=== PATIENT | female | born 1950 | race Caucasian/White ===

== ENCOUNTER 2017-11-08 09:55 | Inpatient (IN) | payer MEDICARE, BC ==
[~2017-11-08] VITALS: Ht 152.4 cm; Wt 59.1 kg
[2017-11-08 09:55] VITALS: BP 105/72; PULSE 126; RESP 16; TEMP 98.1; O2SAT 100
--- NOTE | 2017-11-08 10:04 | PD ---
HPI Chief Complaint: Knee pain Time Seen by Provider: 09:57 Travel History International Travel<30 days: No Contact w/Intl Traveler<30days: No History of Present Illness HPI Patient comes emergency department complaining of right knee pain that began yesterday. Patient states that she went to put her shoes on when she slipped out of bed landing on her right knee causing pain. Patient describes pain as a sharp pain over the anterior aspect of her right knee without radiation. Patient reports taking ibuprofen and icing it with minimal relief of symptoms. Not moving her knee improves the pain. Pain is worse with movement and trying to stand. Patient states she normally does not ambulate secondary to having septicemia left in a weakened state. PFSH Past Medical History Atrial Fibrillation: Yes High Cholesterol: Yes Hypertension: Yes Thyroid Disease: Yes Social History Alcohol Use: Yes Tobacco Use: No Substance Use: No Allergies-Medications (Allergen,Severity, Reaction): Coded Allergies: No Known Allergies (Unverified , 11/08/17) Reported Meds & Prescriptions Reported Meds & Active Scripts Active Reported Diltiazem (Diltiazem HCl) 60 Mg Tab 60 Mg PO TID Bupropion HCl 100 Mg Tab 150 Mg PO BID Potassium Chloride ER (Potassium Chloride) 20 Meq Tab 20 Meq PO BID Metoprolol Tartrate 25 Mg Tab 12.5 Mg PO BID Levetiracetam 500 Mg Tab 500 Mg PO BID Vitamin B Complex (B-Complex Vitamins) 1 Tab 1 Tab PO DAILY Rosuvastatin (Rosuvastatin Calcium) 20 Mg Tab 20 Mg PO DAILY Omeprazole 40 Mg Cap 40 Mg PO DAILY Multiple Vitamin 1 Tab 1 Tab PO DAILY Mirtazapine 15 Mg Tab 15 Mg PO HS Melatonin 5 Mg Tab 6 Mg PO HS Levothyroxine (Levothyroxine Sodium) 75 Mcg Tab 75 Mcg PO DAILY Digoxin 0.125 Mg Tab 0.125 Mg PO DAILY Vitamin D3 (Cholecalciferol) 1,000 Unit Cap 1,000 Units DAILY Calcitonin (River) Nasal [place] (Calcitonin River) 200 Units/Act Soln 1 [place] NASAL DAILY Alternate nostrils daily. Aspirin 81 (Aspirin) 81 Mg Tabdr 81 Mg PO DAILY Review of Systems Except as stated in HPI: all other systems reviewed are Neg Physical Exam Narrative GENERAL: Well-developed, well nourished, in no acute distress, and non-ill appearing. SKIN: Focused skin assessment warm and dry. HEAD: Atraumatic. Normocephalic. EYES: Pupils equal and round. EOMI. No scleral icterus. No injection or drainage. ENT: No nasal bleeding or discharge. Mucous membranes pink and moist. NECK: Trachea midline. Supple. No nuclear rigidity. CARDIOVASCULAR: Dorsal pulses 2+, intact, and equal bilaterally. Capillary refill less than 2 seconds. Regular rate and rhythm. No murmur appreciated. RESPIRATORY: No accessory muscle use. No respiratory distress. Lung sounds are clear throughout.. MUSCULOSKELETAL: No obvious deformities. No clubbing. No cyanosis. No edema. Full range of motion. Knee: Negative patellar apprehension, varus and valgus maneuvers, anterior draw test, and Dana test. Pulses equal BL distal to injury. Capillary refill less than 2 seconds distal to injury and equal BL. FROM distal to injury and equal BL. Strength distal to injury equal BL. NV intact distal to injury. Dorsal pulses equal BL. Sensation equal BL 1st web space. Patient reports tenderness palpation over anterior aspect of right knee. NEUROLOGICAL: Awake and alert. No obvious cranial nerve deficits. Motor grossly within normal limits. Normal speech. PSYCHIATRIC: Appropriate mood and affect; insight and judgment normal. Data Data Last Documented VS Vital Signs Date Time Temp Pulse Resp B/P (MAP) Pulse Ox O2 Delivery O2 Flow Rate FiO2 11/08/17 09:55 98.1 126 16 105/72 (83) 100 11/08/17 09:55 Room Air Orders Orders Knee, Complete (4vws) (11/08/17 ) Femur (Ap & Lat/2vws) (11/08/17 ) Basic Metabolic Panel (Bmp) (11/08/17 10:52) Complete Blood Count With Diff (11/08/17 10:52) Prothrombin Time / Inr (Pt) (11/08/17 10:52) Act Partial Throm Time (Ptt) (11/08/17 10:52) Iv Access Insert/Monitor (11/08/17 10:52) Ecg Monitoring (11/08/17 10:52) Oximetry (11/08/17 10:52) Sodium Chloride 0.9% Flush (Ns Flush) (11/08/17 11:00) Electrocardiogram (11/08/17 10:52) Chest, Single Ap (11/08/17 10:52) Digoxin (11/08/17 10:55) Admit Order (Ed Use Only) (11/08/17 11:19) Splint Or Brace Apply/Monitor (11/08/17 11:19) [employer] Request For Service (11/08/17 11:19) Labs Laboratory Tests Test 11/08/17 11:06 White Blood Count 10.4 TH/MM3 Red Blood Count 3.76 MIL/MM3 Hemoglobin 12.8 GM/DL Hematocrit 36.4 % Mean Corpuscular Volume 97.0 FL Mean Corpuscular Hemoglobin 34.0 PG Mean Corpuscular Hemoglobin Concent 35.1 % Red Cell Distribution Width 15.5 % Platelet Count 233 TH/MM3 Mean Platelet Volume 9.7 FL CBC Comment AUTO DIFF Prothrombin Time 13.0 SEC Prothromb Time International Ratio 1.3 RATIO Activated Partial Thromboplast Time 27.0 SEC Blood Urea Nitrogen 17 MG/DL Creatinine 0.89 MG/DL Random Glucose 84 MG/DL Calcium Level 8.1 MG/DL Sodium Level 141 MEQ/L Potassium Level 5.2 MEQ/L Chloride Level 108 MEQ/L Carbon Dioxide Level 25.4 MEQ/L Anion Gap 8 MEQ/L Estimat Glomerular Filtration Rate 64 ML/MIN MDM Medical Decision Making Medical Screen Exam Complete: Yes Emergency Medical Condition: Yes Interpretation(s) EKG reviewed by Dr. Sierra shows sinus tachycardia with ventricular rate of 129. No STEMI. Last Impressions Knee X-Ray 11/08/17 0000 Signed Impressions: Service Date/Time: Wednesday, November 08, 2017 10:03 - CONCLUSION: Spiral and mildly displaced fracture of the distal femur. Js Hunter MD Differential Diagnosis Fracture, strain, contusion, dislocation Narrative Course Patient seen and examined. Initial radiological studies were ordered. Upon reviewing the x-rays findings were discussed with patient patient initially did not want to have surgery done, however speaking with orthopedics patient is not agreeable to have surgical intervention. IV was established and preop orders were placed. Patient was placed in a knee immobilizer. Discussed patient with Dr. Sierra, who is in agreement plan of care and disposition. Discussed plan of care with patient, who is agreeable for admission. All questions were answered. Discussed patient with hospitalist, who is agreeable to admit the patient. Patient remained stable throughout ED course. Physician Communication Physician Communication [id number] Gonzalez, who recommends surgical intervention at [facility] in [place] and admit admission to medicine with a consult to his services. [id number] Chong, who is agreeable to admit the patient. Diagnosis Primary Impression: Closed right femoral fracture Qualified Codes: S72.91XA - Unspecified fracture of right femur, initial encounter for closed fracture Admitting Information Admitting Physician Requests: Admit Condition: Stable Wily Pierce November 08, 2017 10:04
[2017-11-08] MEDS ORDERED: ASPI1TAB57 PO (10:15)
[2017-11-08] MEDS ORDERED: MELA5 PO (10:15)
[2017-11-08] MEDS ORDERED: CHOL10008 (10:15)
[2017-11-08] MEDS ORDERED: DIGO0.12 PO (10:15)
[2017-11-08] MEDS ORDERED: LEVO75TA3 PO (10:15)
[2017-11-08] MEDS ORDERED: CALC200S NASAL (10:15)
--- NOTE | 2017-11-08 10:19 | RADRPT ---
EXAM DATE/TIME: 11/08/2017 10:03 [facility] COMPARISON: No previous studies available for comparison. INDICATIONS : Fall yesterday, right knee pain. MEDICAL HISTORY : None. SURGICAL HISTORY : rt knee scope ENCOUNTER: Initial ACUITY: 2 days PAIN SCORE: 10/10 LOCATION: Right knee FINDINGS: There is a spiral fracture through the distal diametaphysis and metaphysis of the femur with mild sep aration and mild posterior angulation of the distal fracture fragment. Mild soft tissue swelling abo ut the distal femur. Severe osteopenia. Proximal tibia and fibula appear grossly intact. CONCLUSION: Spiral and mildly displaced fracture of the distal femur. Js Hunter MD on November 08, 2017 at 10:17 Board Certified Radiologist. This report was verified electronically.
[2017-11-08] MEDS ORDERED: MIRTA15 PO (10:20)
[2017-11-08] MEDS ORDERED: VITATAB11 PO (10:20)
[2017-11-08] MEDS ORDERED: ROSU1TAB8 PO (10:20)
[2017-11-08] MEDS ORDERED: MULTTAB67 PO (10:20)
[2017-11-08] MEDS ORDERED: LEVE500T8 PO (10:20)
[2017-11-08] MEDS ORDERED: DILT60TA PO (10:20)
[2017-11-08] MEDS ORDERED: BUPR100T4 PO (10:20)
[2017-11-08] MEDS ORDERED: OMEP40CA2 PO (10:20)
[2017-11-08] MEDS ORDERED: POTA-163 PO (10:20)
[2017-11-08] MEDS ORDERED: METO25TA3 PO (10:20)
[2017-11-08] MEDS ORDERED: SODIUM CHLORIDE 0.9% FLUSH 10 ML FLUSH IV FLUSH PRN ×2 (11:00→11:45)
[2017-11-08 11:18] LABS: HEMATOCRIT 36.4 % (35.0-46.0); HEMOGLOBIN 12.8 GM/DL (11.6-15.3); MEAN CORPUSCULAR HGB CONC 35.1 % (32.0-36.0); MEAN PLATELET VOLUME 9.7 FL (7.0-11.0); PLATELET COUNT 233 TH/MM3 (150-450); RED BLOOD COUNT 3.76 MIL/MM3 (4.00-5.30); RED CELL DISTRIBUTION WIDTH 15.5 % (11.6-17.2); WHITE BLOOD COUNT 10.4 TH/MM3 (4.0-11.0)
[2017-11-08 11:38] LABS: CALCIUM 8.1 MG/DL (8.5-10.1)
[2017-11-08 11:39] LABS: BICARBONATE 25.4 MEQ/L (21.0-32.0)
[2017-11-08 11:40] LABS: INTERNATIONAL NORMALIZED RATIO 1.3 RATIO
[2017-11-08 11:42] LABS: CREATININE 0.89 MG/DL (0.50-1.00)
[2017-11-08] MEDS ORDERED: diphenhydrAMINE HCL 25 MG CAP PO PRN (11:45)
[2017-11-08] MEDS ORDERED: MORPHINE SULFATE 8 MG/ML INJ IV PUSH PRN (11:45)
[2017-11-08] MEDS ORDERED: diphenhydrAMINE HCL 50 MG/ML VIAL IV PUSH PRN (11:45)
[2017-11-08] MEDS ORDERED: NALOXONE HCL 0.4 MG/ML AMP IV PUSH PRN (11:45)
--- NOTE | 2017-11-08 11:53 | EKG ---
Date Performed: 11/08/2017 Time Performed: 11:01:46 PTAGE: 67 years EKG: Baseline artifact present PROBABLE SINUS TACHYCARDIA LOW QRS VOLTAGE IN PRECORDIAL LEADS PO SSIBLE ANTERIOR MYOCARDIAL INFARCTION Nonspecific T wave changes ABNORMAL RHYTHM ECG NO PREVIOUS TRACING DOCTOR: Dayron Palomo Interpretating Date/Time 11/08/2017 11:51:34
--- NOTE | 2017-11-08 11:57 | RADRPT ---
EXAM DATE/TIME: 11/08/2017 11:20 [facility] COMPARISON: KNEE RIGHT COMPLETE (4VWS), November 08, 2017, 10:03. INDICATIONS : Fall yesterday, right knee pain. MEDICAL HISTORY : None. SURGICAL HISTORY : right knee scope ENCOUNTER: Subsequent ACUITY: 2 days PAIN SCORE: 10/10 LOCATION: Right knee FINDINGS: 4 views of the right femur demonstrate an oblique fracture displaced by 6 mm in the distal femoral me taphysis. It is better visualized on the dedicated knee x-ray series. Proximal femur is intact. There is mild right hip joint osteoarthritis. Visualized pelvic bones demonstrate no acute finding. There is muscular atrophy but otherwise no acute soft tissue abnormality is seen. There is arterial vascula r calcification. CONCLUSION: There is an oblique mildly displaced fracture of the distal femoral metaphysis. Please refer to knee x-ray series for further description. Zaire Sam MD on November 08, 2017 at 11:50 Board Certified Radiologist. This report was verified electronically.
--- NOTE | 2017-11-08 11:58 | RADRPT ---
EXAM DATE/TIME: 11/08/2017 11:20 [facility] COMPARISON: No previous studies available for comparison. INDICATIONS : Pre op right knee fracture. MEDICAL HISTORY : None. SURGICAL HISTORY : right knee scope ENCOUNTER: Subsequent ACUITY: 2 days PAIN SCORE: 10/10 LOCATION: Right knee FINDINGS: Rotated AP view of the chest demonstrates a normal-sized cardiac silhouette. There is mild atelectasi s at the lung bases secondary to underinflation. No pleural effusion, airspace consolidation, or pneu mothorax is identified. The bones and soft tissues demonstrate no acute finding. There is an old frac ture of the left proximal humerus. CONCLUSION: No acute cardiopulmonary abnormality is identified. Zaire Sam MD on November 08, 2017 at 11:55 Board Certified Radiologist. This report was verified electronically.
[2017-11-08 12:00] LABS: BANDS 1 % (0-6); LYMPHOCYTES 16 % (9-44); MONOCYTES 4 % (0-8); NEUTROPHIL # MANUAL DIFF 8.3 TH/MM3 (1.8-7.7); POLYS (SEG NEUTROPHILS) 79 % (16-70)
[2017-11-08] MEDS: LACTATED RINGER'S 1000 ML INJ 1,000 ML IV SCH ×2 (13:03→21:40)
[2017-11-08 13:11] VITALS: BP 93/67; PULSE 126; RESP 16; O2SAT 94
[2017-11-08 15:30] VITALS: BP 111/67; PULSE 120; RESP 18; TEMP 98.1
--- NOTE | 2017-11-08 19:15 | MB ---
cc: Andry Gonzalez MD DATE: 11/08/2017 REASON FOR CONSULTATION: Right distal femur fracture. HISTORY OF PRESENT ILLNESS: The patient is a 67-year-old female who is a very limited ambulator. The patient essentially does transfers to a wheelchair. She says that this started happening about a year, year and a half ago, when she had sepsis and she says she never really recovered her ability to walk. The patient says that she was going to put her shoes on, she slipped out of bed, landed onto the right knee, causing immediate pain. She describes pain in the anterior aspect of the knee, without specific new numbness or tingling. She says any motion of the knee creates pain. She was admitted to the hospital. X-rays were taken. She was found to have a distal femur fracture. She was transferred from [facility] to the [facility]. PAST MEDICAL HISTORY: Positive for atrial fibrillation, hypertension, thyroid disease, high cholesterol. SOCIAL HISTORY: Does drink alcohol, does not smoke, does not use illicit drugs. ALLERGIES: NO KNOWN DRUG ALLERGIES. MEDICATIONS: See the chart. Note that she is on digoxin and aspirin. REVIEW OF SYSTEMS: A 12 point review of systems is negative except noted in history of present illness. PHYSICAL EXAMINATION: VITAL SIGNS: The patient's temperature is 98.1, pulse 120, respirations 18, blood pressure 111/67. GENERAL: The patient is awake, alert and oriented x 3. She has normal affect, insight and judgment. She is in no significant distress. She is wearing nasal cannula O2. HEENT: Her head is atraumatic. Oropharynx is moist. NECK: Supple. HEART: No murmurs. RESPIRATORY: She has normal inspiratory effort with no labored breathing. BACK: No CVA tenderness. EXTREMITIES: Bilateral upper extremities had good active range of motion. Some minor skin tears noted. Right lower extremity has just some mild swelling. No skin tears were noted. She has normal alignment about the right leg. There is pain with any motion. She can move the toes well and she has brisk refill about the toes. Ankle had no tenderness. Left knee had no swelling. LABORATORY STUDIES: Shows a white cell count of 10.4, hematocrit of 36.4, platelets of 233. Coagulation studies, INR is 1.3. Chemistry shows a calcium of 8.1, chloride 108. Toxicology, digoxin 0.9. IMAGING: X-rays of the right femur and the knee shows that the patient has a distal femur/supracondylar femur fracture which had some mild displacement. It is oblique in orientation. There is some arthritic change about the knee. I did review the report from the radiologist as well and agree with them. IMPRESSION: 1. Right leg, mildly displaced supracondylar femur fracture. 2. Essentially nonambulator. DECISION MAKING: We discussed the diagnosis in detail and treatment options. We discussed the option for operative and nonoperative management of this condition. I do feel that operative management is potentially indicated, as there is a significant chance for this fracture to displace. The patient also says she is going to be traveling and displacement of the fracture could lead to a significant life threatening condition. The patient understands that she will continue to be a limited ambulator, but at least with fixation of the fracture, there is a better chance for pain control and also of having good alignment of the leg, which can ultimately help her in transfer long-term and hopefully to provide further stability and strength to the leg for transfers. She understands the risks of surgery include, but are not limited, to injury to nerves or vessels, bleeding, infection, failure of hardware, need for reoperation, continued pain, loss of range of motion of associated joints, DVT, pulmonary embolus, pneumonia and . The patient does want to move forward with surgical management. All questions have been answered. MD CHARLEE Arvizu/GRACE , 06:41 PM , 07:14 PM
[2017-11-08 20:00] VITALS: BP 97/63; PULSE 115; RESP 20; TEMP 98.9; O2SAT 91
[2017-11-08] MEDS ORDERED: PILL SPLITTER OTHER PRN (20:00)
[2017-11-08 20:45] VITALS: O2SAT 88
[2017-11-08] MEDS: MELATONIN 5 MG TAB PO SCH (21:35)
[2017-11-08] MEDS: DILTIAZEM HCL 60 MG TAB PO SCH (21:35)
[2017-11-08] MEDS: levETIRAcetam 500 MG TAB PO SCH (21:35)
[2017-11-08] MEDS: SODIUM CHLORIDE 0.9% FLUSH 10 ML FLUSH IV FLUSH SCH (21:35)
[2017-11-08] MEDS: METOPROLOL TARTRATE 25 MG TAB PO SCH (21:35)
[2017-11-08] MEDS: MIRTAZAPINE 15 MG TAB PO SCH (21:35)
[2017-11-08] MEDS: buPROPion HCL 100 MG TAB PO SCH (21:35)
[2017-11-08 21:40] VITALS: O2SAT 98
[2017-11-08] MEDS ORDERED: POVIDONE IODINE 5% (ANTISEPSIS KIT) 4 APPLICATIONS EACH NARE PRN (21:45)
[2017-11-08] MEDS ORDERED: METOPROLOL TARTRATE 25 MG TAB PO PRN (21:45)
[2017-11-08] MEDS ORDERED: CHLORHEXIDINE GLUCONATE 2 % 1 PACK (2 CLOTHS) TOPICAL PRN (21:45)
[2017-11-08] MEDS ORDERED: SODIUM CHLORID 0.9% 500 ML IV PRN (21:45)
[2017-11-08] MEDS ORDERED: LACTATED RINGER'S 1000 ML IV PRN (21:45)
[2017-11-08] MEDS: ACETAMINOPHEN/HYDROcodone 325 MG/5 MG TAB PO PRN (22:53)
--- NOTE | 2017-11-08 23:14 | HHI.HP ---
[facility] Service [facility] ([place], [place])ists Primary Care Physician Unknown Admission Diagnosis Closed femur fracture Diagnoses: (1) Closed right femoral fracture (2) Acute respiratory failure with hypoxia Chief Complaint: right knee pain Travel History International Travel<30 Days: No Contact w/Intl Traveler <30 Da: No Traveled to Known Affected Are: No History of Present Illness Ms. Carbone is a 67 y/o female from [place] with a history of generalized weakness requiring an electric scooter for mobilization, hypothyroidism, seizure, atrial fibrillation not on anticoagulation, hypertension, hyperlipidemia, GERD, osteoporosis, and osteoarthritis who fell from a bed and landed on her right knee with subsequent severe pain. She was found to have a mildly displaced spiral fracture of distal femur. The patient is seen in her hospital room. She reports adequate pain relief to right knee with current medications. She states the current pain is about 4-5/ 10. Pain is worsened by any knee movement. She denies any loc, chest pain, sob , syncope, dizziness prior to fall out of bed. Denies any recent illnesses. She reports generalized weakness for the past few years requiring use of an electric scooter for mobility. She states she is able to stand and bear weight but cannot move around due to weakness. She is unable to tell me what caused this weakness. Review of Systems Except as stated in HPI: all other systems reviewed are Neg Past Family Social History Past Medical History Limited mobility secondary to generalized weakness requiring electronic scooter Seizure x 1 - 5 years ago - on Keppra Atrial fibrillation - not on anticoagulation - followed by her pcp Dr. Camarena in [place] Hypertension Hyperlipidemia GERD Nephrolithiasis Arthritis Depression Osteoporosis . Past Surgical History Right ankle plates/pins Right knee arthroscopy Left hip replacement Right shoulder rotator cuff repair Gastric Bypass . Reported Medications Reported Meds & Active Scripts Active Reported Diltiazem (Diltiazem HCl) 60 Mg Tab 60 Mg PO TID Bupropion HCl 100 Mg Tab 150 Mg PO BID Potassium Chloride ER (Potassium Chloride) 20 Meq Tab 20 Meq PO BID Metoprolol Tartrate 25 Mg Tab 12.5 Mg PO BID Levetiracetam 500 Mg Tab 500 Mg PO BID Vitamin B Complex (B-Complex Vitamins) 1 Tab 1 Tab PO DAILY Rosuvastatin (Rosuvastatin Calcium) 20 Mg Tab 20 Mg PO DAILY Omeprazole 40 Mg Cap 40 Mg PO DAILY Multiple Vitamin 1 Tab 1 Tab PO DAILY Mirtazapine 15 Mg Tab 15 Mg PO HS Melatonin 5 Mg Tab 6 Mg PO HS Levothyroxine (Levothyroxine Sodium) 75 Mcg Tab 75 Mcg PO DAILY Digoxin 0.125 Mg Tab 0.125 Mg PO DAILY Vitamin D3 (Cholecalciferol) 1,000 Unit Cap 1,000 Units DAILY Calcitonin ([place]) Nasal [place] (Calcitonin [place]) 200 Units/Act Soln 1 [place] NASAL DAILY Alternate nostrils daily. Aspirin 81 (Aspirin) 81 Mg Tabdr 81 Mg PO DAILY . Allergies: Coded Allergies: No Known Allergies (Unverified , 11/08/17) Family History Brother with emphysema Mother with osteoporosis No family hx of CA . 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 Physical Exam Vital Signs Vital Signs Date Time Temp Pulse Resp B/P (MAP) Pulse Ox O2 Delivery O2 Flow Rate FiO2 11/08/17 20:00 98.9 115 20 97/63 (74) 91 11/08/17 18:40 85 Nasal Cannula 2.00 11/08/17 15:30 98.1 120 18 111/67 (82) 11/08/17 14:07 11/08/17 13:11 126 16 93/67 (76) 94 Room Air 11/08/17 09:55 98.1 126 16 105/72 (83) 100 11/08/17 09:55 16 100 Room Air Physical Exam CONSTITUTIONAL: This is a thin, elderly female patient, in no apparent distress. INTEGUMENTARY: No rashes. Cool and dry. Multiple ecchymoses noted on extremities. HEAD: Atraumatic. Normocephalic. EYES: No scleral icterus. No injection or drainage. ENT: Nose without bleeding, purulent drainage. Airway patent. NECK: Trachea midline. No JVD. CARDIOVASCULAR: Regular rate and rhythm without murmurs, gallops, or rubs. RESPIRATORY: Clear to auscultation. Breath sounds diminished at bases, equal bilaterally. No wheezes, rales, or rhonchi. GASTROINTESTINAL: Abdomen soft, non-tender, nondistended. No guarding. MUSCULOSKELETAL: Extremities without clubbing, cyanosis, or edema. No calf tenderness. NEUROLOGICAL: Awake and alert. Motor and sensory grossly within normal limits. Normal speech. . Laboratory Laboratory Tests Test 11/08/17 11:06 11/08/17 20:33 White Blood Count 10.4 Red Blood Count 3.76 Hemoglobin 12.8 Hematocrit 36.4 Mean Corpuscular Volume 97.0 Mean Corpuscular Hemoglobin 34.0 Mean Corpuscular Hemoglobin Concent 35.1 Red Cell Distribution Width 15.5 Platelet Count 233 Mean Platelet Volume 9.7 CBC Comment AUTO DIFF Differential Total Cells Counted 100 Neutrophils % (Manual) 79 Band Neutrophils % 1 Lymphocytes % 16 Monocytes % 4 Neutrophils # (Manual) 8.3 Differential Comment FINAL DIFF MANUAL Platelet Estimate NORMAL Platelet Morphology Comment NORMAL Prothrombin Time 13.0 Prothromb Time International Ratio 1.3 Activated Partial Thromboplast Time 27.0 Blood Urea Nitrogen 17 Creatinine 0.89 Random Glucose 84 Calcium Level 8.1 Sodium Level 141 Potassium Level 5.2 Chloride Level 108 Carbon Dioxide Level 25.4 Anion Gap 8 Estimat Glomerular Filtration Rate 64 Digoxin Level 0.9 Blood Gas Puncture Site LT RADIAL Blood Gas Patient Temperature 98.6 Blood Gas HCO3 22 Blood Gas Base Excess -0.8 Blood Gas Oxygen Saturation 84 Arterial Blood pH 7.48 Arterial Blood Partial Pressure CO2 30 Arterial Blood Partial Pressure O2 52 Arterial Blood Oxygen Content 11.8 Arterial Blood Carboxyhemoglobin 0.8 Arterial Blood Methemoglobin 1.4 Blood Gas Hemoglobin 10.0 Oxygen Delivery Device NASAL CANNULA Blood Gas Liter Flow 2 Result Diagram: 11/08/17 1106 11/08/17 1106 Imaging Last Impressions Chest X-Ray 11/08/17 1052 Signed Impressions: Service Date/Time: Wednesday, November 08, 2017 11:20 - CONCLUSION: No acute cardiopulmonary abnormality is identified. Zaire Sam MD Knee X-Ray 11/08/17 0000 Signed Impressions: Service Date/Time: Wednesday, November 08, 2017 10:03 - CONCLUSION: Spiral and mildly displaced fracture of the distal femur. Js Hunter MD Femur X-Ray 11/08/17 0000 Signed Impressions: Service Date/Time: Wednesday, November 08, 2017 11:20 - CONCLUSION: There is an oblique mildly displaced fracture of the distal femoral metaphysis. Please refer to knee x-ray series for further description. MD Nalini Howard VTE Risk Assessment Caprini VTE Risk Assessment: Mod/High Risk (score >= 2) Caprini Risk Assessment Model Point Value = 1 Point Value = 2 Point Value = 3 Point Value = 5 Age 41-60 Minor surgery BMI > 25 kg/m2 Swollen legs Varicose veins or History of unexplained or recurrent spontaneous Oral contraceptives or hormone replacement Sepsis (< 1 month) Serious lung disease, including pneumonia (< 1 month) Abnormal pulmonary function Acute myocardial infarction Congestive heart failure (< 1 month) History of inflammatory bowel disease Medical patient at bed rest Age 61-74 Arthroscopic surgery Major open surgery (> 45 min) Laparoscopic surgery (> 45 min) Malignancy Confined to bed (> 72 hours) Immobilizing plaster cast Central venous access Age >= 75 History of VTE Family history of VTE Factor V Leiden Prothrombin [id number] Lupus anticoagulant Anticardiolipin antibodies Elevated serum homocysteine Heparin-induced thrombocytopenia Other congenital or acquired thrombophilia Stroke (< 1 month) Elective arthroplasty Hip, pelvis, or leg fracture Acute spinal cord injury (< 1 month) Prophylaxis Regimen Total Risk Factor Score Risk Level Prophylaxis Regimen 0-1 Low Early ambulation 2 Moderate Order ONE of the following: *Sequential Compression Device (SCD) *Heparin 5000 units SQ BID 3-4 Higher Order ONE of the following medications: *Heparin 5000 units SQ TID *Enoxaparin/Lovenox 40 mg SQ daily (WT < 150 kg, CrCl > 30 mL/min) *Enoxaparin/Lovenox 30 mg SQ daily (WT < 150 kg, CrCl > 10-29 mL/min) *Enoxaparin/Lovenox 30 mg SQ BID (WT < 150 kg, CrCl > 30 mL/min) AND/OR *Sequential Compression Device (SCD) 5 or more Highest Order ONE of the following medications: *Heparin 5000 units SQ TID (Preferred with Epidurals) *Enoxaparin/Lovenox 40 mg SQ daily (WT < 150 kg, CrCl > 30 mL/min) *Enoxaparin/Lovenox 30 mg SQ daily (WT < 150 kg, CrCl > 10-29 mL/min) *Enoxaparin/Lovenox 30 mg SQ BID (WT < 150 kg, CrCl > 30 mL/min) AND *Sequential Compression Device (SCD) Assessment and Plan Problem List: (1) Closed right femoral fracture ICD Code: S72.91XA - Unspecified fracture of right femur, initial encounter for closed fracture Status: Acute (2) Acute respiratory failure with hypoxia ICD Code: J96.01 - Acute respiratory failure with hypoxia Assessment and Plan Ms. Carbone is a 67 y/o female from [place] with a history of generalized weakness requiring an electric scooter for mobilization, hypothyroidism, seizure, atrial fibrillation not on anticoagulation, hypertension, hyperlipidemia, GERD, osteoporosis, and osteoarthritis who fell from a bed and landed on her right knee with subsequent severe pain. She was found to have a mildly displaced spiral fracture of distal femur. Closed right femoral fracture - orthopedics consulted; patient seen by Dr. Gonzalez - morphine/norco prn pain - NPO for surgical repair Acute respiratory failure with hypoxia - ABG with oxygen saturation 84 % pO2 52 on 2 liters via NC - oxygen upwardly titrating - patient not in respiratory distress at any time - CXR personally reviewed with mild atelectasis at lung bases - no acute cardiopulmonary process noted - will check d dimer; if elevated, will check CT PA to r/o PE Atrial fibrillation - continuous cardiac telemetry to monitor for arrhythmia - continue home metoprolol,dig and diltiazem - not on anticoagulation per patient - on baby ASA per med rec - holding asa for now Daily alcohol use of uncertain amount - will place on CIWA protocol - Thiamine, MVI IV Seizures - continue home Keppra - seizure precautions DVT prophylaxis - chemoprophylaxis contraindicated at this time due to pending orthopedic surgery - SCDs/TEDs on unaffected extremity Discussed Condition With Patient, RN, parking technician, and Dr. Villar . Physician Certification 2 Midnight Certification Type: Admission for Inpatient Services Order for Inpatient Services The services are ordered in accordance with Medicare regulations or non- Medicare payer requirements, as applicable. In the case of services not specified as inpatient-only, they are appropriately provided as inpatient services in accordance with the 2-midnight benchmark. Estimated LOS (days): 4 days is the estimated time the patient will need to remain in the hospital, assuming treatment plan goals are met and no additional complications. Post-Hospital Plan: Not yet determined Problem Qualifiers (1) Closed right femoral fracture: Qualified Codes: S72.91XA - Unspecified fracture of right femur, initial encounter for closed fracture Elizabeth Issa November 08, 2017 23:14
[2017-11-09] VITALS: BP 111/65; PULSE 91; RESP 20; TEMP 98.4; O2SAT 100
[2017-11-09] MEDS ORDERED: SODIUM CHLORIDE 0.9% FLUSH 10 ML FLUSH IV FLUSH PRN (02:45)
[2017-11-09] MEDS ORDERED: LORazepam 2 MG/ML VIAL IV PUSH PRN ×4 (02:45)
[2017-11-09] MEDS ORDERED: LORazepam 2 MG TAB PO PRN (02:45)
[2017-11-09] MEDS ORDERED: FLUMAZENIL 0.5 MG/5 ML VIAL IV PUSH PRN (02:45)
[2017-11-09] MEDS ORDERED: LORazepam 1 MG TAB PO PRN (02:45)
[2017-11-09] MEDS: ACETAMINOPHEN/HYDROcodone 325 MG/5 MG TAB PO PRN ×2 (03:12→09:14)
[2017-11-09 03:20] LABS: AUTOMATED NEUTROPHIL # 5.1 TH/MM3 (1.8-7.7); BASOPHIL % 0.1 % (0.0-2.0); EOSINOPHIL # 0.1 TH/MM3 (0-0.4); EOSINOPHIL % 0.8 % (0.0-4.0); HEMATOCRIT 31.3 % (35.0-46.0); HEMOGLOBIN 10.9 GM/DL (11.6-15.3); LYMPH % 27.6 % (9.0-44.0); LYMPHOCYTE # 2.2 TH/MM3 (1.0-4.8); MEAN CELL VOLUME 98.9 FL (80.0-100.0); MEAN CORPUSCULAR HEMOGLOBIN 34.3 PG (27.0-34.0); MEAN CORPUSCULAR HGB CONC 34.7 % (32.0-36.0); MEAN PLATELET VOLUME 9.3 FL (7.0-11.0); MONO % 5.6 % (0.0-8.0); MONOCYTE # 0.4 TH/MM3 (0-0.9); NEUT % 65.9 % (16.0-70.0); PLATELET COUNT 157 TH/MM3 (150-450); RED BLOOD COUNT 3.16 MIL/MM3 (4.00-5.30); WHITE BLOOD COUNT 7.8 TH/MM3 (4.0-11.0)
[2017-11-09 03:31] LABS: ALT (GPT) 28 U/L (10-53); AST (GOT) 34 U/L (15-37); BICARBONATE 29.5 MEQ/L (21.0-32.0); BLOOD UREA NITROGEN 16 MG/DL (7-18); CALCIUM 7.6 MG/DL (8.5-10.1); CHLORIDE 108 MEQ/L (98-107); CREATININE 0.76 MG/DL (0.50-1.00); GLOMERULAR FILTRATION RATE 76 ML/MIN (>89); GLUCOSE,RANDOM 67 MG/DL (74-106); SODIUM (NA) 144 MEQ/L (136-145)
[2017-11-09 03:33] LABS: ALKALINE PHOSPHATASE 264 U/L (45-117); TOTAL BILIRUBIN ADULT 1.3 MG/DL (0.2-1.0); TOTAL PROTEIN 4.2 GM/DL (6.4-8.2)
[2017-11-09] MEDS ORDERED: DEXTROSE 50% IN WATER 50 ML SYRINGE IV PUSH ONE (03:45)
[2017-11-09] MEDS ORDERED: DEXTROSE 5% IN WATE 1000ML INJ 1,000 ML IV SCH (03:45)
[2017-11-09 04:00] VITALS: BP 99/62; PULSE 70; RESP 20; TEMP 98.2; O2SAT 100
[2017-11-09] MEDS ORDERED: IOHEXOL 350 MG/ML 10 ML VIAL (for RAD DIAG) IVCONTRAST ONE (04:21)
--- NOTE | 2017-11-09 04:46 | RADRPT ---
EXAM DATE/TIME: 11/09/2017 04:14 [facility] COMPARISON: CHEST SINGLE AP, November 08, 2017, 11:20. INDICATIONS : Shortness of breath. IV CONTRAST: 45 cc Omnipaque 350 (iohexol) IV RADIATION DOSE: 8.74 CTDIvol (mGy) MEDICAL HISTORY : Hypertension. Gastroesophageal reflux disease. Femur fracture. SURGICAL HISTORY : Gastric bypass. ENCOUNTER: Initial ACUITY: 1 day PAIN SCALE: 4/10 LOCATION: Bilateral chest TECHNIQUE: Volumetric scanning of the chest was performed using a pulmonary embolism protocol MIP images were re constructed. Using automated exposure control and adjustment of the mA and/or kV according to patien t size, radiation dose was kept as low as reasonably achievable to obtain optimal diagnostic quality images. DICOM format image data is available electronically for review and comparison. Follow-up recommendations for detected pulmonary nodules are based at a minimum on nodule size and pa tient risk factors according to Fleischner Society Guidelines. FINDINGS: PULMONARY ARTERIES: Very tiny pulmonary embolus to the right upper lobe pulmonary artery. Pulmonary arteries are otherwis e clear LUNGS: Scattered areas of pleural parenchymal atelectasis/scarring, left greater than right small bilateral pleural effusions with concomitant atelectatic changes in the dependent portions of the lower hemitho races bilaterally. PLEURAE: Small bilateral pleural effusions. MEDIASTINUM: There is good visualization of the great vessels of the middle mediastinum. No evidence of mediastin al or hilar adenopathy/mass. Dense atherosclerotic calcification of the coronary arteries. MUSCULOSKELETAL: Within normal limits for patient age. MISCELLANEOUS: The visualized upper abdominal organs demonstrate no acute abnormality. Diffuse hepatic fatty infiltr ation CONCLUSION: 1. There is a very tiny, isolated pulmonary embolus to the upper lobe right pulmonary artery. Pulmona ry artery is otherwise clear. 2. Patchy pleural-parenchymal and atelectasis/scarring in both hemithoraces, left than right. There i s also small bilateral pleural effusions with concomitant atelectatic changes in the bases. 3. Dense atherosclerotic calcification of the coronary arteries. 4. Diffuse hepatic fatty infiltration Juno Conway MD on November 09, 2017 at 4:41 Board Certified Radiologist. This report was verified electronically.
[2017-11-09] MEDS: MULTIVITAMIN INJ 10 ML, FOLIC ACID INJ 1 MG in SODIUM CHLORID 0.9% 500 ML INJ 500 ML IV SCH (05:00)
[2017-11-09] MEDS: THIAMINE INJ 100 MG in SODIUM CHLORIDE 0.9% INJ 100 ML IV SCH (05:00)
[2017-11-09] MEDS: DILTIAZEM HCL 60 MG TAB PO SCH ×3 (06:00→21:33)
[2017-11-09] MEDS: LEVOTHYROXINE SODIUM 75 MCG TAB PO SCH (06:25)
[2017-11-09 08:00] VITALS: BP 100/66; PULSE 68; RESP 18; TEMP 98; O2SAT 99
[2017-11-09] MEDS ORDERED: DILTIAZEM HCL 60 MG TAB PO SCH (09:00)
[2017-11-09] MEDS ORDERED: NON-FORMULARY DRUG (Rosuvastatin 20 MG) PO SCH (09:00)
[2017-11-09] MEDS ORDERED: SODIUM CHLORIDE 0.9% FLUSH 10 ML FLUSH IV FLUSH SCH (09:00)
[2017-11-09] MEDS ORDERED: NON-FORMULARY DRUG (Omeprazole 40 MG) PO SCH (09:00)
[2017-11-09] MEDS: METOPROLOL TARTRATE 25 MG TAB PO SCH ×2 (09:03→21:11)
[2017-11-09] MEDS: buPROPion HCL 100 MG TAB PO SCH ×2 (09:03→21:34)
[2017-11-09] MEDS: PANTOPRAZOLE SOD 40 MG DELAYED RELEASE TAB PO SCH (09:03)
[2017-11-09] MEDS: levETIRAcetam 500 MG TAB PO SCH ×2 (09:04→21:11)
[2017-11-09] MEDS: DIGOXIN 0.125 MG TAB PO SCH (09:04)
[2017-11-09] MEDS: ATORVASTATIN 40 MG TAB PO SCH (09:04)
--- NOTE | 2017-11-09 11:49 | HHI.PR ---
Subjective Remarks Follow up patient with femur fracture. Patient is awaiting ortho eval for surgery. States pain is controlled, worse with movement. Denies any chest pain or SOB. 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 Objective Vitals Vital Signs Date Time Temp Pulse Resp B/P (MAP) Pulse Ox O2 Delivery O2 Flow Rate FiO2 11/09/17 08:00 98.0 68 18 100/66 (77) 99 11/09/17 04:00 98.2 70 20 99/62 (74) 100 11/09/17 03:00 Nasal Cannula 3.00 11/09/17 00:00 98.4 91 20 111/65 (80) 100 11/09/17 00:00 Nasal Cannula 4.00 11/08/17 21:40 98 11/08/17 20:45 88 Nasal Cannula 2.00 11/08/17 20:40 Nasal Cannula 5.00 11/08/17 20:00 98.9 115 20 97/63 (74) 91 11/08/17 19:35 Nasal Cannula 2.00 11/08/17 18:40 85 Nasal Cannula 2.00 11/08/17 15:30 98.1 120 18 111/67 (82) 11/08/17 14:07 11/08/17 13:11 126 16 93/67 (76) 94 Room Air I/O 11/08/17 11/08/17 11/08/17 11/09/17 11/09/17 11/09/17 07:00 15:00 23:00 07:00 15:00 23:00 Intake Total 624 ml 987 ml Balance 624 ml 987 ml Intake Oral 440 ml IV Total 624 ml 547 ml # Voids 3 # Bowel Movements 0 Result Diagram: 11/09/17 0228 11/09/17 0228 Objective Remarks SKIN: Warm and dry. CARDIOVASCULAR: Regular rate and rhythm. RESPIRATORY: No accessory muscle use. Clear to auscultation. Breath sounds equal bilaterally. GASTROINTESTINAL: Abdomen soft, non-tender, nondistended. Hepatic and splenic margins not palpable. MUSCULOSKELETAL: CKS to right extremity, pulses palpable Urinary Catheter: No Vascular Central Line Catheter: No A/P Problem List: (1) Closed right femoral fracture ICD Code: S72.91XA - Unspecified fracture of right femur, initial encounter for closed fracture Status: Acute (2) Acute respiratory failure with hypoxia ICD Code: J96.01 - Acute respiratory failure with hypoxia Assessment and Plan Ms. Carbone is a 67 y/o female from [place] with a history of generalized weakness requiring an electric scooter for mobilization, hypothyroidism, seizure, atrial fibrillation not on anticoagulation, hypertension, hyperlipidemia, GERD, osteoporosis, and osteoarthritis who fell from a bed and landed on her right knee with subsequent severe pain. She was found to have a mildly displaced spiral fracture of distal femur. Closed right femoral fracture -- orthopedics consulted; patient seen by Dr. Gonzalez -- morphine/norco prn pain -- NPO for surgical repair Acute respiratory failure with hypoxia CT PA reviewed and shows a tj tiny pulmonary embolus to the upper lobe right pulmonary artery. 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 Atrial fibrillation - continuous cardiac telemetry to monitor for arrhythmia - continue home metoprolol,dig and diltiazem - not on anticoagulation per patient - on baby ASA per med rec - holding asa for now Daily alcohol use of uncertain amount - will place on CIWA protocol - Thiamine, MVI IV -Withdraw precautions Seizures - continue home Keppra - seizure precautions DVT prophylaxis - chemoprophylaxis contraindicated at this time due to pending orthopedic surgery - SCDs/TEDs on unaffected extremity Problem Qualifiers (1) Closed right femoral fracture: Qualified Codes: S72.91XA - Unspecified fracture of right femur, initial encounter for closed fracture Kiersten Heaton November 09, 2017 11:49
[2017-11-09 12:00] VITALS: BP 114/75; PULSE 75; RESP 18; TEMP 98.5; O2SAT 100
[2017-11-09] MEDS ORDERED: ROCURONIUM INJ 50 MG/5 ML SYRINGE IV PUSH ONE (12:00)
[2017-11-09] MEDS ORDERED: GLYCOPYRROLATE 1 MG/5 ML SYRINGE IV PUSH ONE (12:00)
[2017-11-09] MEDS ORDERED: NEOSTIGMINE 5 MG/5 ML SYRINGE IV PUSH ONE (12:00)
[2017-11-09] MEDS ORDERED: LACTATED RINGER'S 1000 ML INJ 1,000 ML IV ONE (12:00)
[2017-11-09] MEDS ORDERED: ONDANSETRON HCL 4 MG/2 ML VIAL IV ONE (12:00)
[2017-11-09] MEDS ORDERED: LIDOCAINE HCL 1% PF 5 ML SYRINGE OTHER ONE (12:00)
[2017-11-09] MEDS ORDERED: DEXAMETHASONE SOD PHOS 4 MG/ML VIAL IV ONE (12:00)
[2017-11-09] MEDS ORDERED: ePHEDrine/NS 25 MG/5 ML SYRINGE IV ONE (12:00)
[2017-11-09] MEDS ORDERED: STERILE WATER FOR INJECTION 20 ML VIAL IV ONE (12:00)
[2017-11-09] MEDS ORDERED: PHENYLEPH/NS 1000 MCG/10 ML SYR IV ONE (12:00)
[2017-11-09] MEDS ORDERED: PROPOFOL 200 MG/20 ML AMP IV ONE (12:00)
[2017-11-09] MEDS ORDERED: VANCOMYCIN HCL 1000 MG VIAL ONE (12:43)
[2017-11-09] MEDS ORDERED: ceFAZolin INJ 1,000 MG VIAL ONE (12:43)
[2017-11-09] MEDS ORDERED: GENTAMICIN SULFATE 80 MG/2 ML VIAL ONE (12:43)
[2017-11-09] MEDS ORDERED: COMMODE 3-IN-11 MIS (14:04)
[2017-11-09] MEDS ORDERED: WALKER WHEELS/F1 MIS (14:04)
[2017-11-09] MEDS ORDERED: diphenhydrAMINE HCL 25 MG CAP PO PRN (14:45)
[2017-11-09] MEDS ORDERED: NALOXONE HCL 0.4 MG/ML AMP IV PUSH PRN (14:45)
[2017-11-09] MEDS ORDERED: Post-op Orders (for Pharmacy) XX ONE (14:45)
[2017-11-09] MEDS ORDERED: ONDANSETRON HCL 4 MG/2 ML VIAL IVP PRN (14:45)
[2017-11-09] MEDS ORDERED: MAGNESIUM HYDROXIDE SUSP 30 ML CUP PO PRN (14:45)
[2017-11-09] MEDS ORDERED: NURSING INFORMATION XX PRN (14:45)
[2017-11-09] MEDS ORDERED: ACETAMINOPHEN/HYDROcodone 325 MG/5 MG TAB PO PRN ×2 (14:45)
[2017-11-09] MEDS ORDERED: PHARMACY INFORMATION XX ONE (14:45)
--- NOTE | 2017-11-09 14:45 | RADRPT ---
EXAM DATE/TIME: 11/09/2017 14:32 [facility] COMPARISON: FEMUR RIGHT (AP & LAT/2VWS), November 08, 2017, 11:20. FLUOROSCOPY PORTABLE UP TO 1HR, November 09, 2017, 0:00 . INDICATIONS : ORIF right femur fracture. MEDICAL HISTORY : Unobtainable. SURGICAL HISTORY : Unobtainable. ENCOUNTER: Subsequent ACUITY: 2 days PAIN SCORE: Non-responsive. LOCATION: Right femur. FINDINGS: The exam demonstrates a medullary elliott placement within the right femur. The elliott is in excellent posit ion. There is no evidence of palpitations. CONCLUSION: 1. Intramedullary elliott in place on the right. Elliott appears in satisfactory position. 2. There is excellent alignment of the distal femur fracture. Nirav Birmingham MD on November 09, 2017 at 14:42 Board Certified Radiologist. This report was verified electronically.
--- NOTE | 2017-11-09 14:56 | PD.OP ---
cc: Andry Gonzalez MD Operative Report Date of Surgery: November 09, 2017 Preoperative Diagnosis: Right leg mildly displaced supracondylar femur fracture Postoperative Diagnosis: Same Procedure: Right leg intramedullary nail fixation of supracondylar femur fracture. Anesthesia: General Surgeon: Andry Gonzalez Hull Sorter(s): DARWIN Foy The surgical procedure was assisted by my Advanced Registered Nurse Practitioner. My RELAY MAN presence was necessary throughout this case for the manipulation and positioning of the surgical extremity. My RELAY MAN was assisting me throughout the duration of this procedure. The skill set of an Advance Registered Nurse Practitioner was medically necessary to complete this procedure. During the surgical case, the surgical device sales representative was working at the back table and the Advance Registered Nurse Practitioner was directly assisting me. Resident Surgeon: Estimated blood loss: 100 cc Implants: Synthes 13 x 360. The patient received intravenous vancomycin and Ancef. After the appropriate anesthesia was administered, the patient's leg was prepped and draped in the usual sterile fashion. We made a standard incision on the anterior aspect of the knee through skin and subcutaneous tissue, in line with the mid aspect of the patella tendon. We incised through the tendon in a longitudinal fashion in the mid aspect. We entered through the deep capsule. Hematoma was evacuated. The supracondylar femur fracture was anatomically reduced. We used a threaded guidewire placed into the appropriate position on the AP and lateral views along the physeal line. We then drilled distally protecting the patella with a sheath. We placed a ball-tipped guidewire past the fracture site up to the intertrochanteric region. We measured the appropriate length for the nail. We sequentially reamed up to 1 mm larger than the nail. We had good cortical chatter. Distally the nail was secured using the appropriate guide. We placed 3 screws from lateral to medial. These had fair to good purchase given her significant osteoporosis. Proximally the nail was visualized using perfect [place] technique. We placed a single screw with very good purchase. We took final fluoroscopic imaging showing good alignment. The wounds were all irrigated including the arthrotomy site distally removing hematoma and any small fragments of bone from the initial drilling. The patella tendon was closed in line using 0 Vicryl. Skin was closed using 2-0 Vicryl and miko. A canvas knee splint was applied. The postoperative plan is for nonweightbearing, the use of a Canvas knee splint , and DVT prophylaxis with Lovenox followed by aspirin. Andry Gonzalez MD November 09, 2017 14:56
[2017-11-09] MEDS ORDERED: NORC5TAB PO (14:59)
[2017-11-09] MEDS ORDERED: ENOX40IN SQ (14:59)
[2017-11-09] MEDS ORDERED: ASPI-183 PO (14:59)
[2017-11-09] MEDS ORDERED: DO NOT ADM ANY ANTICOAGULANT DRUGS PRN (15:06)
[2017-11-09] MEDS: DEXT 5%-NACL 0.45% 1000 ML INJ 1,000 ML IV SCH (15:15)
[2017-11-09 19:50] VITALS: BP 95/56; PULSE 66; RESP 18; TEMP 97.7; O2SAT 91
[2017-11-09 20:00] VITALS: PULSE 64
[2017-11-09] MEDS: SODIUM CHLORIDE 0.9% FLUSH 10 ML FLUSH IV FLUSH SCH (21:00)
[2017-11-09] MEDS: MELATONIN 5 MG TAB PO SCH (21:10)
[2017-11-09] MEDS: MIRTAZAPINE 15 MG TAB PO SCH (21:10)
[2017-11-09] MEDS: DOCUSATE SODIUM 50 MG/SENNA 8.6 MG TAB PO SCH (21:12)
[2017-11-10] VITALS (7 sets, daily range): BP systolic 94–107; BP diastolic 55–68; PULSE 59–73; RESP 17–20; TEMP 97.6–98.2; O2SAT 94–98
[2017-11-10] MEDS: DEXT 5%-NACL 0.45% 1000 ML INJ 1,000 ML IV SCH (01:04)
[2017-11-10] MEDS: THIAMINE INJ 100 MG in SODIUM CHLORIDE 0.9% INJ 100 ML IV SCH (05:37)
[2017-11-10] MEDS: LEVOTHYROXINE SODIUM 75 MCG TAB PO SCH (05:37)
[2017-11-10] MEDS: DILTIAZEM HCL 60 MG TAB PO SCH ×2 (05:38→21:09)
[2017-11-10] MEDS: MULTIVITAMIN INJ 10 ML, FOLIC ACID INJ 1 MG in SODIUM CHLORID 0.9% 500 ML INJ 500 ML IV SCH (06:09)
[2017-11-10] MEDS ORDERED: APIX5TAB PO (08:57)
[2017-11-10] MEDS: SODIUM CHLORIDE 0.9% FLUSH 10 ML FLUSH IV FLUSH SCH ×2 (09:00→21:00)
[2017-11-10] MEDS: METOPROLOL TARTRATE 25 MG TAB PO SCH ×2 (09:00→21:27)
[2017-11-10] MEDS: DIGOXIN 0.125 MG TAB PO SCH (09:56)
[2017-11-10] MEDS: PANTOPRAZOLE SOD 40 MG DELAYED RELEASE TAB PO SCH (09:57)
[2017-11-10] MEDS: ATORVASTATIN 40 MG TAB PO SCH (09:57)
[2017-11-10] MEDS: DOCUSATE SODIUM 50 MG/SENNA 8.6 MG TAB PO SCH ×2 (09:57→21:08)
[2017-11-10] MEDS: buPROPion HCL 100 MG TAB PO SCH ×2 (09:57→21:08)
[2017-11-10] MEDS: levETIRAcetam 500 MG TAB PO SCH ×2 (09:57→21:08)
[2017-11-10] MEDS: MULTIVITAMINS/MINERALS THERAPEUTIC TAB PO SCH (09:57)
--- NOTE | 2017-11-10 10:47 | HHI.PR ---
Subjective Remarks Follow up femur fracture. Patient is slightly confused since surgery. is at bedside to discuss treatment plan. They are from out of town and is concerned when she can fly. Discussed possible CIR option with him and he is open to it. Patient denies any surgical pain, just complains of stiffness. No chest pain or sob noted. Objective Vitals Vital Signs Date Time Temp Pulse Resp B/P (MAP) Pulse Ox O2 Delivery O2 Flow Rate FiO2 11/10/17 07:52 98.1 65 17 95/61 (72) 95 11/10/17 04:00 97.6 72 18 94/55 (68) 97 11/10/17 00:00 59 11/10/17 00:00 97.8 60 18 107/68 (81) 98 11/09/17 20:00 64 11/09/17 19:50 97.7 66 18 95/56 (69) 91 11/09/17 17:15 Nasal Cannula 2.00 11/09/17 15:45 97.6 67 14 115/65 (82) 98 Nasal Cannula 3 11/09/17 15:30 68 14 115/65 (82) 97 Nasal Cannula 3 11/09/17 15:15 67 14 113/69 (84) 96 Nasal Cannula 3 11/09/17 15:06 97.6 78 14 114/68 (83) 94 Nasal Cannula 3 11/09/17 12:00 98.5 75 18 114/75 (88) 100 I/O 11/09/17 11/09/17 11/09/17 11/10/17 11/10/17 11/10/17 07:00 15:00 23:00 07:00 15:00 23:00 Intake Total 987 ml 1000 ml 1100 ml 120 ml Output Total 330 ml 300 ml Balance 987 ml 670 ml 1100 ml -180 ml Intake Oral 440 ml 120 ml IV Total 547 ml 1100 ml Other 1000 ml Output Urine Total 230 ml 300 ml Estimated Blood Loss 100 ml # Voids 3 2 # Bowel Movements 0 0 0 Result Diagram: 11/09/1722711/09/17227 Objective Remarks SKIN: Warm and dry. CARDIOVASCULAR: Regular rate and rhythm. RESPIRATORY: No accessory muscle use. Clear to auscultation. Breath sounds equal bilaterally. GASTROINTESTINAL: Abdomen soft, non-tender, nondistended. Hepatic and splenic margins not palpable. MUSCULOSKELETAL: CKS to right extremity, pulses palpable Neuro: Slightly confused. Urinary Catheter: Yes Assessment to: Remove Vascular Central Line Catheter: No A/P Problem List: (1) Closed right femoral fracture ICD Code: S72.91XA - Unspecified fracture of right femur, initial encounter for closed fracture Status: Acute (2) Acute respiratory failure with hypoxia ICD Code: J96.01 - Acute respiratory failure with hypoxia Assessment and Plan Ms. Carbone is a 67 y/o female from [place] with a history of generalized weakness requiring an electric scooter for mobilization, hypothyroidism, seizure, atrial fibrillation not on anticoagulation, hypertension, hyperlipidemia, GERD, osteoporosis, and osteoarthritis who fell from a bed and landed on her right knee with subsequent severe pain. She was found to have a mildly displaced spiral fracture of distal femur. Closed right femoral fracture - orthopedics consulted; patient seen by Dr. Gonzalez and is following - morphine/norco prn pain - PT eval pending Acute respiratory failure with hypoxia CT PA reviewed and shows a tj tiny pulmonary embolus to the upper lobe right pulmonary artery. - ABG with oxygen saturation 84 % pO2 52 on 2 liters via NC -Cont o2 -patient not in respiratory distress at any time -11/10 placed patient on eliquis 5mg BID for 90 days, instructed patients about follow up with PCP when they return to [place] Atrial fibrillation - continuous cardiac telemetry to monitor for arrhythmia - continue home metoprolol,dig and diltiazem -Due to PE patient may benefit from life long anticoagulation Daily alcohol use of uncertain amount - will place on CIWA protocol - Thiamine, MVI IV -Withdraw precautions Seizures - continue home Keppra - seizure precautions Hypotension, likely due to anaesthesia -Cont to monitor -IVF for hydration until patient eats and drinks well -Trendelenburg as needed DVT prophylaxis: Eliquis - SCDs/TEDs on unaffected extremity Discharge Planning SNF vs CIR possible in the next 2 days, patient is from out of town so family is on a time constraint Problem Qualifiers (1) Closed right femoral fracture: Qualified Codes: S72.91XA - Unspecified fracture of right femur, initial encounter for closed fracture Kiersten Heaton November 10, 2017 10:47
--- NOTE | 2017-11-10 13:15 | PD.ORT.PN ---
Subjective Post Op Day #: 1 Subjective Remarks Patient is resting comfortably in bed in NAD. Patient reports minimal pain to the RLE. Patient denies CP or SOB Objective Vitals Vital Signs Date Time Temp Pulse Resp B/P (MAP) Pulse Ox O2 Delivery O2 Flow Rate FiO2 11/10/17 11:53 98.2 69 17 97/57 (70) 95 11/10/17 11:36 94 21 11/10/17 07:52 98.1 65 17 95/61 (72) 95 11/10/17 04:00 97.6 72 18 94/55 (68) 97 11/10/17 00:00 59 11/10/17 00:00 97.8 60 18 107/68 (81) 98 11/09/17 20:00 64 11/09/17 19:50 97.7 66 18 95/56 (69) 91 11/09/17 17:15 Nasal Cannula 2.00 11/09/17 15:45 97.6 67 14 115/65 (82) 98 Nasal Cannula 3 11/09/17 15:30 68 14 115/65 (82) 97 Nasal Cannula 3 11/09/17 15:15 67 14 113/69 (84) 96 Nasal Cannula 3 11/09/17 15:06 97.6 78 14 114/68 (83) 94 Nasal Cannula 3 I/O 11/09/17 11/09/17 11/09/17 11/10/17 11/10/17 11/10/17 07:00 15:00 23:00 07:00 15:00 23:00 Intake Total 987 ml 1000 ml 1100 ml 120 ml Output Total 330 ml 300 ml Balance 987 ml 670 ml 1100 ml -180 ml Intake Oral 440 ml 120 ml IV Total 547 ml 1100 ml Other 1000 ml Output Urine Total 230 ml 300 ml Estimated Blood Loss 100 ml # Voids 3 2 # Bowel Movements 0 0 0 Result Diagram: 11/09/1722711/09/17227 Procedures Right IMN of supracondular femur fracture Pulmonary Embolism Objective Remarks The patient's dressing is C/D/I. EHL/TA/G intact. 2+ pedal pulse. Calf is soft and nontender. +SILT distally. Assessment & Plan Ortho Post Op Day #: 1 Problem List: Assessment and Plan POD #1: Right IMN of supracondular femur fracture Pulmonary Embolism 1. NWB RLE. Chronic nonambulator 2. Eliquis for DVT prophylaxis and management on recent diagnosis of PE. Scripts changed in chart. 3. Ice to the right femur PRN 4. Stable for discharge to SNF when medically cleared. Patient resides outside of the [facility] in [place]. 5. F/U in the office with Dr. Gonzalez or JESSICA Rothman as previously scheduled. Nirav Carranza November 10, 2017 13:15
[2017-11-10] MEDS: APIXABAN 5 MG TABLET PO SCH ×2 (13:39→21:09)
[2017-11-10] MEDS ORDERED: ENOXAPARIN SODIUM 40 MG/0.4 ML SYRINGE SQ SCH (15:00)
[2017-11-10] MEDS ORDERED: LACTATED RINGER'S 1000 ML INJ 1,000 ML IV ONE (15:30)
[2017-11-10 17:39] LABS: AUTOMATED NEUTROPHIL # 10.9 TH/MM3 (1.8-7.7); HEMATOCRIT 28.8 % (35.0-46.0); HEMOGLOBIN 9.6 GM/DL (11.6-15.3); LYMPH % 9.4 % (9.0-44.0); LYMPHOCYTE # 1.2 TH/MM3 (1.0-4.8); MEAN CELL VOLUME 102.5 FL (80.0-100.0); MEAN CORPUSCULAR HEMOGLOBIN 34.1 PG (27.0-34.0); MEAN CORPUSCULAR HGB CONC 33.3 % (32.0-36.0); MEAN PLATELET VOLUME 9.9 FL (7.0-11.0); MONO % 4.3 % (0.0-8.0); MONOCYTE # 0.5 TH/MM3 (0-0.9); NEUT % 86.3 % (16.0-70.0); PLATELET COUNT 168 TH/MM3 (150-450); RED BLOOD COUNT 2.81 MIL/MM3 (4.00-5.30); RED CELL DISTRIBUTION WIDTH 16.1 % (11.6-17.2); WHITE BLOOD COUNT 12.6 TH/MM3 (4.0-11.0)
[2017-11-10 17:58] LABS: BICARBONATE 21.9 MEQ/L (21.0-32.0); CALCIUM 7.7 MG/DL (8.5-10.1); CREATININE 0.72 MG/DL (0.50-1.00)
[2017-11-10] MEDS: MELATONIN 5 MG TAB PO SCH (21:08)
[2017-11-10] MEDS: MIRTAZAPINE 15 MG TAB PO SCH (21:08)
[2017-11-11] VITALS (7 sets, daily range): BP systolic 80–102; BP diastolic 52–60; PULSE 70–106; RESP 18–20; TEMP 97.2–98; O2SAT 92–95
[2017-11-11] MEDS: THIAMINE INJ 100 MG in SODIUM CHLORIDE 0.9% INJ 100 ML IV SCH (05:03)
[2017-11-11] MEDS: DILTIAZEM HCL 60 MG TAB PO SCH ×3 (05:03→21:22)
[2017-11-11] MEDS: MULTIVITAMIN INJ 10 ML, FOLIC ACID INJ 1 MG in SODIUM CHLORID 0.9% 500 ML INJ 500 ML IV SCH (05:03)
[2017-11-11] MEDS: LEVOTHYROXINE SODIUM 75 MCG TAB PO SCH (05:03)
[2017-11-11 06:56] LABS: AUTOMATED NEUTROPHIL # 8.1 TH/MM3 (1.8-7.7); BASOPHIL % 0.1 % (0.0-2.0); EOSINOPHIL % 0.2 % (0.0-4.0); HEMATOCRIT 28.5 % (35.0-46.0); HEMOGLOBIN 9.7 GM/DL (11.6-15.3); LYMPH % 18.5 % (9.0-44.0); MEAN CELL VOLUME 101.6 FL (80.0-100.0); MEAN CORPUSCULAR HEMOGLOBIN 34.6 PG (27.0-34.0); MEAN PLATELET VOLUME 9.8 FL (7.0-11.0); MONO % 5.4 % (0.0-8.0); MONOCYTE # 0.6 TH/MM3 (0-0.9); NEUT % 75.8 % (16.0-70.0); PLATELET COUNT 174 TH/MM3 (150-450); RED BLOOD COUNT 2.81 MIL/MM3 (4.00-5.30); WHITE BLOOD COUNT 10.7 TH/MM3 (4.0-11.0)
[2017-11-11 07:34] LABS: BICARBONATE 24.2 MEQ/L (21.0-32.0); CALCIUM 7.4 MG/DL (8.5-10.1); CREATININE 0.68 MG/DL (0.50-1.00)
[2017-11-11 07:47] LABS: TOTAL PROTEIN 4.3 GM/DL (6.4-8.2)
[2017-11-11] MEDS: METOPROLOL TARTRATE 25 MG TAB PO SCH (09:00)
[2017-11-11] MEDS: SODIUM CHLORIDE 0.9% FLUSH 10 ML FLUSH IV FLUSH SCH ×2 (09:00→21:00)
[2017-11-11] MEDS: levETIRAcetam 500 MG TAB PO SCH ×2 (09:35→21:22)
[2017-11-11] MEDS: PANTOPRAZOLE SOD 40 MG DELAYED RELEASE TAB PO SCH (09:35)
[2017-11-11] MEDS: DOCUSATE SODIUM 50 MG/SENNA 8.6 MG TAB PO SCH ×2 (09:35→21:21)
[2017-11-11] MEDS: MULTIVITAMINS/MINERALS THERAPEUTIC TAB PO SCH (09:36)
[2017-11-11] MEDS: DIGOXIN 0.125 MG TAB PO SCH (09:36)
[2017-11-11] MEDS: ATORVASTATIN 40 MG TAB PO SCH (09:36)
[2017-11-11] MEDS: APIXABAN 5 MG TABLET PO SCH ×2 (09:36→21:21)
[2017-11-11] MEDS: buPROPion HCL 100 MG TAB PO SCH (09:37)
--- NOTE | 2017-11-11 16:56 | HHI.PR ---
Subjective Remarks Denies cp/sob. C/o pain on RLE Denies diarrhea, nausea, vomiting or abdominal pain. Objective Vitals Vital Signs Date Time Temp Pulse Resp B/P (MAP) Pulse Ox O2 Delivery O2 Flow Rate FiO2 11/11/17 15:52 97.7 80 19 91/56 (68) 95 11/11/17 08:34 92 11/11/17 07:43 97.3 70 19 94/53 (67) 92 11/11/17 00:00 72 11/11/17 00:00 97.2 73 20 102/60 (74) 94 11/10/17 20:29 95 21 11/10/17 20:00 97.8 73 20 104/58 (73) 94 11/10/17 20:00 72 I/O 11/10/17 11/10/17 11/10/17 11/11/17 11/11/17 11/11/17 07:00 15:00 23:00 07:00 15:00 23:00 Intake Total 120 ml 800 ml 650 ml Output Total 300 ml 450 ml 500 ml Balance -180 ml 350 ml -500 ml 650 ml Intake Oral 120 ml 800 ml 650 ml Output Urine Total 300 ml 450 ml 500 ml # Voids 4 # Bowel Movements 0 0 0 2 Result Diagram: 11/11/17 0610 11/11/17 0610 Imaging Last Impressions Femur X-Ray 11/09/17 0000 Signed Impressions: Service Date/Time: Thursday, November 09, 2017 14:32 - CONCLUSION: 1. Intramedullary elliott in place on the right. Elliott appears in satisfactory position. 2. There is excellent alignment of the distal femur fracture. Nirav Birmingham MD CT Angiography 11/09/17 0000 Signed Impressions: Service Date/Time: Thursday, November 09, 2017 04:14 - CONCLUSION: 1. There is a very tiny, isolated pulmonary embolus to the upper lobe right pulmonary artery. Pulmonary artery is otherwise clear. 2. Patchy pleural-parenchymal and atelectasis/scarring in both hemithoraces, left than right. There is also small bilateral pleural effusions with concomitant atelectatic changes in the bases. 3. Dense atherosclerotic calcification of the coronary arteries. 4. Diffuse hepatic fatty infiltration Juno Conway MD Chest X-Ray 11/08/17 1052 Signed Impressions: Service Date/Time: Wednesday, November 08, 2017 11:20 - CONCLUSION: No acute cardiopulmonary abnormality is identified. Zaire Sam MD Knee X-Ray 11/08/17 0000 Signed Impressions: Service Date/Time: Wednesday, November 08, 2017 10:03 - CONCLUSION: Spiral and mildly displaced fracture of the distal femur. Js Hunter MD Objective Remarks SKIN: Warm and dry. CARDIOVASCULAR: Regular rate and rhythm. RESPIRATORY: No accessory muscle use. Clear to auscultation. Breath sounds equal bilaterally. GASTROINTESTINAL: Abdomen soft, non-tender, nondistended. Hepatic and splenic margins not palpable. MUSCULOSKELETAL: CKS to right extremity, pulses palpable Procedures Right leg intramedullary nail fixation of supracondylar femur fracture. A/P Problem List: (1) Closed right femoral fracture ICD Code: S72.91XA - Unspecified fracture of right femur, initial encounter for closed fracture Status: Acute (2) Acute respiratory failure with hypoxia ICD Code: J96.01 - Acute respiratory failure with hypoxia Assessment and Plan Ms. Carbone is a 67 y/o female from [place] with a history of generalized weakness requiring an electric scooter for mobilization, hypothyroidism, seizure, atrial fibrillation not on anticoagulation, hypertension, hyperlipidemia, GERD, osteoporosis, and osteoarthritis who fell from a bed and landed on her right knee with subsequent severe pain. She was found to have a mildly displaced spiral fracture of distal femur. Closed right femoral fracture - orthopedics consulted; patient seen by Dr. Gonzalez and is following - morphine/norco prn pain - PT eval pending Acute respiratory failure with hypoxia CT PA reviewed and shows a tj tiny pulmonary embolus to the upper lobe right pulmonary artery. - ABG with oxygen saturation 84 % pO2 52 on 2 liters via NC -Cont o2 -patient not in respiratory distress at any time -11/10 placed patient on eliquis 5mg BID for 90 days, instructed patients about follow up with PCP when they return to [place] Atrial fibrillation - continuous cardiac telemetry to monitor for arrhythmia -Due to PE patient may benefit from life long anticoagulation -11/11 persistent chronic atrial fibrillation. Telemetry shows atrial fibrillation which is rate controlled. Continue diltiazem and digoxin. Hold beta-paty given concurrent hypotension. Daily alcohol use of uncertain amount - will place on CIWA protocol - Thiamine, MVI IV -Withdraw precautions -11/11 no evidence of alcohol withdrawal. Seizures - continue home Keppra - seizure precautions - 11/11 no evidence of seizures. Hypotension -Cont to monitor -IVF for hydration until patient eats and drinks well -Trendelenburg as needed 11/11 possibly due to anesthesia. However the patient still hypotensive, could be secondary to pain medications. Hold metoprolol, will add holding parameters to diltiazem. Will give 500 mils normal saline IV bolus 1. Pulmonary emboli -CT pulmonary angiogram showed a very tiny isolated pulmonary embolus to the upper lobe right of the pulmonary artery. It also showed a patchy pleural parenchymal atelectasis versus scarring in both endorses. Small bilateral pleural effusions with concomitant atelectatic changes in the bases. -Continue supplemental oxygen as needed. - Incentive spirometry. - Patient is on Apixaban 5 mg PO BID. DVT prophylaxis: Eliquis - SCDs/TEDs on unaffected extremity Problem Qualifiers (1) Closed right femoral fracture: Qualified Codes: S72.91XA - Unspecified fracture of right femur, initial encounter for closed fracture Erik Juarez MD November 11, 2017 16:56
[2017-11-11] MEDS ORDERED: SODIUM CHLORID 0.9% 500 ML INJ 500 ML IV ONE ×2 (17:00→20:30)
--- NOTE | 2017-11-11 17:23 | PD.ORT.PN ---
Subjective Post Op Day #: 2 Subjective Remarks Patient is resting comfortably in bed in NAD. Patient reports mild pain to the RLE. Patient denies CP or SOB. Patient c/o right calf pain. Objective Vitals Vital Signs Date Time Temp Pulse Resp B/P (MAP) Pulse Ox O2 Delivery O2 Flow Rate FiO2 11/11/17 15:52 97.7 80 19 91/56 (68) 95 11/11/17 08:34 92 11/11/17 07:43 97.3 70 19 94/53 (67) 92 11/11/17 00:00 72 11/11/17 00:00 97.2 73 20 102/60 (74) 94 11/10/17 20:29 95 21 11/10/17 20:00 97.8 73 20 104/58 (73) 94 11/10/17 20:00 72 I/O 11/10/17 11/10/17 11/10/17 11/11/17 11/11/17 11/11/17 07:00 15:00 23:00 07:00 15:00 23:00 Intake Total 120 ml 800 ml 650 ml Output Total 300 ml 450 ml 500 ml Balance -180 ml 350 ml -500 ml 650 ml Intake Oral 120 ml 800 ml 650 ml Output Urine Total 300 ml 450 ml 500 ml # Voids 4 # Bowel Movements 0 0 0 2 Result Diagram: 11/11/17 0610 11/11/17 0610 Procedures Right IMN of supracondular femur fracture Pulmonary Embolism Objective Remarks The patient's dressing is C/D/I. EHL/TA/G intact. 2+ pedal pulse. Calf is soft with mild tenderness to palpation. +SILT distally. Assessment & Plan Ortho Post Op Day #: 2 Problem List: Assessment and Plan POD #2: Right IMN of supracondular femur fracture Pulmonary Embolism 1. NWB RLE. Chronic nonambulator 2. Eliquis for DVT prophylaxis and management on recent diagnosis of PE. Scripts changed in chart. 3. Ice to the right femur PRN 4. Stable for discharge to SNF when medically cleared. Patient resides outside of the [facility] in [place]. 5. F/U in the office with Dr. Gonzalez or JESSICA Rothman as previously scheduled. 6. Stat US to BLEs. Will follow results. Nirav Carranza November 11, 2017 17:23
[2017-11-11] MEDS: KETOROLAC TROMETHAMINE 10 MG TAB PO PRN (18:47)
--- NOTE | 2017-11-11 20:00 | RADRPT ---
EXAM DATE/TIME: 11/11/2017 19:06 [facility] COMPARISON: No previous studies available for comparison. INDICATIONS : Right leg pain s/p femur fracture 2 days ago. MEDICAL HISTORY : Hypertension. Hypercholesterolemia. Renal calculi. Seizure. Hypothyroidism. SURGICAL HISTORY : Gastric Bypass. Right Femur Repair. Right Ankle repair. Left hip replacement. ENCOUNTER: Initial ACUITY: 2 day PAIN SCORE: 7/10 LOCATION: Bilateral legs. TECHNIQUE: Venous ultrasound of the left and right leg was performed from the inguinal ligament to the proximal calf. Real-time, color Doppler and spectral tracing, compression and augmentation techniques were us ed. FINDINGS: RIGHT LEG: The examination is positive for nonocclusive deep venous thrombosis in the right common femoral vein just above the bifurcation. Remainder of the right lower extremity veins are patent. LEFT LEG: There is normal compressibility of the deep venous system from the inguinal region to the proximal ca lf. No echogenic clot is seen in the lumen of the common femoral, femoral, popliteal, and posterior tibial veins. There is a normal response of the venous system to proximal and distal augmentation an d respiration. CONCLUSION: 1. Positive for nonocclusive deep venous thrombosis right common femoral vein. Negative left lower ex tremity DVT study. Dawson Lakhani MD on November 11, 2017 at 19:57 Board Certified Radiologist. This report was verified electronically.
[2017-11-11] MEDS: MELATONIN 5 MG TAB PO SCH (21:21)
[2017-11-11] MEDS: ACETAMINOPHEN 325 MG TAB PO PRN (21:21)
[2017-11-11] MEDS: MIRTAZAPINE 15 MG TAB PO SCH (21:21)
[2017-11-11] MEDS: SODIUM CHLOR 0.9% 1000 ML INJ 1,000 ML IV SCH (21:55)
[2017-11-12] VITALS (11 sets, daily range): BP systolic 85–104; BP diastolic 53–63; PULSE 75–103; RESP 17–19; TEMP 97.4–98.8; O2SAT 88–97
[2017-11-12] MEDS: SODIUM CHLOR 0.9% 1000 ML INJ 1,000 ML IV SCH ×3 (00:06→21:55)
[2017-11-12] MEDS: KETOROLAC TROMETHAMINE 10 MG TAB PO PRN ×3 (01:35→19:24)
[2017-11-12] MEDS: DILTIAZEM HCL 60 MG TAB PO SCH ×3 (05:29→21:55)
[2017-11-12] MEDS: LEVOTHYROXINE SODIUM 75 MCG TAB PO SCH (05:29)
[2017-11-12] MEDS: ACETAMINOPHEN 325 MG TAB PO PRN (05:30)
[2017-11-12] MEDS: MULTIVITAMIN INJ 10 ML, FOLIC ACID INJ 1 MG in SODIUM CHLORID 0.9% 500 ML INJ 500 ML IV SCH (06:20)
--- NOTE | 2017-11-12 07:03 | PD.ORT.PN ---
Subjective Subjective Remarks Resting comfortably with no new complaints. Objective Vitals Vital Signs Date Time Temp Pulse Resp B/P (MAP) Pulse Ox O2 Delivery O2 Flow Rate FiO2 11/12/17 04:00 97.4 79 19 104/61 (75) 97 11/12/17 00:02 75 11/12/17 00:00 98.8 77 19 99/58 (72) 93 11/11/17 21:20 93 Nasal Cannula 2.00 11/11/17 21:00 81 80/52 (61) 11/11/17 20:30 106 11/11/17 20:00 98.0 80 18 80/52 (61) 93 11/11/17 15:52 97.7 80 19 91/56 (68) 95 11/11/17 08:34 92 11/11/17 07:43 97.3 70 19 94/53 (67) 92 I/O 11/11/17 11/11/17 11/11/17 11/12/17 11/12/17 11/12/17 07:00 15:00 23:00 07:00 15:00 23:00 Intake Total 650 ml 700 ml Output Total 500 ml Balance -500 ml 650 ml 700 ml Intake Oral 650 ml 700 ml Output Urine Total 500 ml # Voids 4 3 # Bowel Movements 0 2 Result Diagram: 11/11/17 0610 11/11/17 0610 Procedures Right IMN of supracondular femur fracture Pulmonary Embolism Objective Remarks The patient's dressing is C/D/I. EHL/TA/G intact. 2+ pedal pulse. Calf is soft with mild tenderness to palpation. +SILT distally. Assessment & Plan Assessment and Plan POD #3: Right IMN of supracondular femur fracture Pulmonary Embolism 1. NWB RLE. Chronic nonambulator 2. Eliquis for DVT prophylaxis and management on recent diagnosis of PE. Scripts changed in chart. 3. Ice to the right femur PRN 4. Stable for discharge to SNF when medically cleared. Patient resides outside of the [facility] in [place]. 5. F/U in the office with Dr. Gonzalez or JESSICA Rothman as previously scheduled. 6. Stat US to BLEs. Will follow results. Evaristo Elaine Jr. November 12, 2017 07:03
[2017-11-12] MEDS: PANTOPRAZOLE SOD 40 MG DELAYED RELEASE TAB PO SCH (09:08)
[2017-11-12] MEDS: ATORVASTATIN 40 MG TAB PO SCH (09:08)
[2017-11-12] MEDS: MULTIVITAMINS/MINERALS THERAPEUTIC TAB PO SCH (09:08)
[2017-11-12] MEDS: DIGOXIN 0.125 MG TAB PO SCH (09:09)
[2017-11-12] MEDS: APIXABAN 5 MG TABLET PO SCH ×2 (09:09→21:54)
[2017-11-12] MEDS: levETIRAcetam 500 MG TAB PO SCH ×2 (09:09→21:54)
[2017-11-12] MEDS: DOCUSATE SODIUM 50 MG/SENNA 8.6 MG TAB PO SCH ×2 (09:09→21:54)
[2017-11-12] MEDS: SODIUM CHLORIDE 0.9% FLUSH 10 ML FLUSH IV FLUSH SCH ×2 (09:09→21:55)
[2017-11-12] MEDS: THIAMINE HCL 100 MG TAB PO SCH (09:09)
--- NOTE | 2017-11-12 13:23 | HHI.PR ---
Subjective Remarks Patient's oxygen saturation dropping down into the low 80s. Patient denies chest pain or shortness of breath. Denies fevers or chills. As per review of records the patient was given 1.5 L bolus of normal saline overnight because of hypotension. Objective Vitals Vital Signs Date Time Temp Pulse Resp B/P (MAP) Pulse Ox O2 Delivery O2 Flow Rate FiO2 11/12/17 13:06 91 21 11/12/17 12:19 98.2 90 17 90/57 (68) 88 11/12/17 08:10 97.9 83 18 101/63 (76) 97 11/12/17 04:04 76 11/12/17 04:00 97.4 79 19 104/61 (75) 97 11/12/17 00:02 75 11/12/17 00:00 98.8 77 19 99/58 (72) 93 11/11/17 21:20 93 Nasal Cannula 2.00 11/11/17 21:00 81 80/52 (61) 11/11/17 20:30 106 11/11/17 20:00 98.0 80 18 80/52 (61) 93 11/11/17 15:52 97.7 80 19 91/56 (68) 95 I/O 11/11/17 11/11/17 11/11/17 11/12/17 11/12/17 11/12/17 07:00 15:00 23:00 07:00 15:00 23:00 Intake Total 650 ml 100 ml 1800 ml Output Total 500 ml Balance -500 ml 650 ml 100 ml 1800 ml Intake Oral 650 ml 700 ml IV Total 100 ml 1100 ml Output Urine Total 500 ml # Voids 4 3 # Bowel Movements 0 2 Result Diagram: 11/11/17 0610 11/11/17 0610 Imaging Last Impressions Lower Extremity Ultrasound 11/11/17 0000 Signed Impressions: Service Date/Time: Saturday, November 11, 2017 19:06 - CONCLUSION: 1. Positive for nonocclusive deep venous thrombosis right common femoral vein. Negative left lower extremity DVT study. Dawson Lakhani MD Femur X-Ray 11/09/17 0000 Signed Impressions: Service Date/Time: Thursday, November 09, 2017 14:32 - CONCLUSION: 1. Intramedullary elliott in place on the right. Elliott appears in satisfactory position. 2. There is excellent alignment of the distal femur fracture. Nirav Birmingham MD CT Angiography 11/09/17 0000 Signed Impressions: Service Date/Time: Thursday, November 09, 2017 04:14 - CONCLUSION: 1. There is a very tiny, isolated pulmonary embolus to the upper lobe right pulmonary artery. Pulmonary artery is otherwise clear. 2. Patchy pleural-parenchymal and atelectasis/scarring in both hemithoraces, left than right. There is also small bilateral pleural effusions with concomitant atelectatic changes in the bases. 3. Dense atherosclerotic calcification of the coronary arteries. 4. Diffuse hepatic fatty infiltration Juno Conway MD Chest X-Ray 11/08/17 1052 Signed Impressions: Service Date/Time: Wednesday, November 08, 2017 11:20 - CONCLUSION: No acute cardiopulmonary abnormality is identified. Zaire Sam MD Knee X-Ray 11/08/17 0000 Signed Impressions: Service Date/Time: Wednesday, November 08, 2017 10:03 - CONCLUSION: Spiral and mildly displaced fracture of the distal femur. Js Hunter MD Objective Remarks SKIN: Warm and dry. CARDIOVASCULAR: Regular rate and rhythm. RESPIRATORY: No accessory muscle use. Clear to auscultation. Breath sounds equal bilaterally. GASTROINTESTINAL: Abdomen soft, non-tender, nondistended. Hepatic and splenic margins not palpable. MUSCULOSKELETAL: CKS to right extremity, pulses palpable Procedures Right leg intramedullary nail fixation of supracondylar femur fracture. A/P Problem List: (1) Closed right femoral fracture ICD Code: S72.91XA - Unspecified fracture of right femur, initial encounter for closed fracture Status: Acute (2) Acute respiratory failure with hypoxia ICD Code: J96.01 - Acute respiratory failure with hypoxia Status: Acute (3) Pulmonary embolism ICD Code: I26.99 - Other pulmonary embolism without acute cor pulmonale Status: Acute (4) DVT (deep venous thrombosis) ICD Code: I82.409 - Acute embolism and thrombosis of unspecified deep veins of unspecified lower extremity Status: Acute (5) Hypotension ICD Code: I95.9 - Hypotension, unspecified Status: Acute (6) HTN (hypertension) ICD Code: I10 - Essential (primary) hypertension Status: Chronic (7) HLD (hyperlipidemia) ICD Code: E78.5 - Hyperlipidemia, unspecified Status: Chronic (8) Chronic a-fib ICD Code: I48.2 - Chronic atrial fibrillation Status: Chronic (9) Postoperative anemia due to acute blood loss ICD Code: D62 - Acute posthemorrhagic anemia Status: Acute (10) Alcohol abuse ICD Code: F10.10 - Alcohol abuse, uncomplicated Status: Chronic Assessment and Plan Ms. Carbone is a 67 y/o female from [place] with a history of generalized weakness requiring an electric scooter for mobilization, hypothyroidism, seizure, atrial fibrillation not on anticoagulation, hypertension, hyperlipidemia, GERD, osteoporosis, and osteoarthritis who fell from a bed and landed on her right knee with subsequent severe pain. She was found to have a mildly displaced spiral fracture of distal femur. Closed right femoral fracture - orthopedics consulted; patient seen by Dr. Gonzalez and is following - morphine/norco prn pain - PT recommended PT at rehab. Acute respiratory failure with hypoxia Pulmonary embolus. CT PA reviewed and shows a tj tiny pulmonary embolus to the upper lobe right pulmonary artery. - ABG with oxygen saturation 84 % pO2 52 on 2 liters via NC -Cont o2 -patient not in respiratory distress at any time -11/10 placed patient on eliquis 5mg BID for 90 days, instructed patients about follow up with PCP when they return to [place]. - 11/11 patient satting well on 2 L nasal cannula earlier today. However now patient's oxygen is dropping down to the low 80s on room air. Continue supplemental oxygen to keep oxygen saturation more than 92%, stat chest x-ray, suspect patient has fluid overload since the patient is getting of the IV fluid boluses and was started on IV fluids overnight. Will give Lasix 40 mg IV once. Discontinue IV fluids. Case discussed with RN. Atrial fibrillation - continuous cardiac telemetry to monitor for arrhythmia -Due to PE patient may benefit from life long anticoagulation -11/11 persistent chronic atrial fibrillation. Telemetry shows atrial fibrillation which is rate controlled. Continue diltiazem and digoxin. Hold beta-paty given concurrent hypotension. - 11/12 continue to hold beta-paty, continue diltiazem with holding parameters. Daily alcohol use of uncertain amount - will place on CIWA protocol - Thiamine, MVI IV -Withdraw precautions -11/11 no evidence of alcohol withdrawal. Seizures - continue home Keppra - seizure precautions - 11/11 no evidence of seizures. Hypotension -Cont to monitor -IVF for hydration until patient eats and drinks well -Trendelenburg as needed 5/ possibly due to anesthesia. However the patient still hypotensive, could be secondary to pain medications. Hold metoprolol, will add holding parameters to diltiazem. Will give 500 mils normal saline IV bolus 1. 5/5 start the patient on Midodrin for continued hypotension. Continue to hold beta-paty. Obtained blood pressure with correct cuff size and 120/84. Pulmonary emboli -CT pulmonary angiogram showed a very tiny isolated pulmonary embolus to the upper lobe right of the pulmonary artery. It also showed a patchy pleural parenchymal atelectasis versus scarring in both endorses. Small bilateral pleural effusions with concomitant atelectatic changes in the bases. -Continue supplemental oxygen as needed. - Incentive spirometry. - Patient is on Apixaban 5 mg PO BID. DVT prophylaxis: Eliquis - SCDs/TEDs on unaffected extremity Discharge Planning Continue to monitor in the medical floor secondary to worsening hypoxemia. Problem Qualifiers (1) Closed right femoral fracture: Qualified Codes: S72.91XA - Unspecified fracture of right femur, initial encounter for closed fracture Erik Juarez MD November 12, 2017 13:23
[2017-11-12] MEDS ORDERED: FUROSEMIDE 40 MG/4 ML VIAL IV PUSH ONE (13:30)
[2017-11-12] MEDS: MIDODRINE 5 MG TAB PO SCH ×2 (13:41→18:27)
--- NOTE | 2017-11-12 13:47 | RADRPT ---
EXAM DATE/TIME: 11/12/2017 13:27 [facility] COMPARISON: CHEST SINGLE AP, November 08, 2017, 11:20. INDICATIONS : Shortness of breath. MEDICAL HISTORY : Hypertension. Hypercholesterolemia. Renal calculi. Seizure. Hypothyroidism. SURGICAL HISTORY : Gastric Bypass. Right Femur Repair. Right Ankle repair. ENCOUNTER: Initial ACUITY: 4 - 6 days PAIN SCORE: 0/10 LOCATION: Bilateral chest FINDINGS: Single AP view of the chest. Patchy opacity at the medial left lung base indicating atelectasis versu s mild consolidation. Lungs otherwise clear. Lung volumes are low. No evidence of pleural effusion or pneumothorax. CONCLUSION: Mild patchy atelectasis versus consolidation medial left lung base. Louie Hope MD on November 12, 2017 at 13:44 Board Certified Radiologist. This report was verified electronically.
[2017-11-12] MEDS: MELATONIN 5 MG TAB PO SCH (21:54)
[2017-11-12] MEDS: MIRTAZAPINE 15 MG TAB PO SCH (21:55)
[2017-11-13] VITALS (7 sets, daily range): BP systolic 92–101; BP diastolic 55–63; PULSE 74–111; RESP 15–20; TEMP 97.8–98.5; O2SAT 90–99
[2017-11-13] MEDS: MULTIVITAMIN INJ 10 ML, FOLIC ACID INJ 1 MG in SODIUM CHLORID 0.9% 500 ML INJ 500 ML IV SCH (04:52)
[2017-11-13] MEDS: DILTIAZEM HCL 60 MG TAB PO SCH ×3 (04:59→23:00)
[2017-11-13] MEDS: SODIUM CHLOR 0.9% 1000 ML INJ 1,000 ML IV SCH ×3 (04:59→23:57)
[2017-11-13] MEDS: MIDODRINE 5 MG TAB PO SCH ×3 (05:56→16:49)
[2017-11-13] MEDS: LEVOTHYROXINE SODIUM 75 MCG TAB PO SCH (05:56)
[2017-11-13] MEDS: MULTIVITAMINS/MINERALS THERAPEUTIC TAB PO SCH (08:18)
[2017-11-13] MEDS: ATORVASTATIN 40 MG TAB PO SCH (08:18)
[2017-11-13] MEDS: levETIRAcetam 500 MG TAB PO SCH ×2 (08:18→23:00)
[2017-11-13] MEDS: DOCUSATE SODIUM 50 MG/SENNA 8.6 MG TAB PO SCH ×2 (08:18→21:00)
[2017-11-13] MEDS: KETOROLAC TROMETHAMINE 10 MG TAB PO PRN ×2 (08:18→15:01)
[2017-11-13] MEDS: THIAMINE HCL 100 MG TAB PO SCH (08:19)
[2017-11-13] MEDS: PANTOPRAZOLE SOD 40 MG DELAYED RELEASE TAB PO SCH (08:19)
[2017-11-13] MEDS: DIGOXIN 0.125 MG TAB PO SCH (08:19)
[2017-11-13] MEDS: SODIUM CHLORIDE 0.9% FLUSH 10 ML FLUSH IV FLUSH SCH ×2 (08:19→21:00)
[2017-11-13] MEDS: APIXABAN 5 MG TABLET PO SCH (08:19)
[2017-11-13 10:52] LABS: LACTIC ACID SEPSIS PROTOCOL 2.5 mmol/L (0.4-2.0)
[2017-11-13] MEDS ORDERED: Vancomycin Consult Pharmacy 1 EA OTHER PRN (12:15)
[2017-11-13] MEDS ORDERED: VANCOMYCIN INJ 1,000 MG in SODIUM CHLOR 0.9% 250 ML INJ 250 ML IV SCH (13:00)
[2017-11-13] MEDS: VANCOMYCIN INJ 750 MG in SODIUM CHLOR 0.9% 250 ML INJ 250 ML IV SCH (13:03)
[2017-11-13 13:52] LABS: AUTOMATED NEUTROPHIL # 5.1 TH/MM3 (1.8-7.7); BASOPHIL % 0.2 % (0.0-2.0); EOSINOPHIL # 0.1 TH/MM3 (0-0.4); EOSINOPHIL % 0.8 % (0.0-4.0); HEMATOCRIT 27.6 % (35.0-46.0); HEMOGLOBIN 9.6 GM/DL (11.6-15.3); LYMPHOCYTE # 1.8 TH/MM3 (1.0-4.8); MEAN CELL VOLUME 101.5 FL (80.0-100.0); MEAN CORPUSCULAR HEMOGLOBIN 35.2 PG (27.0-34.0); MEAN CORPUSCULAR HGB CONC 34.7 % (32.0-36.0); MEAN PLATELET VOLUME 9.5 FL (7.0-11.0); MONO % 6.4 % (0.0-8.0); MONOCYTE # 0.5 TH/MM3 (0-0.9); NEUT % 68.6 % (16.0-70.0); PLATELET COUNT 196 TH/MM3 (150-450); RED BLOOD COUNT 2.72 MIL/MM3 (4.00-5.30); RED CELL DISTRIBUTION WIDTH 16.9 % (11.6-17.2); WHITE BLOOD COUNT 7.5 TH/MM3 (4.0-11.0)
[2017-11-13 14:17] LABS: BANDS 2 % (0-6); LYMPHOCYTES 15 % (9-44); METAMYELOCYTES 2 % (0-1); MONOCYTES 7 % (0-8); MYELOCYTES 1 % (0-0); NEUTROPHIL # MANUAL DIFF 5.8 TH/MM3 (1.8-7.7); POLYS (SEG NEUTROPHILS) 72 % (16-70)
--- NOTE | 2017-11-13 14:18 | HHI.PR ---
Subjective Remarks Patient is requiring more oxygen - now on 7 liters nasal canula. Denies cp/sob Patient still hypotensive with elevated lactic acid. Afebrile Objective Vitals Vital Signs Date Time Temp Pulse Resp B/P (MAP) Pulse Ox O2 Delivery O2 Flow Rate FiO2 11/13/17 13:58 95 Nasal Cannula 7.00 11/13/17 12:11 98.0 111 17 92/60 (71) 90 11/13/17 08:21 97.8 74 18 97/63 (74) 99 11/13/17 03:43 97.8 78 17 101/55 (70) 95 11/12/17 23:34 97.9 81 17 95/53 (67) 92 11/12/17 20:17 97.5 87 17 93/53 (66) 93 11/12/17 19:35 21 11/12/17 15:29 103 11/12/17 15:20 98.0 95 18 85/55 (65) 90 I/O 11/12/17 11/12/17 11/12/17 11/13/17 11/13/17 11/13/17 07:00 15:00 23:00 07:00 15:00 23:00 Intake Total 1800 ml 465 ml 960 ml 480 ml Balance 1800 ml 465 ml 960 ml 480 ml Intake Oral 700 ml 960 ml 480 ml IV Total 1100 ml 465 ml # Voids 3 6 2 # Bowel Movements 3 0 Result Diagram: 11/13/17 1334 11/11/17 0610 Imaging Last Impressions Chest X-Ray 11/12/17 0000 Signed Impressions: Service Date/Time: Sunday, November 12, 2017 13:27 - CONCLUSION: Mild patchy atelectasis versus consolidation medial left lung base. Louie Hope MD Lower Extremity Ultrasound 11/11/17 0000 Signed Impressions: Service Date/Time: Saturday, November 11, 2017 19:06 - CONCLUSION: 1. Positive for nonocclusive deep venous thrombosis right common femoral vein. Negative left lower extremity DVT study. Dawson Lakhani MD Femur X-Ray 11/09/17 0000 Signed Impressions: Service Date/Time: Thursday, November 09, 2017 14:32 - CONCLUSION: 1. Intramedullary elliott in place on the right. Elliott appears in satisfactory position. 2. There is excellent alignment of the distal femur fracture. Nirav Birmingham MD CT Angiography 11/09/17 0000 Signed Impressions: Service Date/Time: Thursday, November 09, 2017 04:14 - CONCLUSION: 1. There is a very tiny, isolated pulmonary embolus to the upper lobe right pulmonary artery. Pulmonary artery is otherwise clear. 2. Patchy pleural-parenchymal and atelectasis/scarring in both hemithoraces, left than right. There is also small bilateral pleural effusions with concomitant atelectatic changes in the bases. 3. Dense atherosclerotic calcification of the coronary arteries. 4. Diffuse hepatic fatty infiltration Juno Conway MD Knee X-Ray 11/08/17 0000 Signed Impressions: Service Date/Time: Wednesday, November 08, 2017 10:03 - CONCLUSION: Spiral and mildly displaced fracture of the distal femur. Js Hunter MD Objective Remarks SKIN: Warm and dry. CARDIOVASCULAR: Regular rate and rhythm. RESPIRATORY: No accessory muscle use. Clear to auscultation. Breath sounds equal bilaterally. GASTROINTESTINAL: Abdomen soft, non-tender, nondistended. Hepatic and splenic margins not palpable. MUSCULOSKELETAL: CKS to right extremity, pulses palpable Procedures Right leg intramedullary nail fixation of supracondylar femur fracture. Urinary Catheter: No Vascular Central Line Catheter: No A/P Problem List: (1) Closed right femoral fracture ICD Code: S72.91XA - Unspecified fracture of right femur, initial encounter for closed fracture Status: Acute (2) Acute respiratory failure with hypoxia ICD Code: J96.01 - Acute respiratory failure with hypoxia Status: Acute (3) Pulmonary embolism ICD Code: I26.99 - Other pulmonary embolism without acute cor pulmonale Status: Acute (4) DVT (deep venous thrombosis) ICD Code: I82.409 - Acute embolism and thrombosis of unspecified deep veins of unspecified lower extremity Status: Acute (5) Hypotension ICD Code: I95.9 - Hypotension, unspecified Status: Acute (6) HTN (hypertension) ICD Code: I10 - Essential (primary) hypertension Status: Chronic (7) HLD (hyperlipidemia) ICD Code: E78.5 - Hyperlipidemia, unspecified Status: Chronic (8) Chronic a-fib ICD Code: I48.2 - Chronic atrial fibrillation Status: Chronic (9) Postoperative anemia due to acute blood loss ICD Code: D62 - Acute posthemorrhagic anemia Status: Acute (10) Alcohol abuse ICD Code: F10.10 - Alcohol abuse, uncomplicated Status: Chronic Assessment and Plan Ms. Carbone is a 67 y/o female from [place] with a history of generalized weakness requiring an electric scooter for mobilization, hypothyroidism, seizure, atrial fibrillation not on anticoagulation, hypertension, hyperlipidemia, GERD, osteoporosis, and osteoarthritis who fell from a bed and landed on her right knee with subsequent severe pain. She was found to have a mildly displaced spiral fracture of distal femur. Suspected HCAP - New infiltrate on CXR - IV antibiotics as above - Duonebs as needed - Pulmonology consultation - Check blood cultures. Elevated Lactic Acid - Lactic acid elevated at 2.5. Place on IV fluids, monitor lactic acid. Acute respiratory failure with hypoxia Pulmonary embolus. CT PA reviewed and shows a tj tiny pulmonary embolus to the upper lobe right pulmonary artery. - ABG with oxygen saturation 84 % pO2 52 on 2 liters via NC -Cont o2 -patient not in respiratory distress at any time -11/10 placed patient on eliquis 5mg BID for 90 days, instructed patients about follow up with PCP when they return to [place]. - 11/11 patient satting well on 2 L nasal cannula earlier today. However now patient's oxygen is dropping down to the low 80s on room air. Continue supplemental oxygen to keep oxygen saturation more than 92%, stat chest x-ray, suspect patient has fluid overload since the patient is getting of the IV fluid boluses and was started on IV fluids overnight. Will give Lasix 40 mg IV once. Discontinue IV fluids. Case discussed with RN. - 11/13 Patient is requiring more oxygen. CXR reviewed by me shows consolidation in the medial left lung base. start IV Vancomycin and Zosyn. Continue supplemental oxygen to keep o2 sat >92%. Consult pulmonology. Check BNP. Repeat CXR today. Hypernatremia Mild hypernatremia. Sodium 146. Encourage oral intake of fluids. Monitor BMP. Sepsis/hypotension - Patient meets sepsis criteria with heart rate more than 90, PaO2 of less than 32 on ABG obtained on November 08 an elevated lactic acid. -Start IV antibiotics as above, check blood cultures, monitor lactic acid, IV fluids -Check urinalysis. Atrial fibrillation - continuous cardiac telemetry to monitor for arrhythmia -Due to PE patient may benefit from life long anticoagulation -11/11 persistent chronic atrial fibrillation. Telemetry shows atrial fibrillation which is rate controlled. Continue diltiazem and digoxin. Hold beta-paty given concurrent hypotension. - 11/12 continue to hold beta-paty, continue diltiazem with holding parameters. Daily alcohol use of uncertain amount - will place on [facility] protocol - Thiamine, MVI IV -Withdraw precautions -11/11 no evidence of alcohol withdrawal. Seizures - continue home Keppra - seizure precautions - 11/11 no evidence of seizures. Pulmonary emboli -CT pulmonary angiogram showed a very tiny isolated pulmonary embolus to the upper lobe right of the pulmonary artery. It also showed a patchy pleural parenchymal atelectasis versus scarring in both endorses. Small bilateral pleural effusions with concomitant atelectatic changes in the bases. -Continue supplemental oxygen as needed. - Incentive spirometry. - Patient is on Apixaban 5 mg PO BID. Closed right femoral fracture - orthopedics consulted; patient seen by Dr. Gonzalez and is following - morphine/norco prn pain - PT recommended PT at rehab. DVT prophylaxis: Eliquis - SCDs/TEDs on unaffected extremity Discharge Planning worsening hypoxemia - transfer to ICU. Consult pulmonology. Problem Qualifiers (1) Closed right femoral fracture: Qualified Codes: S72.91XA - Unspecified fracture of right femur, initial encounter for closed fracture Erik Juarez MD November 13, 2017 14:18
[2017-11-13 14:21] LABS: ALBUMIN 1.8 GM/DL (3.4-5.0); AST (GOT) 27 U/L (15-37); BICARBONATE 21.8 MEQ/L (21.0-32.0); BLOOD UREA NITROGEN 16 MG/DL (7-18); CALCIUM 7.7 MG/DL (8.5-10.1); CHLORIDE 115 MEQ/L (98-107); CREATININE 0.72 MG/DL (0.50-1.00); GLOMERULAR FILTRATION RATE 81 ML/MIN (>89); GLUCOSE,RANDOM 92 MG/DL (74-106); SODIUM (NA) 146 MEQ/L (136-145)
[2017-11-13 14:22] LABS: ALT (GPT) 13 U/L (10-53)
[2017-11-13 14:25] LABS: ALKALINE PHOSPHATASE 220 U/L (45-117); TOTAL BILIRUBIN ADULT 0.6 MG/DL (0.2-1.0); TOTAL PROTEIN 4.1 GM/DL (6.4-8.2)
--- NOTE | 2017-11-13 14:48 | RADRPT ---
EXAM DATE/TIME: 11/13/2017 14:27 [facility] COMPARISON: CHEST SINGLE AP, November 12, 2017, 13:27. INDICATIONS : Respiratory failure. MEDICAL HISTORY : Hypertension. Hypercholesterolemia. Renal calculi. Seizure. Hypothyroidism. SURGICAL HISTORY : Gastric Bypass. Right Femur Repair. Right Ankle repair. Left hip replacement. ENCOUNTER: Subsequent ACUITY: 4 - 6 days PAIN SCORE: 0/10 LOCATION: Bilateral chest FINDINGS: Single AP view of the chest. Patchy left lung base atelectasis unchanged. Lungs otherwise clear. No e vidence of pleural effusion or pneumothorax. Lung volumes are low. CONCLUSION: No significant interval change with patchy left lung base atelectasis again seen. Louie Hope MD on November 13, 2017 at 14:44 Board Certified Radiologist. This report was verified electronically.
[2017-11-13] MEDS: PIPERACIL-TAZO 4.5 GM PREMIX 100 ML IV SCH ×2 (14:54→23:00)
[2017-11-13] MEDS: ENOXAPARIN SODIUM 60 MG/0.6 ML SYRINGE SQ SCH (16:49)
--- NOTE | 2017-11-13 16:52 | MB ---
cc: Karen López MD DATE: 11/13/2017 REASON FOR CONSULTATION: Hypoxia with pulmonary emboli and DVT. HISTORY OF PRESENT ILLNESS: This is a 67-year-old lady who is mostly in an electric scooter for mobilization, history for atrial fibrillation and seizure disorder as well as hypertension and hyperlipidemia, apparently had a fall from her bed and landed on her right knee and suffered a fracture of the distal femur, which was slightly displaced. The patient was seen in the [facility] and subsequently taken to surgery by orthopedics and the surgery was done on 11/09/2017 which included right leg intramedullary nail fixation of the supracondylar femur fracture. Postoperatively, the patient was on the surgical floor and had a CTA and a leg x-ray since she was hypoxic and the CTA demonstrated a small pulmonary embolus in the right upper lobe pulmonary artery and patchy atelectasis in both hemithoraces. The Doppler of the leg veins was also done, which showed a DVT in the right common femoral vein. She was started on Eliquis 5 mg twice a day, but has been hypoxic over the past 24 hours, requiring oxygen up to 6 liters nasal cannula and she is now being transferred to the Intensive Care Unit. She complains of some shortness of breath and heaviness, but denies any hemoptysis, fevers or chills. PAST MEDICAL HISTORY: Included a history for atrial fibrillation, but not on anticoagulation. She is hypertensive and has hyperlipidemia, nephrolithiasis and history of arthritis and osteoporosis, as well as depression. PAST SURGICAL HISTORY: Includes right ankle surgery with pins, right knee arthroscopy, left hip replacement, right shoulder rotator cuff surgery and a previous gastric bypass. HABITS: The patient does not smoke. Drinks alcohol regularly. FAMILY HISTORY: One brother with COPD and mother had osteoporosis. ALLERGIES: NONE LISTED. MEDICATION LIST: 1. Cardizem 60 mg t.i.d. 2. Bupropion 150 mg b.i.d. 3. Rosuvastatin 20 mg a day. 4. Levetiracetam 500 mg b.i.d. 5. Metoprolol 12.5 mg b.i.d. 6. Mirtazapine 15 mg at bedtime. 7. Levothyroxine 75 mcg a day. 8. Digoxin 0.125 mg daily. 9. Aspirin 1 daily. REVIEW OF SYSTEMS: Patient has pain in the right leg. She has wheezing and orthopnea. She has some epigastric distress. Denies fevers and night sweats. Denies urinary symptoms. She has some joint pains of her extremities and hip pains. Denies any skin lesions. PHYSICAL EXAMINATION: GENERAL: This thin, elderly lady was in no acute distress. Mild pallor. No clubbing or cyanosis. VITAL SIGNS: Blood pressure 100/60, pulse 106, respirations 20, temperature is 97.6. HEENT: Head is normocephalic. Pupils are reactive. Tongue is moist. Throat is injected. Nasal mucosa edematous. NECK: Supple. No bruits or thyroid enlargement. CHEST: Distant breath sounds with expiratory wheezes bilaterally and occasional crackles at the right base. HEART: Sounds were regular S1 and S2. No murmur. ABDOMEN: Soft, protuberant. No mass. No organomegaly. EXTREMITIES: Right leg is in a cast and brace and cannot palpate the calf muscles. Pulses are well felt. Left leg is unremarkable. Reflexes are 1+ with no gross deficits. SKIN: Dry and scaly. IMPRESSION: 1. Pulmonary embolism with hypoxemia. 2. Deep venous thrombosis, right lower extremity. 3. Status post repair of right femoral fracture. 4. Atrial fibrillation, chronic. 5. History of seizures. PLAN: The patient will be placed on Lovenox since her anticoagulation was not adequate and she was placed on 1 mg/kg of Lovenox every 12 hours. Nebulized albuterol solution added q.6 hours p.r.n. O2 at 5 liters and wean down to keep sats over 92 and the patient will be transferred to the Intensive Care Unit for closer monitoring. Bedrest of the spine. Physical therapy when she was clinically stable and repeat chest x-ray to be done in a.m. The patient will also be kept on oral Ceftin for possible pneumonia. Thank you for this consultation. MD LACI Hector/SOTO , 04:27 PM , 04:51 PM HARRY
[2017-11-13] MEDS ORDERED: CEFUROXIME AXETIL 500 MG TAB PO SCH (21:00)
[2017-11-13] MEDS: RESP: ALBUTEROL 1.25 MG/3 ML NEB (SCH) NEB (22:00)
[2017-11-13] MEDS: MELATONIN 5 MG TAB PO SCH (23:00)
[2017-11-13] MEDS: MIRTAZAPINE 15 MG TAB PO SCH (23:01)
[2017-11-14] VITALS (13 sets, daily range): BP systolic 83–109; BP diastolic 51–58; PULSE 62–88; RESP 14–26; TEMP 97.9–98.7; O2SAT 94–100
[2017-11-14] MEDS: VANCOMYCIN INJ 750 MG in SODIUM CHLOR 0.9% 250 ML INJ 250 ML IV SCH ×2 (01:00→16:25)
[2017-11-14 01:33] LABS: BILIRUBIN, URINE NEG (NEG); BLOOD, URINE NEG (NEG); GLUCOSE,URINE NEG (NEG); KETONE, URINE NEG (NEG); MUCUS URINE FEW /lpf (OCC); NITRITE,URINE NEG (NEG); PH, URINE 5.5 (5.0-8.5); SQUAMOUS EPITHELIAL CELL URINE <1 /hpf (0-5); URINE COLOR COLORLESS (YELLW/STRAW); URINE LEUKOCYTE ESTERASE LARGE (NEG)
[2017-11-14] MEDS: KETOROLAC TROMETHAMINE 10 MG TAB PO PRN ×3 (04:00→17:29)
[2017-11-14] MEDS: RESP: ALBUTEROL 1.25 MG/3 ML NEB (SCH) NEB ×4 (04:00→19:45)
[2017-11-14] MEDS: ENOXAPARIN SODIUM 60 MG/0.6 ML SYRINGE SQ SCH ×2 (04:00→16:26)
[2017-11-14] MEDS: DILTIAZEM HCL 60 MG TAB PO SCH ×3 (06:00→21:35)
[2017-11-14] MEDS: PIPERACIL-TAZO 4.5 GM PREMIX 100 ML IV SCH ×3 (06:04→21:36)
[2017-11-14 06:07] LABS: AUTOMATED NEUTROPHIL # 3.2 TH/MM3 (1.8-7.7); BASOPHIL % 0.4 % (0.0-2.0); EOSINOPHIL # 0.1 TH/MM3 (0-0.4); EOSINOPHIL % 1.4 % (0.0-4.0); HEMATOCRIT 24.1 % (35.0-46.0); HEMOGLOBIN 8.1 GM/DL (11.6-15.3); LYMPH % 30.8 % (9.0-44.0); LYMPHOCYTE # 1.6 TH/MM3 (1.0-4.8); MEAN CELL VOLUME 102.5 FL (80.0-100.0); MEAN CORPUSCULAR HEMOGLOBIN 34.4 PG (27.0-34.0); MEAN CORPUSCULAR HGB CONC 33.5 % (32.0-36.0); MEAN PLATELET VOLUME 9.4 FL (7.0-11.0); MONO % 7.3 % (0.0-8.0); MONOCYTE # 0.4 TH/MM3 (0-0.9); NEUT % 60.1 % (16.0-70.0); PLATELET COUNT 168 TH/MM3 (150-450); RED BLOOD COUNT 2.35 MIL/MM3 (4.00-5.30); RED CELL DISTRIBUTION WIDTH 17.1 % (11.6-17.2); WHITE BLOOD COUNT 5.3 TH/MM3 (4.0-11.0)
[2017-11-14 06:29] LABS: ALBUMIN 1.4 GM/DL (3.4-5.0); AST (GOT) 19 U/L (15-37); BICARBONATE 22.9 MEQ/L (21.0-32.0); BLOOD UREA NITROGEN 13 MG/DL (7-18); CALCIUM 7.6 MG/DL (8.5-10.1); CHLORIDE 118 MEQ/L (98-107); CREATININE 0.59 MG/DL (0.50-1.00); GLOMERULAR FILTRATION RATE 102 ML/MIN (>89); GLUCOSE,RANDOM 69 MG/DL (74-106); MAGNESIUM 1.7 MG/DL (1.5-2.5); SODIUM (NA) 148 MEQ/L (136-145)
[2017-11-14 06:30] LABS: ALT (GPT) 9 U/L (10-53); PHOSPHORUS 2.8 MG/DL (2.5-4.9)
[2017-11-14 06:33] LABS: ALKALINE PHOSPHATASE 179 U/L (45-117); TOTAL BILIRUBIN ADULT 0.6 MG/DL (0.2-1.0); TOTAL PROTEIN 3.3 GM/DL (6.4-8.2)
[2017-11-14] MEDS: MIDODRINE 5 MG TAB PO SCH ×3 (06:46→17:29)
[2017-11-14] MEDS: LEVOTHYROXINE SODIUM 75 MCG TAB PO SCH (06:46)
[2017-11-14] MEDS: DOCUSATE SODIUM 50 MG/SENNA 8.6 MG TAB PO SCH ×2 (09:00→21:34)
[2017-11-14] MEDS: SODIUM CHLOR 0.9% 1000 ML INJ 1,000 ML IV SCH (09:32)
[2017-11-14] MEDS: DIGOXIN 0.125 MG TAB PO SCH (11:23)
[2017-11-14] MEDS: SODIUM CHLORIDE 0.9% FLUSH 10 ML FLUSH IV FLUSH SCH ×2 (11:23→21:34)
[2017-11-14] MEDS: PANTOPRAZOLE SOD 40 MG DELAYED RELEASE TAB PO SCH (11:23)
[2017-11-14] MEDS: MULTIVITAMINS/MINERALS THERAPEUTIC TAB PO SCH (11:23)
[2017-11-14] MEDS: THIAMINE HCL 100 MG TAB PO SCH (11:23)
[2017-11-14] MEDS: levETIRAcetam 500 MG TAB PO SCH ×2 (11:24→21:34)
[2017-11-14] MEDS: ATORVASTATIN 40 MG TAB PO SCH (11:24)
--- NOTE | 2017-11-14 11:32 | HHI.PR ---
Subjective Remarks The patient denies chest pain or shortness of breath. Oxygenation improving, the patient now on 2 L nasal cannula. Denies fevers or chills. Blood pressure still low, however improving with a systolic blood pressure in the high 90s. Objective Vitals Vital Signs Date Time Temp Pulse Resp B/P (MAP) Pulse Ox O2 Delivery O2 Flow Rate FiO2 11/14/17 11:30 96 Nasal Cannula 3.00 11/14/17 07:00 99 Nasal Cannula 4.00 11/14/17 04:00 98.1 76 25 99/58 (72) 94 11/14/17 00:00 97.9 66 22 87/51 (63) 97 11/13/17 23:28 98 Nasal Cannula 2.00 11/13/17 20:00 94 Nasal Cannula 4.00 11/13/17 20:00 98.5 86 15 94/61 (72) 94 11/13/17 18:00 80 11/13/17 18:00 98.2 82 20 94/61 (72) 95 11/13/17 15:58 98.1 82 18 97/56 (70) 95 11/13/17 13:58 95 Nasal Cannula 7.00 11/13/17 12:11 98.0 111 17 92/60 (71) 90 I/O 11/13/17 11/13/17 11/13/17 11/14/17 11/14/17 11/14/17 07:00 15:00 23:00 07:00 15:00 23:00 Intake Total 480 ml 767.7 ml 1840 ml 590 ml 804 ml Balance 480 ml 767.7 ml 1840 ml 590 ml 804 ml Intake Oral 480 ml 740 ml 240 ml IV Total 767.7 ml 1100 ml 350 ml 804 ml # Voids 2 5 3 # Bowel Movements 0 3 0 Result Diagram: 11/14/17 0539 11/14/17 0539 Imaging Last Impressions Chest X-Ray 11/13/17 0000 Signed Impressions: Service Date/Time: Monday, November 13, 2017 14:27 - CONCLUSION: No significant interval change with patchy left lung base atelectasis again seen. Louie Hope MD Lower Extremity Ultrasound 11/11/17 0000 Signed Impressions: Service Date/Time: Saturday, November 11, 2017 19:06 - CONCLUSION: 1. Positive for nonocclusive deep venous thrombosis right common femoral vein. Negative left lower extremity DVT study. Dawson Lakhani MD Femur X-Ray 11/09/17 0000 Signed Impressions: Service Date/Time: Thursday, November 09, 2017 14:32 - CONCLUSION: 1. Intramedullary elliott in place on the right. Elliott appears in satisfactory position. 2. There is excellent alignment of the distal femur fracture. Nirav Birmingham MD CT Angiography 11/09/17 Signed Impressions: Service Date/Time: Thursday, November 09, 2017 04:14 - CONCLUSION: 1. There is a very tiny, isolated pulmonary embolus to the upper lobe right pulmonary artery. Pulmonary artery is otherwise clear. 2. Patchy pleural-parenchymal and atelectasis/scarring in both hemithoraces, left than right. There is also small bilateral pleural effusions with concomitant atelectatic changes in the bases. 3. Dense atherosclerotic calcification of the coronary arteries. 4. Diffuse hepatic fatty infiltration Juno Conway MD Knee X-Ray 11/08/17 Signed Impressions: Service Date/Time: Wednesday, November 08, 2017 10:03 - CONCLUSION: Spiral and mildly displaced fracture of the distal femur. Js Hunter MD Objective Remarks SKIN: Warm and dry. CARDIOVASCULAR: Regular rate and rhythm. RESPIRATORY: No accessory muscle use. Clear to auscultation. Breath sounds equal bilaterally. GASTROINTESTINAL: Abdomen soft, non-tender, nondistended. Hepatic and splenic margins not palpable. MUSCULOSKELETAL: CKS to right extremity, pulses palpable Procedures Right leg intramedullary nail fixation of supracondylar femur fracture. A/P Problem List: (1) Closed right femoral fracture ICD Code: S72.91XA - Unspecified fracture of right femur, initial encounter for closed fracture Status: Acute (2) Acute respiratory failure with hypoxia ICD Code: J96.01 - Acute respiratory failure with hypoxia Status: Acute (3) Pulmonary embolism ICD Code: I26.99 - Other pulmonary embolism without acute cor pulmonale Status: Acute (4) DVT (deep venous thrombosis) ICD Code: I82.409 - Acute embolism and thrombosis of unspecified deep veins of unspecified lower extremity Status: Acute (5) Hypotension ICD Code: I95.9 - Hypotension, unspecified Status: Acute (6) HTN (hypertension) ICD Code: I10 - Essential (primary) hypertension Status: Chronic (7) HLD (hyperlipidemia) ICD Code: E78.5 - Hyperlipidemia, unspecified Status: Chronic (8) Chronic a-fib ICD Code: I48.2 - Chronic atrial fibrillation Status: Chronic (9) Postoperative anemia due to acute blood loss ICD Code: D62 - Acute posthemorrhagic anemia Status: Acute (10) Alcohol abuse ICD Code: F10.10 - Alcohol abuse, uncomplicated Status: Chronic Assessment and Plan Ms. Carbone is a 67 y/o female from [place] with a history of generalized weakness requiring an electric scooter for mobilization, hypothyroidism, seizure, atrial fibrillation not on anticoagulation, hypertension, hyperlipidemia, GERD, osteoporosis, and osteoarthritis who fell from a bed and landed on her right knee with subsequent severe pain. She was found to have a mildly displaced spiral fracture of distal femur. Suspected HCAP - New infiltrate on CXR - IV antibiotics as above - Iv antibiotics, IV Zosyn - Duonebs as needed - Pulmonology consulted - appreciate recommendations. - Check blood cultures. Elevated Lactic Acid - Lactic acid elevated at 2.5. Place on IV fluids, monitor lactic acid. -11/14 lactic acid improved after IV fluid demonstration. Acute respiratory failure with hypoxia Pulmonary embolus. CT PA reviewed and shows a tj tiny pulmonary embolus to the upper lobe right pulmonary artery. - ABG with oxygen saturation 84 % pO2 52 on 2 liters via NC -Cont o2 -patient not in respiratory distress at any time -11/10 placed patient on eliquis 5mg BID for 90 days, instructed patients about follow up with PCP when they return to [place]. - 11/11 patient satting well on 2 L nasal cannula earlier today. However now patient's oxygen is dropping down to the low 80s on room air. Continue supplemental oxygen to keep oxygen saturation more than 92%, stat chest x-ray, suspect patient has fluid overload since the patient is getting of the IV fluid boluses and was started on IV fluids overnight. Will give Lasix 40 mg IV once. Discontinue IV fluids. Case discussed with RN. - 11/13 Patient is requiring more oxygen. CXR reviewed by me shows consolidation in the medial left lung base. start IV Vancomycin and Zosyn. Continue supplemental oxygen to keep o2 sat >92%. Consult pulmonology. Check BNP. Repeat CXR today. -11/14 repeat chest x-ray does show any significant interval change with patchy left lung base atelectasis again seen. Continue supplement oxygen to keep oxygen saturation more than 92%. Hypernatremia Mild hypernatremia. Sodium 146. Encourage oral intake of fluids. Monitor BMP. 11/14 change IV fluids to half-normal saline. Sepsis/hypotension - Patient meets sepsis criteria with heart rate more than 90, PaO2 of less than 32 on ABG obtained on November 08 an elevated lactic acid. - IV antibiotics as above, check blood cultures, monitor lactic acid, IV fluids -Sepsis possibly secondary to UTI/pneumonia. UA positive. Urine culture pending. Atrial fibrillation - continuous cardiac telemetry to monitor for arrhythmia -Due to PE patient may benefit from life long anticoagulation -11/11 persistent chronic atrial fibrillation. Telemetry shows atrial fibrillation which is rate controlled. Continue diltiazem and digoxin. Hold beta-paty given concurrent hypotension. - 11/12 continue to hold beta-paty, continue diltiazem with holding parameters. - 11/14 check digoxin level. Daily alcohol use of uncertain amount - will place on [facility] protocol - Thiamine, MVI IV -Withdraw precautions -11/11 no evidence of alcohol withdrawal. Seizures - continue home Keppra - seizure precautions - 11/11 no evidence of seizures. Pulmonary emboli -CT pulmonary angiogram showed a very tiny isolated pulmonary embolus to the upper lobe right of the pulmonary artery. It also showed a patchy pleural parenchymal atelectasis versus scarring in both endorses. Small bilateral pleural effusions with concomitant atelectatic changes in the bases. -Continue supplemental oxygen as needed. - Incentive spirometry. - Patient is on Apixaban 5 mg PO BID. Closed right femoral fracture - orthopedics consulted; patient seen by Dr. Gonzalez and is following - morphine/norco prn pain - PT recommended PT at rehab. DVT prophylaxis: Eliquis - SCDs/TEDs on unaffected extremity Discharge Planning Continue to monitor in the ICU. Patient still hypotensive. Problem Qualifiers (1) Closed right femoral fracture: Qualified Codes: S72.91XA - Unspecified fracture of right femur, initial encounter for closed fracture Erik Juarez MD November 14, 2017 11:32
[2017-11-14] MEDS: 1/2 NS + KCL 20 MEQ INJ 1,000 ML IV SCH ×2 (13:45→21:34)
[2017-11-14] MEDS ORDERED: ALBUMIN 25% INJ 50 ML IV ONE (14:45)
--- NOTE | 2017-11-14 19:10 | HHI.PR ---
Subjective Remarks Patient feels better. On O2 2 L. On Lovenox . No chest pains. Objective Vital Signs Date Time Temp Pulse Resp B/P (MAP) Pulse Ox O2 Delivery O2 Flow Rate FiO2 11/14/17 18:00 69 11/14/17 16:00 77 11/14/17 16:00 98.5 77 14 109/55 (73) 98 11/14/17 14:00 85 11/14/17 12:30 95 Nasal Cannula 2.00 11/14/17 12:00 98.1 80 15 87/56 (66) 97 11/14/17 12:00 80 11/14/17 11:59 100 Nasal Cannula 2.00 11/14/17 11:30 96 Nasal Cannula 3.00 11/14/17 10:00 88 11/14/17 08:00 62 11/14/17 08:00 98.7 62 20 100/55 (70) 99 11/14/17 07:00 99 Nasal Cannula 4.00 11/14/17 04:00 98.1 76 25 99/58 (72) 94 11/14/17 00:00 97.9 66 22 87/51 (63) 97 11/13/17 23:28 98 Nasal Cannula 2.00 11/13/17 20:00 94 Nasal Cannula 4.00 11/13/17 20:00 98.5 86 15 94/61 (72) 94 I/O 11/13/17 11/13/17 11/13/17 11/14/17 11/14/17 11/14/17 07:00 15:00 23:00 07:00 15:00 23:00 Intake Total 480 ml 767.7 ml 1840 ml 590 ml 1859 ml 592 ml Output Total 150 ml Balance 480 ml 767.7 ml 1840 ml 590 ml 1859 ml 442 ml Intake Oral 480 ml 740 ml 240 ml 390 ml 300 ml IV Total 767.7 ml 1100 ml 350 ml 1469 ml 292 ml Output Urine Total 150 ml # Voids 2 5 3 2 2 # Bowel Movements 0 3 0 1 2 Result Diagram: 11/14/17 0539 11/14/17 0539 Objective Remarks GENERAL: This is a well-nourished, well-developed patient, in no apparent distress. CARDIOVASCULAR: Regular rate and rhythm without murmurs, gallops, or rubs. RESPIRATORY: Diffuse expiratory wheezes, diminished breath sounds bilaterally. GASTROINTESTINAL: Abdomen soft, non-tender,nondistended. Normal active bowel sounds MUSCULOSKELETAL: Extremities without clubbing, cyanosis, or edema.Has a cast a nd dressing of the Right knee. NEURO: Alert & Oriented x4 to person, place, time, situation. Moves all ext x4 Skin: No lesions. Assessment and Plan Assessment and Plan Closed right femoral fracture S/P ORIF Acute respiratory failure with hypoxia, resolved. Pulmonary Emboli. Cont lovenox , 1 mg /Kg BID DVT Right femoral. Continue lovenox . Atrial fibrillation - continuous cardiac telemetry to monitor for arrhythmia - continue home metoprolol,dig and diltiazem. Seizures - continue home Keppra - seizure precautions Karen López MD November 14, 2017 19:10
[2017-11-14] MEDS: MELATONIN 5 MG TAB PO SCH (21:34)
[2017-11-14] MEDS: MIRTAZAPINE 15 MG TAB PO SCH (21:35)
[2017-11-15] VITALS (23 sets, daily range): BP systolic 87–129; BP diastolic 53–74; PULSE 66–101; RESP 14–29; TEMP 97.8–98.6; O2SAT 91–99
[2017-11-15] MEDS ORDERED: PHARMACY ORDERED LAB ONE (00:45)
[2017-11-15] MEDS: VANCOMYCIN INJ 750 MG in SODIUM CHLOR 0.9% 250 ML INJ 250 ML IV SCH (02:03)
[2017-11-15] MEDS: KETOROLAC TROMETHAMINE 10 MG TAB PO PRN ×4 (03:03→21:01)
[2017-11-15] MEDS: ENOXAPARIN SODIUM 60 MG/0.6 ML SYRINGE SQ SCH ×2 (03:03→15:49)
[2017-11-15] MEDS: RESP: ALBUTEROL 1.25 MG/3 ML NEB (SCH) NEB ×4 (04:00→21:35)
[2017-11-15 05:12] LABS: AUTOMATED NEUTROPHIL # 2.4 TH/MM3 (1.8-7.7); BASOPHIL % 0.4 % (0.0-2.0); EOSINOPHIL # 0.1 TH/MM3 (0-0.4); EOSINOPHIL % 1.6 % (0.0-4.0); LYMPH % 34.1 % (9.0-44.0); LYMPHOCYTE # 1.5 TH/MM3 (1.0-4.8); MEAN CELL VOLUME 102.5 FL (80.0-100.0); MEAN CORPUSCULAR HEMOGLOBIN 34.4 PG (27.0-34.0); MEAN CORPUSCULAR HGB CONC 33.5 % (32.0-36.0); MEAN PLATELET VOLUME 9.3 FL (7.0-11.0); MONO % 8.9 % (0.0-8.0); MONOCYTE # 0.4 TH/MM3 (0-0.9); PLATELET COUNT 162 TH/MM3 (150-450); RED BLOOD COUNT 2.02 MIL/MM3 (4.00-5.30); RED CELL DISTRIBUTION WIDTH 17.1 % (11.6-17.2); WHITE BLOOD COUNT 4.4 TH/MM3 (4.0-11.0)
[2017-11-15 05:26] LABS: ALBUMIN 1.4 GM/DL (3.4-5.0); BICARBONATE 21.5 MEQ/L (21.0-32.0); CALCIUM 7.2 MG/DL (8.5-10.1); CALCIUM-PROTEIN CORRECTED 9.6 MG/DL (8.5-10.1); CREATININE 0.52 MG/DL (0.50-1.00); MAGNESIUM 1.8 MG/DL (1.5-2.5); PHOSPHORUS 2.6 MG/DL (2.5-4.9); TOTAL BILIRUBIN ADULT 0.5 MG/DL (0.2-1.0); TOTAL PROTEIN 3.2 GM/DL (6.4-8.2)
[2017-11-15 05:27] LABS: HEMATOCRIT 20.7 % (35.0-46.0)
[2017-11-15] MEDS: LEVOTHYROXINE SODIUM 75 MCG TAB PO SCH (05:53)
[2017-11-15] MEDS: PIPERACIL-TAZO 4.5 GM PREMIX 100 ML IV SCH ×2 (05:53→15:49)
[2017-11-15] MEDS: DILTIAZEM HCL 60 MG TAB PO SCH ×3 (05:53→21:01)
[2017-11-15] MEDS: MIDODRINE 5 MG TAB PO SCH ×3 (05:53→16:02)
[2017-11-15] MEDS ORDERED: SODIUM CHLOR 0.9% 250 ML INJ 250 ML IV ONE (06:00)
[2017-11-15] MEDS: 1/2 NS + KCL 20 MEQ INJ 1,000 ML IV SCH (07:30)
[2017-11-15] MEDS: DOCUSATE SODIUM 50 MG/SENNA 8.6 MG TAB PO SCH ×2 (09:00→21:00)
[2017-11-15] MEDS: SODIUM CHLORIDE 0.9% FLUSH 10 ML FLUSH IV FLUSH SCH ×2 (09:00→21:02)
[2017-11-15] MEDS: ATORVASTATIN 40 MG TAB PO SCH (09:08)
[2017-11-15] MEDS: THIAMINE HCL 100 MG TAB PO SCH (09:08)
[2017-11-15] MEDS: MULTIVITAMINS/MINERALS THERAPEUTIC TAB PO SCH (09:09)
[2017-11-15] MEDS: levETIRAcetam 500 MG TAB PO SCH ×2 (09:09→21:01)
[2017-11-15] MEDS: DIGOXIN 0.125 MG TAB PO SCH (09:09)
[2017-11-15] MEDS: PANTOPRAZOLE SOD 40 MG DELAYED RELEASE TAB PO SCH (09:12)
[2017-11-15] MEDS: MORPHINE SULFATE 4 MG/ML INJ IV PUSH PRN ×2 (12:02→15:53)
--- NOTE | 2017-11-15 14:50 | HHI.PR ---
Subjective Remarks Patient feels better. Off O2. On Lovenox . Hgb <8.0 Objective Vital Signs Date Time Temp Pulse Resp B/P (MAP) Pulse Ox O2 Delivery O2 Flow Rate FiO2 11/15/17 14:16 97.8 101 20 97/69 97 11/15/17 13:54 98.2 86 19 96/67 95 11/15/17 13:00 79 11/15/17 12:30 16 11/15/17 12:00 97.8 69 26 114/74 (87) 11/15/17 11:00 70 11/15/17 11:00 80 11/15/17 10:15 19 11/15/17 09:30 Room Air 11/15/17 09:05 98 11/15/17 09:00 75 11/15/17 08:00 98.1 74 14 94/54 (67) 11/15/17 07:00 68 11/15/17 07:00 Nasal Cannula 2.00 11/15/17 05:00 76 11/15/17 04:00 98.6 74 24 97/62 (74) 99 11/15/17 03:00 83 11/15/17 01:00 72 11/15/17 00:00 98.2 69 20 91/54 (66) 98 11/14/17 23:00 73 11/14/17 21:00 83 11/14/17 20:00 98.4 75 26 83/54 (64) 95 11/14/17 19:48 95 Nasal Cannula 1.00 11/14/17 18:00 69 11/14/17 16:00 77 11/14/17 16:00 98.5 77 14 109/55 (73) 98 I/O 11/14/17 11/14/17 11/14/17 11/15/17 11/15/17 11/15/17 07:00 15:00 23:00 07:00 15:00 23:00 Intake Total 590 ml 1859 ml 592 ml 1833.5 ml 20 ml Output Total 150 ml 700 ml Balance 590 ml 1859 ml 442 ml 1133.5 ml 20 ml Intake Oral 240 ml 390 ml 300 ml IV Total 350 ml 1469 ml 292 ml 1833.5 ml Blood Product IV Normal Saline Flush 20 ml Output Urine Total 150 ml 700 ml # Voids 3 2 2 # Bowel Movements 0 1 2 1 Result Diagram: 11/15/1740811/15/17408 Objective Remarks GENERAL: This is a well-nourished, well-developed patient, in no apparent distress. CARDIOVASCULAR: Regular rate and rhythm without murmurs, gallops, or rubs. RESPIRATORY: Diffuse expiratory wheezes, diminished breath sounds bilaterally. GASTROINTESTINAL: Abdomen soft, non-tender,nondistended. Normal active bowel sounds MUSCULOSKELETAL: Extremities without clubbing, cyanosis, or edema.Has a cast a nd dressing of the Right knee. NEURO: Alert & Oriented x4 to person, place, time, situation. Moves all ext x4 Skin: No lesions. Assessment and Plan Assessment and Plan Closed right femoral fracture S/P ORIF Acute respiratory failure with hypoxia, resolved. D/C O2 Pulmonary Emboli. Cont lovenox , 1 mg /Kg BID DVT Right femoral. Continue lovenox . and switch to Eliquis in am Atrial fibrillation - continuous cardiac telemetry to monitor for arrhythmia - continue home metoprolol,dig and diltiazem. Seizures - continue home Keppra - seizure precautions Anemia . Rpt CBC. Karen López MD November 15, 2017 14:50
[2017-11-15] MEDS: SODIUM CHLORIDE 23.4% INJ 38.5 MEQ in WATER STERILE FOR INJ 1,000 ML IV SCH (16:17)
[2017-11-15] MEDS ORDERED: VANCOMYCIN INJ 750 MG in SODIUM CHLOR 0.9% 250 ML INJ 250 ML IV SCH (18:00)
--- NOTE | 2017-11-15 18:45 | HHI.PR ---
Subjective Remarks Patient is off oxygen Hemoglobin dropped down to 7.0 As per RN report no melena or hematochezia Patient and rn state that she had yellow stool which was loose. Objective Vitals Vital Signs Date Time Temp Pulse Resp B/P (MAP) Pulse Ox O2 Delivery O2 Flow Rate FiO2 11/15/17 16:00 98.1 82 29 129/64 (85) 97 11/15/17 15:00 81 11/15/17 14:16 97.8 101 20 97/69 97 11/15/17 13:54 98.2 86 19 96/67 95 11/15/17 13:00 79 11/15/17 12:30 16 11/15/17 12:00 97.8 69 26 114/74 (87) 11/15/17 12:00 69 11/15/17 11:00 70 11/15/17 11:00 80 11/15/17 10:15 19 11/15/17 09:30 Room Air 11/15/17 09:05 98 11/15/17 09:00 75 11/15/17 08:00 98.1 74 14 94/54 (67) 11/15/17 07:00 68 11/15/17 07:00 Nasal Cannula 2.00 11/15/17 05:00 76 11/15/17 04:00 98.6 74 24 97/62 (74) 99 11/15/17 03:00 83 11/15/17 01:00 72 11/15/17 00:00 98.2 69 20 91/54 (66) 98 11/14/17 23:00 73 11/14/17 21:00 83 11/14/17 20:00 98.4 75 26 83/54 (64) 95 11/14/17 19:48 95 Nasal Cannula 1.00 I/O 11/14/17 11/14/17 11/14/17 11/15/17 11/15/17 11/15/17 07:00 15:00 23:00 07:00 15:00 23:00 Intake Total 590 ml 1859 ml 592 ml 1833.5 ml 20 ml Output Total 150 ml 700 ml Balance 590 ml 1859 ml 442 ml 1133.5 ml 20 ml Intake Oral 240 ml 390 ml 300 ml IV Total 350 ml 1469 ml 292 ml 1833.5 ml Blood Product IV Normal Saline Flush 20 ml Output Urine Total 150 ml 700 ml # Voids 3 2 2 # Bowel Movements 0 1 2 1 Result Diagram: 11/15/17 0409 11/15/179 Imaging Last Impressions Chest X-Ray 11/13/17 0000 Signed Impressions: Service Date/Time: Monday, November 13, 2017 14:27 - CONCLUSION: No significant interval change with patchy left lung base atelectasis again seen. Louie Hope MD Lower Extremity Ultrasound 11/11/17 0000 Signed Impressions: Service Date/Time: Saturday, November 11, 2017 19:06 - CONCLUSION: 1. Positive for nonocclusive deep venous thrombosis right common femoral vein. Negative left lower extremity DVT study. Dawson Lakhani MD Femur X-Ray 11/09/17 0000 Signed Impressions: Service Date/Time: Thursday, November 09, 2017 14:32 - CONCLUSION: 1. Intramedullary elliott in place on the right. Elliott appears in satisfactory position. 2. There is excellent alignment of the distal femur fracture. Nirav Birmingham MD CT Angiography 11/09/17 0000 Signed Impressions: Service Date/Time: Thursday, November 09, 2017 04:14 - CONCLUSION: 1. There is a very tiny, isolated pulmonary embolus to the upper lobe right pulmonary artery. Pulmonary artery is otherwise clear. 2. Patchy pleural-parenchymal and atelectasis/scarring in both hemithoraces, left than right. There is also small bilateral pleural effusions with concomitant atelectatic changes in the bases. 3. Dense atherosclerotic calcification of the coronary arteries. 4. Diffuse hepatic fatty infiltration Juno Conway MD Knee X-Ray 11/08/17 0000 Signed Impressions: Service Date/Time: Wednesday, November 08, 2017 10:03 - CONCLUSION: Spiral and mildly displaced fracture of the distal femur. Js Hunter MD Objective Remarks SKIN: Warm and dry. CARDIOVASCULAR: Regular rate and rhythm. RESPIRATORY: No accessory muscle use. Clear to auscultation. Breath sounds equal bilaterally. GASTROINTESTINAL: Abdomen soft, non-tender, nondistended. Hepatic and splenic margins not palpable. MUSCULOSKELETAL: CKS to right extremity, pulses palpable Procedures Right leg intramedullary nail fixation of supracondylar femur fracture. A/P Problem List: (1) Closed right femoral fracture ICD Code: S72.91XA - Unspecified fracture of right femur, initial encounter for closed fracture Status: Acute (2) Acute respiratory failure with hypoxia ICD Code: J96.01 - Acute respiratory failure with hypoxia Status: Acute (3) Pulmonary embolism ICD Code: I26.99 - Other pulmonary embolism without acute cor pulmonale Status: Acute (4) DVT (deep venous thrombosis) ICD Code: I82.409 - Acute embolism and thrombosis of unspecified deep veins of unspecified lower extremity Status: Acute (5) Hypotension ICD Code: I95.9 - Hypotension, unspecified Status: Acute (6) HTN (hypertension) ICD Code: I10 - Essential (primary) hypertension Status: Chronic (7) HLD (hyperlipidemia) ICD Code: E78.5 - Hyperlipidemia, unspecified Status: Chronic (8) Chronic a-fib ICD Code: I48.2 - Chronic atrial fibrillation Status: Chronic (9) Postoperative anemia due to acute blood loss ICD Code: D62 - Acute posthemorrhagic anemia Status: Acute (10) Alcohol abuse ICD Code: F10.10 - Alcohol abuse, uncomplicated Status: Chronic (11) Anemia ICD Code: D64.9 - Anemia, unspecified Plan: Chronic anemia with acute exacerbation. No obvious signs of bleeding. Transfuse 1 units of packed red blood cells ordered by night crew. Agree with management. Assessment and Plan Ms. Carbone is a 67 y/o female from [place] with a history of generalized weakness requiring an electric scooter for mobilization, hypothyroidism, seizure, atrial fibrillation not on anticoagulation, hypertension, hyperlipidemia, GERD, osteoporosis, and osteoarthritis who fell from a bed and landed on her right knee with subsequent severe pain. She was found to have a mildly displaced spiral fracture of distal femur. Suspected HCAP - New infiltrate on CXR - IV antibiotics as above - Iv Vanco, IV Zosyn - Duonebs as needed - Pulmonology consulted - appreciate recommendations. - 11/15 blood cultures negative 2. Discontinue vancomycin and IV Zosyn. Start on p.o. cefuroxime. Elevated Lactic Acid - Lactic acid elevated at 2.5. Place on IV fluids, monitor lactic acid. -11/14 lactic acid improved after IV fluid demonstration. Acute respiratory failure with hypoxia Pulmonary embolus. CT PA reviewed and shows a tj tiny pulmonary embolus to the upper lobe right pulmonary artery. - ABG with oxygen saturation 84 % pO2 52 on 2 liters via NC -Cont o2 -patient not in respiratory distress at any time -11/10 placed patient on eliquis 5mg BID for 90 days, instructed patients about follow up with PCP when they return to [place]. - 11/11 patient satting well on 2 L nasal cannula earlier today. However now patient's oxygen is dropping down to the low 80s on room air. Continue supplemental oxygen to keep oxygen saturation more than 92%, stat chest x-ray, suspect patient has fluid overload since the patient is getting of the IV fluid boluses and was started on IV fluids overnight. Will give Lasix 40 mg IV once. Discontinue IV fluids. Case discussed with RN. - 11/13 Patient is requiring more oxygen. CXR reviewed by me shows consolidation in the medial left lung base. start IV Vancomycin and Zosyn. Continue supplemental oxygen to keep o2 sat >92%. Consult pulmonology. Check BNP. Repeat CXR today. -11/14 repeat chest x-ray does show any significant interval change with patchy left lung base atelectasis again seen. Continue supplement oxygen to keep oxygen saturation more than 92%. Hypernatremia Mild hypernatremia. Sodium 146. Encourage oral intake of fluids. Monitor BMP. 11/15 sodium is slightly improved at 147. Will switch fluids to one fourth normal saline. Encourage oral intake of fluids. Sepsis/hypotension - Patient meets sepsis criteria with heart rate more than 90, PaO2 of less than 32 on ABG obtained on November 08 an elevated lactic acid. - IV antibiotics as above, check blood cultures, monitor lactic acid, IV fluids -Sepsis possibly secondary to UTI/pneumonia. UA positive. Urine culture pending. -UA concurrent with contaminants. DC IV antibiotics. Will start on p.o. cefuroxime. Atrial fibrillation - continuous cardiac telemetry to monitor for arrhythmia -Due to PE patient may benefit from life long anticoagulation -11/11 persistent chronic atrial fibrillation. Telemetry shows atrial fibrillation which is rate controlled. Continue diltiazem and digoxin. Hold beta-paty given concurrent hypotension. - 11/12 continue to hold beta-paty, continue diltiazem with holding parameters. -11/15 digoxin level within normal range. Heart rate controlled. Daily alcohol use of uncertain amount - will place on CIWA protocol - Thiamine, MVI IV -Withdraw precautions -11/11 no evidence of alcohol withdrawal. Seizures - continue home Keppra - seizure precautions - 11/11 no evidence of seizures. Pulmonary emboli -CT pulmonary angiogram showed a very tiny isolated pulmonary embolus to the upper lobe right of the pulmonary artery. It also showed a patchy pleural parenchymal atelectasis versus scarring in both endorses. Small bilateral pleural effusions with concomitant atelectatic changes in the bases. -Continue supplemental oxygen as needed. - Incentive spirometry. - Patient is on Apixaban 5 mg PO BID. Closed right femoral fracture - orthopedics consulted; patient seen by Dr. Gonzalez and is following - morphine/norco prn pain - PT recommended PT at rehab. DVT prophylaxis: Eliquis - SCDs/TEDs on unaffected extremity Discharge Planning Continue to monitor in the ICU. Patient receiving blood transfusion. Anticipate discharge in a.m. Problem Qualifiers (1) Closed right femoral fracture: Qualified Codes: S72.91XA - Unspecified fracture of right femur, initial encounter for closed fracture Erik Juarez MD November 15, 2017 18:45
[2017-11-15] MEDS: MIRTAZAPINE 15 MG TAB PO SCH (21:01)
[2017-11-15] MEDS: MELATONIN 5 MG TAB PO SCH (21:01)
[2017-11-15] MEDS: buPROPion HCL 100 MG TAB PO SCH (21:02)
[2017-11-15] MEDS: CEFUROXIME AXETIL 500 MG TAB PO SCH (21:10)
[2017-11-16] VITALS (8 sets, daily range): BP systolic 85–106; BP diastolic 49–73; PULSE 70–97; RESP 16–24; TEMP 98–98.7; O2SAT 92–97
[2017-11-16] MEDS: RESP: ALBUTEROL 1.25 MG/3 ML NEB (SCH) NEB ×2 (04:00→09:51)
[2017-11-16 05:05] LABS: HEMATOCRIT 30.5 % (35.0-46.0); HEMOGLOBIN 10.4 GM/DL (11.6-15.3); MEAN CELL VOLUME 99.1 FL (80.0-100.0); MEAN CORPUSCULAR HEMOGLOBIN 33.7 PG (27.0-34.0); MEAN PLATELET VOLUME 9.2 FL (7.0-11.0); PLATELET COUNT 209 TH/MM3 (150-450); RED BLOOD COUNT 3.07 MIL/MM3 (4.00-5.30); RED CELL DISTRIBUTION WIDTH 17.8 % (11.6-17.2); WHITE BLOOD COUNT 5.4 TH/MM3 (4.0-11.0)
[2017-11-16] MEDS: MIDODRINE 5 MG TAB PO SCH ×2 (05:28→13:42)
[2017-11-16] MEDS: LEVOTHYROXINE SODIUM 75 MCG TAB PO SCH (05:28)
[2017-11-16] MEDS: SODIUM CHLORIDE 23.4% INJ 38.5 MEQ in WATER STERILE FOR INJ 1,000 ML IV SCH (05:28)
[2017-11-16] MEDS: ENOXAPARIN SODIUM 60 MG/0.6 ML SYRINGE SQ SCH (05:28)
[2017-11-16] MEDS: DILTIAZEM HCL 60 MG TAB PO SCH ×2 (05:28→13:43)
[2017-11-16] MEDS: SODIUM CHLORIDE 0.9% FLUSH 10 ML FLUSH IV FLUSH SCH (09:00)
[2017-11-16] MEDS: DOCUSATE SODIUM 50 MG/SENNA 8.6 MG TAB PO SCH (09:00)
[2017-11-16] MEDS: CEFUROXIME AXETIL 500 MG TAB PO SCH (09:30)
[2017-11-16] MEDS: DIGOXIN 0.125 MG TAB PO SCH (09:31)
[2017-11-16] MEDS: KETOROLAC TROMETHAMINE 10 MG TAB PO PRN (09:31)
[2017-11-16] MEDS: THIAMINE HCL 100 MG TAB PO SCH (09:31)
[2017-11-16] MEDS: ATORVASTATIN 40 MG TAB PO SCH (09:32)
[2017-11-16] MEDS: MULTIVITAMINS/MINERALS THERAPEUTIC TAB PO SCH (09:32)
[2017-11-16] MEDS: PANTOPRAZOLE SOD 40 MG DELAYED RELEASE TAB PO SCH (09:32)
[2017-11-16] MEDS: levETIRAcetam 500 MG TAB PO SCH (09:32)
--- NOTE | 2017-11-16 12:12 | HHI.DCPOC ---
Discharge Care Plan Diagnosis: (1) Closed right femoral fracture (2) GERD (gastroesophageal reflux disease) (3) Frequent falls (4) Acute respiratory failure with hypoxia (5) Impaired mobility and activities of daily living (6) History of seizure (7) DVT (deep venous thrombosis) (8) Pulmonary embolism (9) Hypotension (10) HTN (hypertension) (11) HLD (hyperlipidemia) (12) Chronic a-fib (13) Postoperative anemia due to acute blood loss (14) Anemia (15) Alcohol abuse Goals to Promote Your Health * To prevent worsening of your condition and complications * To maintain your health at the optimal level Directions to Meet Your Goals Take your medications as prescribed Follow your dietary instruction Follow activity as directed Keep your appointments as scheduled Take your immunizations and boosters as scheduled If your symptoms worsen call your PCP, if no PCP go to Urgent Care Center or Emergency Room Smoking is Dangerous to Your Health. Avoid second hand smoke Call the 24-hour hour crisis hotline for domestic abuse at Erik Juarez MD November 16, 2017 12:12
[2017-11-16] MEDS ORDERED: APIX5TAB PO ×3 (12:14→12:33)
--- NOTE | 2017-11-16 12:16 | HHI.DS ---
Discharge Summary Admission Date November 08, 2017 at 11:21 Discharge Date: November 16, 2017 Admitting Diagnosis Closed femur fracture (1) Closed right femoral fracture ICD Code: S72.91XA - Unspecified fracture of right femur, initial encounter for closed fracture Status: Acute (2) Acute respiratory failure with hypoxia ICD Code: J96.01 - Acute respiratory failure with hypoxia Status: Acute (3) Pulmonary embolism ICD Code: I26.99 - Other pulmonary embolism without acute cor pulmonale Status: Acute (4) DVT (deep venous thrombosis) ICD Code: I82.409 - Acute embolism and thrombosis of unspecified deep veins of unspecified lower extremity Status: Acute (5) Hypotension ICD Code: I95.9 - Hypotension, unspecified Status: Acute (6) HTN (hypertension) ICD Code: I10 - Essential (primary) hypertension Status: Chronic (7) HLD (hyperlipidemia) ICD Code: E78.5 - Hyperlipidemia, unspecified Status: Chronic (8) Chronic a-fib ICD Code: I48.2 - Chronic atrial fibrillation Status: Chronic (9) Postoperative anemia due to acute blood loss ICD Code: D62 - Acute posthemorrhagic anemia Status: Acute (10) Alcohol abuse ICD Code: F10.10 - Alcohol abuse, uncomplicated Status: Chronic (11) Anemia ICD Code: D64.9 - Anemia, unspecified Procedures Right leg intramedullary nail fixation of supracondylar femur fracture. Brief History - From Admission Ms. Carbone is a 67 y/o female from [place] with a history of generalized weakness requiring an electric scooter for mobilization, hypothyroidism, seizure, atrial fibrillation not on anticoagulation, hypertension, hyperlipidemia, GERD, osteoporosis, and osteoarthritis who fell from a bed and landed on her right knee with subsequent severe pain. She was found to have a mildly displaced spiral fracture of distal femur. The patient is seen in her hospital room. She reports adequate pain relief to right knee with current medications. She states the current pain is about 4-5/ 10. Pain is worsened by any knee movement. She denies any loc, chest pain, sob , syncope, dizziness prior to fall out of bed. Denies any recent illnesses. She reports generalized weakness for the past few years requiring use of an electric scooter for mobility. She states she is able to stand and bear weight but cannot move around due to weakness. She is unable to tell me what caused this weakness. CBC/BMP: 11/16/17 0411 11/15/17 0409 Significant Findings Laboratory Tests Test 11/13/17 13:34 11/14/17 00:53 11/14/17 05:39 11/15/17 01:00 Red Blood Count 2.72 MIL/MM3 (4.00-5.30) 2.35 MIL/MM3 (4.00-5.30) Hemoglobin 9.6 GM/DL (11.6-15.3) 8.1 GM/DL (11.6-15.3) Hematocrit 27.6 % (35.0-46.0) 24.1 % (35.0-46.0) Mean Corpuscular Volume 101.5 FL (80.0-100.0) 102.5 FL (80.0-100.0) Mean Corpuscular Hemoglobin 35.2 PG (27.0-34.0) 34.4 PG (27.0-34.0) Neutrophils % (Manual) 72 % (16-70) Metamyelocytes 2 % (0-1) Myelocytes 1 % (0-0) Total Protein 4.1 GM/DL (6.4-8.2) 3.3 GM/DL (6.4-8.2) Albumin 1.8 GM/DL (3.4-5.0) 1.4 GM/DL (3.4-5.0) Calcium Level 7.7 MG/DL (8.5-10.1) 7.6 MG/DL (8.5-10.1) Alkaline Phosphatase 220 U/L (45-117) 179 U/L (45-117) Sodium Level 146 MEQ/L (136-145) 148 MEQ/L (136-145) Chloride Level 115 MEQ/L (98-107) 118 MEQ/L (98-107) Estimat Glomerular Filtration Rate 81 ML/MIN (>89) Lactic Acid Level 3.1 mmol/L (0.4-2.0) B-Type Natriuretic Peptide 168 PG/ML (0-100) Urine Leukocyte Esterase LARGE (NEG) Urine RBC 4 /hpf (0-3) Urine WBC 57 /hpf (0-5) Urine Mucus FEW /lpf (OCC) Random Glucose 69 MG/DL (74-106) Alanine Aminotransferase (ALT/SGPT) 9 U/L (10-53) Vancomycin Level Trough 22.9 MCG/ML (5.0-10.0) Test 11/15/17 04:09 11/16/17 04:11 Red Blood Count 2.02 MIL/MM3 (4.00-5.30) 3.07 MIL/MM3 (4.00-5.30) Hemoglobin 7.0 GM/DL (11.6-15.3) 10.4 GM/DL (11.6-15.3) Hematocrit 20.7 % (35.0-46.0) 30.5 % (35.0-46.0) Mean Corpuscular Volume 102.5 FL (80.0-100.0) Mean Corpuscular Hemoglobin 34.4 PG (27.0-34.0) Monocytes (%) (Auto) 8.9 % (0.0-8.0) Random Glucose 61 MG/DL (74-106) Total Protein 3.2 GM/DL (6.4-8.2) Albumin 1.4 GM/DL (3.4-5.0) Calcium Level 7.2 MG/DL (8.5-10.1) Alkaline Phosphatase 140 U/L (45-117) Sodium Level 147 MEQ/L (136-145) Chloride Level 120 MEQ/L (98-107) Red Cell Distribution Width 17.8 % (11.6-17.2) Imaging Last Impressions Chest X-Ray 11/13/17 0000 Signed Impressions: Service Date/Time: Monday, November 13, 2017 14:27 - CONCLUSION: No significant interval change with patchy left lung base atelectasis again seen. Louie Hope MD Lower Extremity Ultrasound 11/11/17 0000 Signed Impressions: Service Date/Time: Saturday, November 11, 2017 19:06 - CONCLUSION: 1. Positive for nonocclusive deep venous thrombosis right common femoral vein. Negative left lower extremity DVT study. Dawson Lakhani MD Femur X-Ray 11/09/17 0000 Signed Impressions: Service Date/Time: Thursday, November 09, 2017 14:32 - CONCLUSION: 1. Intramedullary elliott in place on the right. Elliott appears in satisfactory position. 2. There is excellent alignment of the distal femur fracture. Nirav Birmingham MD CT Angiography 11/09/17 0000 Signed Impressions: Service Date/Time: Thursday, November 09, 2017 04:14 - CONCLUSION: 1. There is a very tiny, isolated pulmonary embolus to the upper lobe right pulmonary artery. Pulmonary artery is otherwise clear. 2. Patchy pleural-parenchymal and atelectasis/scarring in both hemithoraces, left than right. There is also small bilateral pleural effusions with concomitant atelectatic changes in the bases. 3. Dense atherosclerotic calcification of the coronary arteries. 4. Diffuse hepatic fatty infiltration Juno Conway MD Knee X-Ray 11/08/17 0000 Signed Impressions: Service Date/Time: Wednesday, November 08, 2017 10:03 - CONCLUSION: Spiral and mildly displaced fracture of the distal femur. Js Hunter MD PE at Discharge SKIN: Warm and dry. CARDIOVASCULAR: Regular rate and rhythm. RESPIRATORY: No accessory muscle use. Clear to auscultation. Breath sounds equal bilaterally. GASTROINTESTINAL: Abdomen soft, non-tender, nondistended. Hepatic and splenic margins not palpable. MUSCULOSKELETAL: CKS to right extremity, pulses palpable Pt Condition on Discharge: Stable Discharge Disposition: Rehab Inpatient Discharge Time: > 30 minutes Discharge Instructions DIET: Follow Instructions for: As Tolerated, No Restrictions Activities you can perform: See Additionl Instruction Activities to Avoid: Lifting/Bending, Strenuous Activity Other Activity Instructions: As per PT instructions Follow up Referrals: Orthopedics with Andry Gonzalez MD New Medications: Apixaban (Eliquis) 5 Mg Tab 10 MG PO BID for Blood Clot Prevention, #14 TAB 0 Refills Commode 3-in-1 (Commode 3-in-1) 1 Mis Mis EA .XX DIRECTED, #1 0 Refills Hydrocodone-Acetaminophen ([place]) 5 Mg-325 Mg Tab 1-2 TAB PO Q4H PRN for PAIN, #50 TAB 0 Refills Walker with Front Wheels (Walker with Front Wheels) 1 Mis Mis EA .XX DIRECTED, #1 0 Refills Apixaban (Eliquis) 5 Mg Tab 5 MG PO BID for Blood Clot Prevention for 90 Days, #180 TAB Start after patient takes 7 days of Apixaban 10 mg BID dose - start 11/23/17 Continued Medications: B-Complex Vitamins (Vitamin B Complex) 1 Tab 1 TAB PO DAILY Bupropion HCl (Bupropion HCl) 100 Mg Tab 150 MG PO BID for Control Depression, TAB 0 Refills Calcitonin ([place]) Nasal [place] (Calcitonin ([place]) Nasal [place]) 200 Units/Act Soln 1 SPRAY NASAL DAILY for Osteoporosis, #3.7 ML 0 Refills Alternate nostrils daily. Cholecalciferol (Vitamin D3) 1,000 Unit Cap 1000 UNITS DAILY for Nutritional Supplement, #1 BOTTLE 0 Refills Digoxin (Digoxin) 0.125 Mg Tab 0.125 MG PO DAILY for Regulate Heart Beat, #30 TAB 0 Refills Diltiazem (Diltiazem) 60 Mg Tab 60 MG PO TID for Angina, #120 TAB 0 Refills Levetiracetam (Levetiracetam) 500 Mg Tab 500 MG PO BID for Control Seizures, #60 TAB 0 Refills Levothyroxine (Levothyroxine) 75 Mcg Tab 75 MCG PO DAILY for Thyroid, #30 TAB 0 Refills Melatonin (Melatonin) 5 Mg Tab 6 MG PO HS for Provide Good Sleep, TAB 0 Refills Metoprolol Tartrate (Metoprolol Tartrate) 25 Mg Tab 12.5 MG PO BID, #60 TAB 0 Refills Mirtazapine (Mirtazapine) 15 Mg Tab 15 MG PO HS for Depression Control, #30 TAB 0 Refills Multiple Vitamin (Multiple Vitamin) 1 Tab 1 TAB PO DAILY for Nutritional Supplement, TAB 0 Refills Omeprazole (Omeprazole) 40 Mg Cap 40 MG PO DAILY, #30 CAP 0 Refills Potassium Chloride ER (Potassium Chloride ER) 20 Meq Tab 20 MEQ PO BID for Electrolyte Replacement, #60 TAB 0 Refills Rosuvastatin (Rosuvastatin) 20 Mg Tab 20 MG PO DAILY for Cholesterol Management, #30 TAB 0 Refills Discontinued Medications: Aspirin DR (Aspirin 81) 81 Mg Tabdr 81 MG PO DAILY, TAB 0 Refills Erik Juarez MD November 16, 2017 12:16
--- NOTE | 2017-11-16 12:26 | HHI.PR ---
Subjective Remarks Patient doing better. Off O2.sat 97. Off Lovenox .. Will go to rehab. Objective Vital Signs Date Time Temp Pulse Resp B/P (MAP) Pulse Ox O2 Delivery O2 Flow Rate FiO2 11/16/17 08:00 98.0 70 16 106/59 (75) 92 11/16/17 06:52 98.1 74 16 100/73 (82) 94 11/16/17 05:00 80 11/16/17 04:00 98.7 80 24 86/51 (63) 97 11/16/17 03:00 97 11/16/17 01:00 71 11/16/17 00:00 98.7 70 17 85/49 (61) 97 11/15/17 23:00 78 11/15/17 21:35 91 21 11/15/17 21:00 86 11/15/17 20:00 98.6 66 16 87/53 (64) 98 11/15/17 19:00 98 Room Air 11/15/17 19:00 66 11/15/17 17:45 98.3 67 22 116/55 98 11/15/17 17:00 67 11/15/17 16:00 98.1 82 29 129/64 (85) 97 11/15/17 15:00 81 11/15/17 14:16 97.8 101 20 97/69 97 11/15/17 13:54 98.2 86 19 96/67 95 11/15/17 13:00 79 11/15/17 12:30 16 I/O 11/15/17 11/15/17 11/15/17 11/16/17 11/16/17 11/16/17 07:00 15:00 23:00 07:00 15:00 23:00 Intake Total 1833.5 ml 20 ml 850 ml 1465 ml Output Total 700 ml 650 ml 700 ml Balance 1133.5 ml 20 ml 200 ml 765 ml Intake Oral 480 ml IV Total 1833.5 ml 985 ml Packed Cells 800 ml Blood Product IV Normal Saline Flush 20 ml 50 ml Output Urine Total 700 ml 650 ml 700 ml # Bowel Movements 1 2 0 Result Diagram: 11/16/17 0411 11/15/17 0409 Objective Remarks GENERAL: This is a well-nourished, well-developed patient, in no apparent distress. CARDIOVASCULAR: Irregular rate and without murmurs, gallops, or rubs. RESPIRATORY: Diffuse expiratory wheezes, diminished breath sounds bilaterally. GASTROINTESTINAL: Abdomen soft, non-tender,nondistended. Normal active bowel sounds MUSCULOSKELETAL: Extremities without clubbing, cyanosis, or edema.Has a cast and dressing of the Right knee. NEURO: Alert & Oriented x4 to person, place, time, situation. Moves all ext x4 Skin: No lesions. Assessment and Plan Assessment and Plan Closed right femoral fracture S/P ORIF Acute respiratory failure with hypoxia, resolved. D/C O2 Pulmonary Emboli. D/C lovenox , Add Eliquis 10 mg BID X 5 days and then 5 mg bid. DVT Right femoral. Cont Eliquis PO Atrial fibrillation - continue home metoprolol,dig and diltiazem. Seizures - continue home Keppra - seizure precautions Transfer to rehab. Karen López MD November 16, 2017 12:26
[2017-11-16] MEDS ORDERED: CEFU1TAB20 PO (12:33)
[2017-11-16 13:14] LABS: BICARBONATE 20.4 MEQ/L (21.0-32.0); CALCIUM 8.2 MG/DL (8.5-10.1); CREATININE 0.64 MG/DL (0.50-1.00)
[2017-11-16] MEDS: buPROPion HCL 100 MG TAB PO SCH (13:46)
[2017-11-16] MEDS ORDERED: APIXABAN 5 MG TABLET PO SCH (18:00)
--- NOTE | 2017-11-16 19:57 | ECHRPT ---
Indication: Respiratory Failure CONCLUSIONS The left ventricular systolic function is normal with an estimated ejection fraction in the range of 55-60%. Wall thickness is normal. Normal left ventricular size. Mild mitral regurgitation. Trace aortic valve regurgitation. There is mild tricuspid valve regurgitation. The estimated pulmonary arterial pressure is 36 mmHg. BP: 99 / 58 HR: 76 Rhythm: Sinus MEASUREMENTS (Male / Female) Normal Values Technical Quality:Fair 2D ECHO LV Diastolic Diameter PLAX 2.9 cm 4.2 - 5.9 / 3.9 - 5.3 cm LV Systolic Diameter PLAX 2.3 cm IVS Diastolic Thickness 1.0 cm 0.6 - 1.0 / 0.6 - 0.9 cm LVPW Diastolic Thickness 1.0 cm 0.6 - 1.0 / 0.6 - 0.9 cm LV Relative Wall Thickness 0.7 LVOT Diameter 2.0 cm M-MODE Aortic Root Diameter MM 3.7 cm LA Systolic Diameter MM 4.3 cm LA Ao Ratio MM 1.2 AV Cusp Separation MM 2.2 cm DOPPLER AV Peak Velocity 139.0 cm/s AV Peak Gradient 7.7 mmHg AI Peak Velocity 362.0 cm/s AI Peak Gradient 52.4 mmHg AI Pressure Half Time 584.0 ms LVOT Peak Velocity 94.3 cm/s LVOT Peak Gradient 3.6 mmHg AV Area Cont Eq pk 2.1 cm MR Peak Velocity 425.5 cm/s MR Peak Gradient 72.4 mmHg LV E' Lateral Velocity 9.9 cm/s LV E' Septal Velocity 5.9 cm/s TR Peak Velocity 256.0 cm/s TR Peak Gradient 26.2 mmHg Right Atrial Pressure 10.0 mmHg Pulmonary Artery Systolic Pressu 36.2 mmHg Right Ventricular Systolic Press 36.2 mmHg PV Peak Velocity 95.0 cm/s PV Peak Gradient 3.6 mmHg FINDINGS LEFT VENTRICLE The left ventricular systolic function is normal with an estimated ejection fraction in the range of 55-60%. Wall thickness is normal. Normal left ventricular size. RIGHT VENTRICLE Normal right ventricular size and systolic function. LEFT ATRIUM The left atrial size is normal. RIGHT ATRIUM The right atrial size is normal. ATRIAL SEPTUM Normal atrial septal thickness without atrial level shunting by limited color doppler interrogation. AORTA The aortic root and proximal ascending aorta are normal in size on limited imaging. MITRAL VALVE Structurally normal mitral valve. No mitral valve stenosis, mild MR. AORTIC VALVE Trace aortic valve regurgitation. TRICUSPID VALVE There is mild tricuspid valve regurgitation. The estimated pulmonary arterial pressure is 36.2 mmHg. PULMONARY VALVE No pulmonary valve regurgitation or stenosis. VESSELS The inferior vena cava is normal in size. PERICARDIUM No pericardial effusion. Camilo Lynch MD, FACC (Electronically Signed) Final Date:16 Nov 2017 19:56
[2017-11-17] MEDS ORDERED: PHARMACY ORDERED LAB ONE (23:45)
== END 2017-11-16 15:15 | DRG 480 ==
LOC: PHEFT 09:55 → PHEDA 11:21 → N06B 15:49 → N06A 11-09 21:08 → N03B 11-13 17:42 → N07A 11-16 06:39
PROVIDERS: ADMIT Hospitalist; ATTEND Hospitalist
PROC: 0MCN0ZZ Extirpation of Matter from Right Knee Bursa and Ligament, Open Approach (ICD-10-PCS; 2017-11-09)
PROC: 0QSB06Z Reposition Right Lower Femur with Intramedullary Internal Fixation Device, Open Approach (ICD-10-PCS; principal; 2017-11-09 13:13)
PROC: 30233N1 Transfusion of Nonautologous Red Blood Cells into Peripheral Vein, Percutaneous Approach (ICD-10-PCS; 2017-11-15)
DX: S72.451A Displaced supracondylar fracture without intracondylar extension of lower end of right femur, initial encounter for closed fracture (principal); A41.9 Sepsis, unspecified organism; I26.99 Other pulmonary embolism without acute cor pulmonale; J96.01 Acute respiratory failure with hypoxia; J18.9 Pneumonia, unspecified organism; I82.411 Acute embolism and thrombosis of right femoral vein; J98.11 Atelectasis; I48.1 Persistent atrial fibrillation; D62 Acute posthemorrhagic anemia; E87.0 Hyperosmolality and hypernatremia; W06.XXXA Fall from bed, initial encounter; E78.5 Hyperlipidemia, unspecified; I10 Essential (primary) hypertension; E03.9 Hypothyroidism, unspecified; M19.90 Unspecified osteoarthritis, unspecified site; K21.9 Gastro-esophageal reflux disease without esophagitis; M81.0 Age-related osteoporosis without current pathological fracture; Z96.642 Presence of left artificial hip joint; R29.6 Repeated falls; G40.909 Epilepsy, unspecified, not intractable, without status epilepticus; R26.9 Unspecified abnormalities of gait and mobility; I95.2 Hypotension due to drugs; F10.10 Alcohol abuse, uncomplicated; F32.9 Major depressive disorder, single episode, unspecified; E87.70 Fluid overload, unspecified; T41.205A Adverse effect of unspecified general anesthetics, initial encounter; Y95 Nosocomial condition; Z86.718 Personal history of other venous thrombosis and embolism; Z86.711 Personal history of pulmonary embolism; Z79.82 Long term (current) use of aspirin; Z98.84 Bariatric surgery status; Y92.003 Bedroom of unspecified non-institutional (private) residence as the place of occurrence of the external cause
CPT/HCPCS: 36430; 36600; 71045; 71275; 73552; 73564; 76000; 76937; 80048; 80053; 80162; 80202; 81001; 82805; 82948; 83605; 83735; 83880; 84100; 84155; 85007; 85025; 85027; 85379; 85610; 85730; 86850; 86900; 86901; 86920; 87040; 87086; 93005; 93306; 93970; 94150; 94640; 94664; 99285; C1713; C1769; J0690; J1100; J1580; J1650; J1940; J2060; J2270; J2370; J2405; J2543; J2710; J3010; J3370; J3411; J7030; J7040; J7050; J7070; J7120; J7613; L1830; P9016; P9047; Q9967

== ENCOUNTER 2017-12-11 04:02 | Inpatient (IN) | payer MEDICARE, BC ==
[~2017-12-11] VITALS: Ht 149.9 cm; Wt 53.9 kg
[2017-12-11] VITALS (13 sets, daily range): BP systolic 96–107; BP diastolic 58–68; PULSE 67–88; RESP 14–20; TEMP 98.3–98.7; O2SAT 93–100
[~2017-12-11 04:02] MED LIST: APIX5TAB PO; ATOR40TA16 PO; BUPR100T4 PO; CALC200S NASAL; CEFU1TAB20 PO; CHOL1000 PO; CHOL10008; COMMODE 3-IN-11 MIS; DIGO0.12 PO; DILT120C50 PO; DILT60TA PO; HYDR-3516 PO; LEVE500 PO; LEVE500T8 PO; LEVO.075 PO; LEVO75TA3 PO; MELA5 PO; METO25TA3 PO; MIRTA15 PO; MULTTAB67 PO; NEPHRO PO; PANT40TA3 PO; POTA-163 PO; THERTAB15 PO; VITATAB11 PO; WALKER WHEELS/F1 MIS
[2017-12-11] MEDS ORDERED: OMEP20TA93 PO (04:27)
[2017-12-11] MEDS ORDERED: ZINC220T PO (04:27)
[2017-12-11] MEDS ORDERED: FERR325T18 PO (04:27)
--- NOTE | 2017-12-11 04:46 | PD ---
HPI Chief Complaint: GI Complaint Time Seen by Provider: 04:41 Travel History International Travel<30 days: No Contact w/Intl Traveler<30days: No Traveled to known affect area: No History of Present Illness HPI 67-year-old female presents to the emergency department for evaluation of rectal bleeding. According the patient 11/08/17 she was evaluated for a distal femur fracture of the right lower extremity. Patient underwent surgical repair. Patient was placed on Eliquis postoperatively. Patient's had no bleeding issues. Today it was noted after her evening dose of Eliquis that she had a clot in her stool and then a subsequent clot was noted so she was sent to the emergency room for evaluation. Patient denies any shortness of breath sweats near syncope or syncope and denies any pain. Patient also has history of atrial fibrillation but has not been on anticoagulation for her atrial fibrillation history. Patient denies other concerns or complaints. PFSH Past Medical History Narrative Medical Atrial fibrillation dyslipidemia CVA femur fracture repair depression hypertension seizure hypothyroidism herniorrhaphy gastric bypass Arthritis: No Asthma: No Atrial Fibrillation: Yes Autoimmune Disease: No Anxiety: No Depression: Yes (Mild depression) Heart Rhythm Problems: Yes (A fib) Cancer: No Cardiovascular Problems: Yes High Cholesterol: Yes (Hyperlipidemia) Chemotherapy: No Chest Pain: No Congestive Heart Failure: No COPD: No Cerebrovascular Accident: Yes (Mild stroke, right arm weakness) Diabetes: No Diminished Hearing: No Endocrine: Yes GERD: No Genitourinary: Yes Hiatal Hernia: Yes (Hernia repair 13 years ago) Hypertension: Yes (Hyper and hypotension) Immune Disorder: No Implanted Vascular Access Dvce: Yes Kidney Stones: Yes Musculoskeletal: Yes Neurologic: Yes Psychiatric: Yes Reproductive: No Respiratory: No Migraines: No Radiation Therapy: No Renal Failure: No Seizures: Yes (four or five seizures 2 years ago) Sickle Cell Disease: No Sleep Apnea: No Thyroid Disease: Yes (Hypothyroidism) Ulcer: No ?: Not Past Surgical History Abdominal Surgery: Yes (Hernia repair 13 years ago, Gastric bypass 12 years ago ) AICD: No Arteriovenous Shunt: No Cardiac Surgery: No Ear Surgery: No Eye Surgery: Yes (Bilateral cataracts) Genitourinary Surgery: No Gynecologic Surgery: No Insulin Pump: No Joint Replacement: Yes (Left hip replacement, right ankle repair) Oral Surgery: Yes (Full dentures last year, tonsillectomy) Pacemaker: No Thoracic Surgery: No Other Surgery: Yes Social History Alcohol Use: No Tobacco Use: No Substance Use: No Allergies-Medications (Allergen,Severity, Reaction): Coded Allergies: No Known Allergies (Unverified , 11/16/17) Reported Meds & Prescriptions Reported Meds & Active Scripts Active Hydrocodone-Acetamin 5-325 mg (Hydrocodone/Acetaminophen) 5 Mg-325 Mg Tablet 1 Tab PO Q6HR PRN Nephro-Adria Rx (Vitamin B Cmplx/Vit C/Folic AC) 1 Tab 1 Cap PO DAILY 30 Days Diltiazem CD 24 HR 120 Mg Caper 120 Mg PO DAILY 30 Days Atorvastatin (Atorvastatin Calcium) 40 Mg Tab 40 Mg PO HS 30 Days Eliquis (Apixaban) 5 Mg Tab 5 Mg PO BID 90 Days Start after patient takes 5 days of Apixaban 10 mg BID dose - start 11/23/17. Walker with Front Wheels (Device) 1 Mis Mis Ea .XX DIRECTED Commode 3-in-1 (Device) 1 Mis Mis Ea .XX DIRECTED Reported Ferrous Sulfate 325 Mg (65 Mg Iron) Tablet 325 Mg PO BIDPC Zinc Sulfate 220 Mg Tab 220 Mg PO DAILY Omeprazole 20 Mg Tab 20 Mg PO DAILY Bupropion HCl 100 Mg Tab 150 Mg PO BID Metoprolol Tartrate 25 Mg Tab 12.5 Mg PO BID Levetiracetam 500 Mg Tab 500 Mg PO BID Vitamin B Complex (B-Complex Vitamins) 1 Tab 1 Tab PO DAILY Multiple Vitamin 1 Tab 1 Tab PO DAILY Mirtazapine 15 Mg Tab 15 Mg PO HS Melatonin 5 Mg Tab 6 Mg PO HS Levothyroxine (Levothyroxine Sodium) 75 Mcg Tab 75 Mcg PO DAILY Digoxin 0.125 Mg Tab 0.125 Mg PO DAILY Vitamin D3 (Cholecalciferol) 1,000 Unit Cap 1,000 Units DAILY Calcitonin (Buchtel) Nasal [place] (Calcitonin [place]) 200 Units/Act Soln 1 [place] NASAL DAILY Alternate nostrils daily. Review of Systems Except as stated in HPI: all other systems reviewed are Neg General / Constitutional: No: Fever, Chills HENT: No: Congestion Cardiovascular: No: Chest Pain or Discomfort Gastrointestinal: Positive: Hematochezia, No: Nausea, Vomiting, Diarrhea, Abdominal Pain Genitourinary: No: Dysuria Musculoskeletal: No: Myalgias, Arthralgias Skin: No Rash Neurologic: No: Weakness, Dizziness, Syncope, Focal Abnormalities, Coordination Problem Psychiatric: No: Anxiety Hematologic/Lymphatic: Positive: Easy Bruising Physical Exam Narrative GENERAL: Well-developed elderly female in no acute distress no respiratory distress SKIN: Warm and dry. Pallor. HEAD: Normocephalic. EYES: No scleral icterus. No injection or drainage. NECK: Supple, trachea midline. No JVD or lymphadenopathy. CARDIOVASCULAR: Regular rate and rhythm without murmurs, gallops, or rubs. RESPIRATORY: Breath sounds equal bilaterally. No accessory muscle use. GASTROINTESTINAL: Abdomen soft, non-tender, nondistended. Rectal exam maroon blood on exam glove Hemoccult positive MUSCULOSKELETAL: No cyanosis, or edema. Right lower extremity with pin and brace in place BACK: Nontender without obvious deformity. No CVA tenderness. Data Data Last Documented VS Vital Signs Date Time Temp Pulse Resp B/P (MAP) Pulse Ox O2 Delivery O2 Flow Rate FiO2 12/11/17 05:56 71 16 98/61 (73) 100 Room Air 12/11/17 04:10 98.4 Orders Orders Basic Metabolic Panel (Bmp) (12/11/17 04:46) Complete Blood Count With Diff (12/11/17 04:46) Ammonia (12/11/17 04:46) Prothrombin Time / Inr (Pt) (12/11/17 04:46) Act Partial Throm Time (Ptt) (12/11/17 04:46) Type And Screen (12/11/17 04:46) Ecg Monitoring (12/11/17 04:46) Iv Access Insert/Monitor (12/11/17 04:46) Oximetry (12/11/17 04:46) Sodium Chloride 0.9% Flush (Ns Flush) (12/11/17 05:00) Red Blood Cells (Rbc) (12/11/17 04:46) Blood Product Administration (12/11/17 04:46) Sodium Chlor 0.9% 250 Ml Inj (Ns 250 Ml (12/11/17 05:00) ^ Lab Follow Up (12/11/17 04:49) Sodium Chlorid 0.9% 500 Ml Inj (Ns 500 M (12/11/17 06:30) Sodium Chlorid 0.9% 500 Ml Inj (Ns 500 M (12/11/17 06:30) ^ Lab Follow Up (12/11/17 06:21) Prothrombin Complex Conc Inj (Kcentra In (12/11/17 06:30) Labs Laboratory Tests Test 12/11/17 05:00 12/11/17 05:05 White Blood Count 8.9 TH/MM3 Red Blood Count 3.62 MIL/MM3 Hemoglobin 12.1 GM/DL Hematocrit 36.0 % Mean Corpuscular Volume 99.5 FL Mean Corpuscular Hemoglobin 33.5 PG Mean Corpuscular Hemoglobin Concent 33.7 % Red Cell Distribution Width 15.7 % Platelet Count 292 TH/MM3 Mean Platelet Volume 10.2 FL Neutrophils (%) (Auto) 68.2 % Lymphocytes (%) (Auto) 24.1 % Monocytes (%) (Auto) 4.4 % Eosinophils (%) (Auto) 2.9 % Basophils (%) (Auto) 0.4 % Neutrophils # (Auto) 6.0 TH/MM3 Lymphocytes # (Auto) 2.1 TH/MM3 Monocytes # (Auto) 0.4 TH/MM3 Eosinophils # (Auto) 0.3 TH/MM3 Basophils # (Auto) 0.0 TH/MM3 CBC Comment DIFF FINAL Differential Comment Prothrombin Time 17.4 SEC Prothromb Time International Ratio 1.7 RATIO Activated Partial Thromboplast Time 43.5 SEC Blood Urea Nitrogen 14 MG/DL Creatinine 0.57 MG/DL Random Glucose 52 MG/DL Calcium Level 8.1 MG/DL Sodium Level 143 MEQ/L Potassium Level 4.8 MEQ/L Chloride Level 108 MEQ/L Carbon Dioxide Level 24.9 MEQ/L Anion Gap 10 MEQ/L Estimat Glomerular Filtration Rate 106 ML/MIN Ammonia 13 MCMOL/L [facility] Medical Decision Making Medical Screen Exam Complete: Yes Emergency Medical Condition: Yes Medical Record Reviewed: Yes Differential Diagnosis Upper GI bleed lower GI bleed coagulopathy anemia Narrative Course IV access obtained specimens collected and sent for resulting patient given Protonix with Protonix infusion Last dose of Eliquis 9 PM 12/10/17 Diagnosis Primary Impression: GI bleed Sully Cassidy MD Dec 11, 2017 04:46
[2017-12-11] MEDS ORDERED: SODIUM CHLORIDE 0.9% FLUSH 10 ML FLUSH IVF PRN (05:00)
[2017-12-11] MEDS ORDERED: SODIUM CHLOR 0.9% 250 ML INJ 250 ML IV ONE (05:00)
[2017-12-11 05:24] LABS: BASOPHIL % 0.4 % (0.0-2.0); EOSINOPHIL # 0.3 TH/MM3 (0-0.4); EOSINOPHIL % 2.9 % (0.0-4.0); HEMOGLOBIN 12.1 GM/DL (11.6-15.3); LYMPH % 24.1 % (9.0-44.0); LYMPHOCYTE # 2.1 TH/MM3 (1.0-4.8); MEAN CELL VOLUME 99.5 FL (80.0-100.0); MEAN CORPUSCULAR HEMOGLOBIN 33.5 PG (27.0-34.0); MEAN CORPUSCULAR HGB CONC 33.7 % (32.0-36.0); MEAN PLATELET VOLUME 10.2 FL (7.0-11.0); MONO % 4.4 % (0.0-8.0); MONOCYTE # 0.4 TH/MM3 (0-0.9); NEUT % 68.2 % (16.0-70.0); PLATELET COUNT 292 TH/MM3 (150-450); RED BLOOD COUNT 3.62 MIL/MM3 (4.00-5.30); RED CELL DISTRIBUTION WIDTH 15.7 % (11.6-17.2); WHITE BLOOD COUNT 8.9 TH/MM3 (4.0-11.0)
[2017-12-11 05:34] LABS: INTERNATIONAL NORMALIZED RATIO 1.7 RATIO; PROTHROMBIN TIME - PATIENT 17.4 SEC (9.8-11.6)
[2017-12-11 05:56] LABS: BICARBONATE 24.9 MEQ/L (21.0-32.0); CALCIUM 8.1 MG/DL (8.5-10.1); CREATININE 0.57 MG/DL (0.50-1.00)
[2017-12-11] MEDS ORDERED: SODIUM CHLORID 0.9% 500 ML INJ 500 ML IV ONE ×2 (06:30)
[2017-12-11] MEDS ORDERED: PROTHROMBIN COMPLEX IV ONE (06:45)
--- NOTE | 2017-12-11 08:04 | HHI.HP ---
[facility] Service Critical Care Medicine Primary Care Physician No Primary Care Physician Admission Diagnosis GI BLEED w/ eliquis Diagnosis: (1) GI bleed Diagnosis: Principal (2) Anticoagulated by anticoagulation treatment Diagnosis: Principal (3) HTN (hypertension) Diagnosis: Secondary (4) Pulmonary embolism Diagnosis: Secondary (5) DVT (deep venous thrombosis) Diagnosis: Secondary (6) Impaired mobility and activities of daily living Diagnosis: Secondary Travel History International Travel<30 Days: No Contact w/Intl Traveler <30 Da: No Traveled to Known Affected Are: No History of Present Illness 67 yo female who presents to [facility] from [facility] due to GI bleeding. She has a PMH of atrial fibrillation, hypertension, hyperlipidemia, GERD, hypothyroidism, prior gastric bypass in 2005 in [place].. She has decreased mobility at baseline and uses combination of walker/wheelchair/motorized scooter. She experienced a fall on 11/08 and had right femur fracture for which she underwent ORIF 11/09/[address] Gonzalez. She has not previously been anticoagulated for her long-standing history of atrial fibrillation, however she was started on Eliquis for treatment of DVT and RUL PE on 11/10 and her last dose was 12/10 at 9 PM. She has noted some increased bruising of her arms and legs over the last couple of weeks. Last night she had two bowel movements with dark bloody stool and clots. Her blood pressure at rehab was 96/58. Mean arterial pressure has been 73-78 in the emergency department. Heart rate is in the 60s-70s and she is on multiple AV lloyd blocking agents for atrial fibrillation. She denies any nausea, vomiting, abdominal pain, fever. There is some mention of chest pain on her EVAC run sheet however patient tells me she never had any chest pain or shortness of breath.. She denies prior issues with GI bleeding. She states her last EGD and colonoscopy were performed in 2005 prior to her gastric bypass and were normal. Denies NSAID use. In the ED she has received normal saline bolus 500 mL 2. Her hemoglobin is 12.1 Review of Systems Respiratory: DENIES: Wheezing Cardiovascular: DENIES: Chest pain, Syncope, Dyspnea on Exertion, Lower Extremity Edema Gastrointestinal: COMPLAINS OF: Bloody stools, DENIES: Abdominal pain, Black stools, Constipation, Nausea, Vomiting Integumentary: DENIES: Rash Hematologic/lymphatic: COMPLAINS OF: Bruising Neurologic: DENIES: Headache Past Family Social History Allergies: Coded Allergies: No Known Allergies (Unverified , 11/16/17) Past Medical History Hypothyroidism Seizure Atrial fibrillation, patient states this is long-standing. She was not previously on anticoagulation until it was initiated for DVT Hypertension Hyperlipidemia GERD Osteoarthritis Depression Records indicate a prior history of stroke. Patient states she is not certain if this was accurate. She denies residual focal weakness Past Surgical History Tonsillectomy Bilateral cataract surgery Hiatal hernia repair Gastric bypass performed in [facility] in 2005 Right rotator cuff repair Left hip arthroplasty Right knee arthroplasty Right ankle ORIF IM nail right femur Reported Medications Ferrous sulfate 325 mg p.o. twice daily Eliquis 5 mg p.o. twice daily Digoxin 0.125 mill grams p.o. daily Atorvastatin 40 mg p.o. nightly Metoprolol 12.5 mg p.o. twice daily Cardizem CD 120 mill grams p.o. daily Hydrocodone 5/325 1 tab p.o. every 6 hours as needed for pain Levetiracetam 500 mg p.o. twice daily Bupropion 150 mg p.o. twice daily Mirtazapine M 15 mg's p.o. nightly Zinc sulfate 220 mill grams p.o. daily Omeprazole 20 mg p.o. daily Calcitonin 1 spray nasal daily Levothyroxine 75 mcg p.o. daily Vitamin B complex 1 tab p.o. daily Vitamin D3 1000 units p.o. daily Multivitamin 1 tab p.o. daily Melatonin 6 mg p.o. nightly Family History Mother at age 87 "from old age" Father with CHF at age 67. It is unclear if this is related to coronary artery disease Brother had emphysema Social History She is visiting from [place]. She is and her has returned to [place]. She has been residing at [facility] since discharge after femur fracture that occurred on 11/08 Lifetime non-smoker Used to drink 2 alcoholic beverages per day but has not had any since she has been in rehab No illicit drug use Physical Exam Vital Signs Vital Signs Date Time Temp Pulse Resp B/P (MAP) Pulse Ox O2 Delivery O2 Flow Rate FiO2 12/11/17 07:33 67 18 107/64 (78) 98 Room Air 12/11/17 06:50 68 16 105/60 (75) 99 Room Air 12/11/17 05:56 71 16 98/61 (73) 100 Room Air 12/11/17 04:10 98.4 69 16 104/63 (77) 95 Physical Exam GENERAL: Thin, well-developed patient who is laying in the ED stretcher, alert and interactive. SKIN: Warm and dry. There are multiple ecchymosis on the dorsum of her forearms and along wish her left jackson. HEAD: Atraumatic. Normocephalic. EYES: Pupils equal and round, 2 mm and reactive bilaterally. No scleral icterus. No injection or drainage. ENT: Edentulous. No nasal bleeding or discharge. Mucous membranes pink and moist. NECK: Trachea midline. No JVD. CARDIOVASCULAR: Regular rate and rhythm, rate in the 60s. No murmurs rubs or gallops appreciated. RESPIRATORY: Breathing comfortably on room air. Clear to auscultation. Breath sounds equal bilaterally. GASTROINTESTINAL: Abdomen soft, non-tender, nondistended. Bowel sounds present. MUSCULOSKELETAL: Extremities without clubbing, cyanosis, or edema. She is wearing a right knee immobilizer. Steri-Strips overlying her right knee. Multiple ecchymoses along her left jackson. NEUROLOGICAL: Awake and alert, oriented to person place and year.. No obvious cranial nerve deficits. Strength 5 out of 5 in bilateral upper extremities and left lower extremities. Normal speech. Laboratory Laboratory Tests Test 12/11/17 05:00 12/11/17 05:05 White Blood Count 8.9 Red Blood Count 3.62 Hemoglobin 12.1 Hematocrit 36.0 Mean Corpuscular Volume 99.5 Mean Corpuscular Hemoglobin 33.5 Mean Corpuscular Hemoglobin Concent 33.7 Red Cell Distribution Width 15.7 Platelet Count 292 Mean Platelet Volume 10.2 Neutrophils (%) (Auto) 68.2 Lymphocytes (%) (Auto) 24.1 Monocytes (%) (Auto) 4.4 Eosinophils (%) (Auto) 2.9 Basophils (%) (Auto) 0.4 Neutrophils # (Auto) 6.0 Lymphocytes # (Auto) 2.1 Monocytes # (Auto) 0.4 Eosinophils # (Auto) 0.3 Basophils # (Auto) 0.0 CBC Comment DIFF FINAL Differential Comment Prothrombin Time 17.4 Prothromb Time International Ratio 1.7 Activated Partial Thromboplast Time 43.5 Blood Urea Nitrogen 14 Creatinine 0.57 Random Glucose 52 Calcium Level 8.1 Sodium Level 143 Potassium Level 4.8 Chloride Level 108 Carbon Dioxide Level 24.9 Anion Gap 10 Estimat Glomerular Filtration Rate 106 Ammonia 13 Result Diagram: 12/11/17 0500 12/11/17 0500 Caprini VTE Risk Assessment Caprini VTE Risk Assessment: Mod/High Risk (score >= 2) VTE Pharm Contraindication: Active bleeding Caprini Risk Assessment Model Point Value = 1 Point Value = 2 Point Value = 3 Point Value = 5 Age 41-60 Minor surgery BMI > 25 kg/m2 Swollen legs Varicose veins or History of unexplained or recurrent spontaneous Oral contraceptives or hormone replacement Sepsis (< 1 month) Serious lung disease, including pneumonia (< 1 month) Abnormal pulmonary function Acute myocardial infarction Congestive heart failure (< 1 month) History of inflammatory bowel disease Medical patient at bed rest Age 61-74 Arthroscopic surgery Major open surgery (> 45 min) Laparoscopic surgery (> 45 min) Malignancy Confined to bed (> 72 hours) Immobilizing plaster cast Central venous access Age >= 75 History of VTE Family history of VTE Factor V Leiden Prothrombin [id number] Lupus anticoagulant Anticardiolipin antibodies Elevated serum homocysteine Heparin-induced thrombocytopenia Other congenital or acquired thrombophilia Stroke (< 1 month) Elective arthroplasty Hip, pelvis, or leg fracture Acute spinal cord injury (< 1 month) Prophylaxis Regimen Total Risk Factor Score Risk Level Prophylaxis Regimen 0-1 Low Early ambulation 2 Moderate Order ONE of the following: *Sequential Compression Device (SCD) *Heparin 5000 units SQ BID 3-4 Higher Order ONE of the following medications: *Heparin 5000 units SQ TID *Enoxaparin/Lovenox 40 mg SQ daily (WT < 150 kg, CrCl > 30 mL/min) *Enoxaparin/Lovenox 30 mg SQ daily (WT < 150 kg, CrCl > 10-29 mL/min) *Enoxaparin/Lovenox 30 mg SQ BID (WT < 150 kg, CrCl > 30 mL/min) AND/OR *Sequential Compression Device (SCD) 5 or more Highest Order ONE of the following medications: *Heparin 5000 units SQ TID (Preferred with Epidurals) *Enoxaparin/Lovenox 40 mg SQ daily (WT < 150 kg, CrCl > 30 mL/min) *Enoxaparin/Lovenox 30 mg SQ daily (WT < 150 kg, CrCl > 10-29 mL/min) *Enoxaparin/Lovenox 30 mg SQ BID (WT < 150 kg, CrCl > 30 mL/min) AND *Sequential Compression Device (SCD) Assessment and Plan Problem List: (1) Gastric bypass status for obesity ICD Code: Z98.84 - Bariatric surgery status Status: Chronic (2) Hypothyroid ICD Code: E03.9 - Hypothyroidism, unspecified (3) DVT (deep venous thrombosis) ICD Code: I82.409 - Acute embolism and thrombosis of unspecified deep veins of unspecified lower extremity Status: Acute (4) Pulmonary embolism ICD Code: I26.99 - Other pulmonary embolism without acute cor pulmonale Status: Acute (5) HTN (hypertension) ICD Code: I10 - Essential (primary) hypertension Status: Chronic (6) HLD (hyperlipidemia) ICD Code: E78.5 - Hyperlipidemia, unspecified Status: Chronic (7) History of seizure ICD Code: Z87.898 - Personal history of other specified conditions Status: Chronic (8) GI bleed ICD Code: K92.2 - Gastrointestinal hemorrhage, unspecified Status: Acute (9) Depression ICD Code: F32.9 - Major depressive disorder, single episode, unspecified Status: Chronic (10) Hypoglycemia ICD Code: E16.2 - Hypoglycemia, unspecified Status: Acute (11) Fatty infiltration of liver ICD Code: K76.0 - Fatty (change of) liver, not elsewhere classified Status: Chronic (12) Anticoagulated by anticoagulation treatment ICD Code: Z79.01 - manager intermediate (current) use of anticoagulants Status: Acute (13) Impaired mobility and activities of daily living ICD Code: Z74.09 - Other reduced mobility Status: Chronic (14) Protein-calorie malnutrition, moderate ICD Code: E44.0 - Moderate protein-calorie malnutrition Status: Chronic Assessment and Plan NEURO: History of seizure Depression Insomnia Continue Keppra 500 mg p.o. twice daily Melatonin 6 mg p.o. nightly for sleep Continue bupropion 150 mg p.o. twice daily Continue mirtazapine 50 mg p.o. nightly MSK: Osteoarthritis Recent right hip fracture status post ORIF Osteoporosis Lortab as needed for pain Appears she was no longer on calcitonin, so this has been held Continue MVI, D3 RESP: On room air Incentive spirometry every hour away CV: Hypertension Hyperlipidemia Atrial fibrillation Right upper lobe pulmonary embolus Monitor hemodynamics Hold metoprolol 12.5 mill grams p.o. twice daily for now. Holding cardizem 120 mg po daily for now. Check digoxin level, if a probe continue digoxin 0.125 mg p.o. daily Check LFTs and if appropriate will continue atorvastatin 40 mg p.o. nightly 2D echo 11/16/17 -EF 55-60% GI: GI bleeding GERD History of gastric bypass 2005 Fatty infiltration of the liver Chronic moderate protein energy malnutrition Protonix drip Serial hemoglobin with transfusion as indicated Gastro enterology consult Holding Eliquis. She has had provoked DVT/PE and will need anticoagulation when stabilized, GI to scope tomorrow for risk stratification. If unable to resume anticoagulation, will need to consider IVC filter. FEN/RENAL: Monitor intake and output and creatinine. Monitor electrolytes and replace as indicated per ICU electrolyte replacement protocol. D50.45 NaCl @ 100 ml/hr. ID: Monitor for signs and symptoms of infection HEME: Anticoagulation with Eliquis Nonocclusive DVT right common femoral vein 11/11/17 Hold Eliquis. I have asked to hold off on Kcentra at this time based on her hemodynamics, clinical appearance and current Hgb as well as thromboembolic risk. Serial hemoglobin every 8 hours and transfuse as indicated for hemoglobin less than 7 or hemodynamic changes. U/s 11/11/17 nonocclusive DVT right common femoral vein. Repeat ultrasound. If she will be off anticoagulation will need to consider retrievable filter. Continue ferrous sulfate 325 mg po bid. ENDO: Hypothyroidism -check TSH, if appropriate we will continue Synthroid 75 mcg p.o. daily Hypoglycemia glucose is 52 and she is asymptomatic. 1/[address] dext[address] and her maintenance fluids per above. PROPH: SCDs for DVT prophylaxis. Hold Pharmacologic DVT prophylaxis due to active bleeding. Protonix drip as per above. ACCESS: Peripheral IV providing adequate access at this time. Discussed with gastroenterology Patient is full code Level 3 H&P Problem Qualifiers (1) Pulmonary embolism: (2) DVT (deep venous thrombosis): Qualified Codes: I82.411 - Acute embolism and thrombosis of right femoral vein Cait Scanlon MD Dec 11, 2017 08:04
[2017-12-11] MEDS ORDERED: RESP: ALBUTEROL 2.5 MG/3 ML NEB (PRN) INH (08:30)
[2017-12-11] MEDS ORDERED: ACETAMINOPHEN/HYDROcodone 325 MG/5 MG TAB PO PRN (08:30)
[2017-12-11] MEDS ORDERED: CHLORHEXIDINE GLUCONATE 2 % 1 PACK (2 CLOTHS) TOP PRN (08:30)
[2017-12-11] MEDS ORDERED: NURSING INFORMATION XX SCH (08:30)
[2017-12-11] MEDS ORDERED: SODIUM CHLORIDE 0.9% FLUSH 10 ML FLUSH IV FLUSH PRN (08:30)
[2017-12-11] MEDS ORDERED: METOCLOPRAMIDE HCL 10 MG/2 ML VIAL IV PUSH PRN (08:45)
--- NOTE | 2017-12-11 09:07 | PD.CONS ---
HPI History of Present Illness This is a 67 year old F with PMH significant for a-fib, HTN, hyperlipidemia, GERD, hypothyroidism, prior gastric bypass surgery who had a recent right femur fracture in the beginning of November and is currently in rehab. During hospital admission for the fracture she was diagnosed with PE and DVT and started on Eliquis, last dosage was yesterday. Pt was sent to the ER early this morning for reports of blood in her stool. Pt is unable to provide a history, states has not seen her stool just knows that it has been watery, history obtained through chart review and discussion with attending. Pt has had 2-3 bloody BMs this morning. She denies any nausea, vomiting, abdominal pain, unintentional weight loss. Denies history of GIB. Last EGD was approximately 10 years ago and she thinks the exam was normal. Last colonoscopy was prior to her gastric bypass surgery in 2005 and she also recalls this exam to be normal. Denies any ETOH in one month, denies heavy drinking prior to that. Denies smoking. Denies NSAID use. (Yane uGevara) PFSH Past Medical History A-fib HTN Hyperlipidemia GERD Hypothyroidism Right femur fracture PE DVT Past Surgical History EGD Colonoscopy Gastric bypass Right leg intramedullary nail fixation of supracondylar femur fracture. (Yane Guevara) Coded Allergies: No Known Allergies (Unverified , 11/16/17) Social History Denies ETOH Denies smoking Currently in rehab for fracture (Yane Guevara) Review of Systems Gastrointestinal: COMPLAINS OF: Bloody stools, Diarrhea, DENIES: Abdominal pain , Nausea, Vomiting, Swelling of Abdomen, Heartburn, Hematemesis (Yane Guevara) GI Exam Vitals I&O Vital Signs Date Time Temp Pulse Resp B/P (MAP) Pulse Ox O2 Delivery O2 Flow Rate FiO2 12/11/17 07:33 67 18 107/64 (78) 98 Room Air 12/11/17 06:50 68 16 105/60 (75) 99 Room Air 12/11/17 05:56 71 16 98/61 (73) 100 Room Air 12/11/17 04:10 98.4 69 16 104/63 (77) 95 Laboratory Test 12/11/17 05:00 12/11/17 05:05 White Blood Count 8.9 TH/MM3 Red Blood Count 3.62 MIL/MM3 Hemoglobin 12.1 GM/DL Hematocrit 36.0 % Mean Corpuscular Volume 99.5 FL Mean Corpuscular Hemoglobin 33.5 PG Mean Corpuscular Hemoglobin Concent 33.7 % Red Cell Distribution Width 15.7 % Platelet Count 292 TH/MM3 Mean Platelet Volume 10.2 FL Neutrophils (%) (Auto) 68.2 % Lymphocytes (%) (Auto) 24.1 % Monocytes (%) (Auto) 4.4 % Eosinophils (%) (Auto) 2.9 % Basophils (%) (Auto) 0.4 % Neutrophils # (Auto) 6.0 TH/MM3 Lymphocytes # (Auto) 2.1 TH/MM3 Monocytes # (Auto) 0.4 TH/MM3 Eosinophils # (Auto) 0.3 TH/MM3 Basophils # (Auto) 0.0 TH/MM3 CBC Comment DIFF FINAL Differential Comment Prothrombin Time 17.4 SEC Prothromb Time International Ratio 1.7 RATIO Activated Partial Thromboplast Time 43.5 SEC Blood Urea Nitrogen 14 MG/DL Creatinine 0.57 MG/DL Random Glucose 52 MG/DL Calcium Level 8.1 MG/DL Sodium Level 143 MEQ/L Potassium Level 4.8 MEQ/L Chloride Level 108 MEQ/L Carbon Dioxide Level 24.9 MEQ/L Anion Gap 10 MEQ/L Estimat Glomerular Filtration Rate 106 ML/MIN Ammonia 13 MCMOL/L Physical Examination HEENT: Normocephalic; atraumatic CHEST: Even/unlabored CARDIAC: Irregular ABDOMEN: Soft, nondistended, nontender; bowel sounds active EXTREMITIES: No clubbing, cyanosis, or edema. SKIN: Pale TIGHT BARREL INSPECTOR: Alert and oriented, poor historian (Yane Guevara) Assessment and Plan Plan Assessment: - Rectal bleeding- began early this morning- sent from rehab for evaluation. Pt started on Eliquis in the beginning of November for DVT and PE after surgery for right femur fracture, last dose of Eliquis was yesterday. Pt unsure of color of stool but according to attending was maroon with clots. H/H currently stable, recheck ordered for 1pm Pt denies history of GIB. No ETOH in one month. Denies smoking. Denies NSAIDs. Last EGD was approx 10 years ago, states normal exam. Last colonoscopy was prior to gastric bypass in 2005 and she believes this was also a normal exam. Denies family history of colon cancer. Plan: EGD/colonoscopy tomorrow Obtain consent Clear liquids today Magnesium Citrate prep NPO after MN Serial H/H Transfuse as needed C Diff stool Keep Eliquis on hold CT abdomen and pelvis W IV contrast Further recommendations based on clinical course and results of above Pt has been seen and examined by myself and Dr. Juan and this note is written on his behalf (Yane Guevara) Physician Comments Seen and examined, plan as above. EGD and Colonoscopy discussed with patient and agreed to proceed in AM. Thank you for the consult. (Terence Juan MD) Yane Guevara Dec 11, 2017 09:07 Terence Juan MD Dec 11, 2017 14:50
[2017-12-11] MEDS ORDERED: POTASSIUM CHLOR 40 MEQ PREMIX 100 ML IV PRN ×2 (09:15)
[2017-12-11] MEDS ORDERED: POTASSIUM PHOSPHATE INJ 30 MMOL in SODIUM CHLOR 0.9% 250 ML INJ 250 ML IV PRN (09:15)
[2017-12-11] MEDS ORDERED: POTASSIUM CHLORIDE 25 MEQ EFFERVESCENT TAB PO PRN (09:15)
[2017-12-11] MEDS ORDERED: POTASSIUM CHLOR 20 MEQ PREMIX 100 ML IV PRN ×2 (09:15)
[2017-12-11] MEDS ORDERED: MAGNESIUM OXIDE 400 MG TAB PO PRN (09:15)
[2017-12-11] MEDS ORDERED: MAGNESIUM SULFATE INJ 4 GM in SODIUM CHLORIDE 0.9% INJ 92 ML IV PRN (09:15)
[2017-12-11] MEDS ORDERED: MAGNESIUM SULFATE INJ 2 GM in SODIUM CHLORIDE 0.9% INJ 96 ML IV PRN (09:15)
[2017-12-11] MEDS ORDERED: SODIUM PHOSPHATE INJ 30 MMOL in SODIUM CHLOR 0.9% 250 ML INJ 240 ML IV PRN (09:15)
[2017-12-11] MEDS ORDERED: POTASSIUM PHOSPHATE MONOBASIC 500 MG TAB PO/TUBE PRN (09:15)
[2017-12-11] MEDS ORDERED: POTASSIUM PHOSPHATE MONOBASIC 500 MG TAB PO PRN (09:15)
[2017-12-11] MEDS ORDERED: DEXTROSE 50% IN WATER 50 ML VIAL(D50) IV PUSH ONE (09:30)
[2017-12-11] MEDS ORDERED: PANTOPRAZOLE INJ 80 MG in SODIUM CHLORIDE 0.9% INJ 35 ML IV ONE (09:40)
[2017-12-11] MEDS: SODIUM CHLORIDE 0.9% FLUSH 10 ML FLUSH IV FLUSH SCH ×2 (10:08→19:50)
[2017-12-11 10:29] LABS: HEMATOCRIT 33.1 % (35.0-46.0); HEMOGLOBIN 11.1 GM/DL (11.6-15.3)
[2017-12-11] MEDS: CHOLECALCIFEROL (VIT D3) 1000 UNIT TAB PO SCH (10:37)
[2017-12-11] MEDS: PANTOPRAZOLE INJ 80 MG in SODIUM CHLORIDE 0.9% INJ 100 ML IV SCH ×2 (10:37→19:50)
[2017-12-11] MEDS: levETIRAcetam 500 MG TAB PO SCH ×2 (10:42→19:50)
[2017-12-11] MEDS: FERROUS SULFATE 325 MG (65 MG ELEMENTAL IRON) TAB PO SCH ×2 (10:42→18:00)
[2017-12-11] MEDS: DIGOXIN 0.125 MG TAB PO SCH (10:42)
[2017-12-11] MEDS: buPROPion HCL 75 MG TAB PO SCH ×2 (10:42→19:49)
[2017-12-11] MEDS: MULTIVITAMIN TAB PO SCH (10:43)
[2017-12-11] MEDS: DEXT 5%-NACL 0.45% 1000 ML INJ 1,000 ML IV SCH ×2 (10:43→19:50)
[2017-12-11 11:30] LABS: DIGOXIN 1.1 NG/ML (0.8-2.0); TOTAL BILIRUBIN ADULT 0.5 MG/DL (0.2-1.0); TOTAL PROTEIN 4.5 GM/DL (6.4-8.2)
[2017-12-11 11:35] LABS: ALBUMIN 1.9 GM/DL (3.4-5.0); DIRECT BILIRUBIN ADULT 0.2 MG/DL (0.0-0.2); INDIRECT BILIRUBIN 0.3 MG/DL (0.0-0.8); MAGNESIUM 1.7 MG/DL (1.5-2.5); PHOSPHORUS 3.6 MG/DL (2.5-4.9)
[2017-12-11] MEDS ORDERED: IOHEXOL 350 MG/ML 10 ML VIAL (for RAD DIAG) IVCONTRAST ONE (11:47)
--- NOTE | 2017-12-11 11:56 | RADRPT ---
EXAM DATE: 12/11/2017 11:42 AM EDT AGE/SEX: 67 years / Female INDICATIONS: Diffuse abdominal pain. CLINICAL DATA: This is the patient's initial encounter. Patient reports that signs and symptoms have been present for 1 day and indicates a pain score of 5/10. MEDICAL/SURGICAL HISTORY: Cerebrovascular disease. Hypertension. Hiatal hernia. AFIB, Seizur es. Gastric bypass. ORAL CONTRAST: No oral contrast ingested. RADIATION DOSE: 6.64 CTDI (mGy) COMPARISON: [facility] – [place], [place], [place] PULMONARY ANGIOGRAM, 11/09/2017. . TECHNIQUE: Multiple contiguous axial images were obtained through the abdomen and pelvis following b olus infusion of 92 ml Omnipaque 350 (iohexol) nonionic water-soluble contrast as a single exam dos e. No oral contrast ingested. Using automated exposure control and adjustment of the mA and/or kV ac cording to patient size, the radiation dose was kept as low as reasonably achievable to obtain optima l diagnostic quality images. FINDINGS: Lower Lungs: Bilateral small pleural effusions, decreased in size as compared to the prior exam. Liver: The liver demonstrates a lobular contour with widening of the hepatic hilum consistent with ci rrhosis. No evidence of mass or biliary obstruction. Patient is status post prior cholecystectomy. Spleen: Homogeneous density without enlargement. Pancreas: The pancreas is atrophic and fatty replaced. No evidence of concerning pancreatic mass. Kidneys: Normal in size and shape. No evidence of mass or hydronephrosis. Adrenal Glands: Unremarkable. Aorta: Scattered atherosclerosis. No evidence of aneurysm. Bowel/Mesentery: Fluid identified within the rectosigmoid colon without evidence of abnormal wall th ickening or adjacent inflammatory change. Abdominal Wall: Intact. Retroperitoneum: No evidence of adenopathy in the retrocrural, para-aortic, or deep pelvic regions. Bladder: Contours are smooth. Reproductive Organs: The uterus is atrophic. Ovaries are not visualized. Inguinal: The inguinal region is unremarkable without evidence of adenopathy. Bony Structures: There is a left hip prosthesis present which causes adjacent beam hardening artifac t. There is appearance of old healed left-sided inferior pubic ramus fractures. The bones are diffuse ly osteopenic. Elliott identified within the right femur. Extensive degenerative changes identified throu ghout the lumbar spine. CONCLUSION: 1. Cirrhosis of the liver without evidence of concerning mass. No evidence of ascites. 2. Fluid identified within the sigmoid colon without evidence of adjacent wall thickening or inflamm atory change. There is a radiopaque 1.6 cm ovoid object identified within the fluid-filled rectosigmo id colon which may represent a suppository. Similar appearing tablet is identified within the transve rse colon. Electronically signed by: Dorothy Can MD 12/11/2017 11:54 AM EDT
[2017-12-11 13:28] LABS: HEMATOCRIT 33.1 % (35.0-46.0)
[2017-12-11] MEDS ORDERED: DILTIAZEM-CD 120 MG CAP ER PO SCH (15:30)
[2017-12-11] MEDS ORDERED: MAGNESIUM CITRATE SOLN 300 ML BTL PO ONE ×2 (16:00→18:00)
[2017-12-11] MEDS ORDERED: LACTATED RINGER'S 1000 ML INJ 1,000 ML IV ONE (16:15)
[2017-12-11] MEDS ORDERED: PHYTONADIONE INJ 10 MG in SODIUM CHLORIDE 0.9% INJ 50 ML IV ONE (18:00)
[2017-12-11 19:05] LABS: HEMATOCRIT 33.1 % (35.0-46.0); HEMOGLOBIN 10.8 GM/DL (11.6-15.3)
[2017-12-11] MEDS: MELATONIN 5 MG TAB PO SCH (19:49)
[2017-12-11] MEDS: ATORVASTATIN 40 MG TAB PO SCH (19:49)
[2017-12-11] MEDS: MIRTAZAPINE 15 MG TAB PO SCH (19:49)
[2017-12-11 22:55] LABS: HEMATOCRIT 32.8 % (35.0-46.0); HEMOGLOBIN 10.6 GM/DL (11.6-15.3)
[2017-12-12] VITALS (12 sets, daily range): BP systolic 90–133; BP diastolic 56–67; PULSE 75–93; RESP 12–20; TEMP 97.9–98.9; O2SAT 92–99
[2017-12-12 03:58] LABS: AUTOMATED NEUTROPHIL # 4.7 TH/MM3 (1.8-7.7); BASOPHIL % 0.2 % (0.0-2.0); EOSINOPHIL # 0.2 TH/MM3 (0-0.4); EOSINOPHIL % 3.1 % (0.0-4.0); HEMATOCRIT 33.9 % (35.0-46.0); HEMOGLOBIN 11.4 GM/DL (11.6-15.3); LYMPH % 25.1 % (9.0-44.0); LYMPHOCYTE # 1.8 TH/MM3 (1.0-4.8); MEAN CORPUSCULAR HEMOGLOBIN 33.5 PG (27.0-34.0); MEAN CORPUSCULAR HGB CONC 33.5 % (32.0-36.0); MEAN PLATELET VOLUME 9.9 FL (7.0-11.0); MONO % 5.8 % (0.0-8.0); MONOCYTE # 0.4 TH/MM3 (0-0.9); NEUT % 65.8 % (16.0-70.0); PLATELET COUNT 258 TH/MM3 (150-450); RED BLOOD COUNT 3.39 MIL/MM3 (4.00-5.30); RED CELL DISTRIBUTION WIDTH 15.7 % (11.6-17.2); WHITE BLOOD COUNT 7.1 TH/MM3 (4.0-11.0)
[2017-12-12] MEDS: CHLORHEXIDINE GLUCONATE 2 % 1 PACK (2 CLOTHS) TOP SCH (04:00)
[2017-12-12 04:05] LABS: INTERNATIONAL NORMALIZED RATIO 1.3 RATIO; PROTHROMBIN TIME - PATIENT 13.5 SEC (9.8-11.6)
[2017-12-12 04:18] LABS: BICARBONATE 24.9 MEQ/L (21.0-32.0); CALCIUM 7.9 MG/DL (8.5-10.1); CREATININE 0.52 MG/DL (0.50-1.00); MAGNESIUM 2.1 MG/DL (1.5-2.5); PHOSPHORUS 3.5 MG/DL (2.5-4.9)
[2017-12-12] MEDS: PANTOPRAZOLE INJ 80 MG in SODIUM CHLORIDE 0.9% INJ 100 ML IV SCH ×2 (05:20→17:24)
--- NOTE | 2017-12-12 05:43 | HHI.CCPN ---
Subjective Remarks/Hospital Course 67 yo female who presents to [facility] [place] from [facility] due to GI bleeding. She has a PMH of atrial fibrillation, hypertension, hyperlipidemia, GERD, hypothyroidism, prior gastric bypass in 2005 in [place].. She has decreased mobility at baseline and uses combination of walker/wheelchair/motorized scooter. She experienced a fall on 11/08 and had right femur fracture for which she underwent ORIF 11/09/[address] Gonzalez. She has not previously been anticoagulated for her long-standing history of atrial fibrillation, however she was started on Eliquis for treatment of DVT and RUL PE on 11/10 and her last dose was 12/10 at 9 PM. She has noted some increased bruising of her arms and legs over the last couple of weeks. Last night she had two bowel movements with dark bloody stool and clots. Her blood pressure at rehab was 96/58. Mean arterial pressure has been 73-78 in the emergency department. Heart rate is in the 60s-70s and she is on multiple AV lloyd blocking agents for atrial fibrillation. She denies any nausea, vomiting, abdominal pain, fever. There is some mention of chest pain on her EVAC run sheet however patient tells me she never had any chest pain or shortness of breath.. She denies prior issues with GI bleeding. She states her last EGD and colonoscopy were performed in 2005 prior to her gastric bypass and were normal. Denies NSAID use. In the ED she has received normal saline bolus 500 mL 2. Her hemoglobin is 12.1 SUBJECTIVE: 12/12: Currently on 4 L nasal cannula and acutely hypoxic yesterday. Received 1L normal saline in ED along with 1 L LR yesterday. Chest x-ray this a.m. reveals no acute pulmonary finding. Appears comfortable.. Diagnosed with C. difficile overnight. Started on oral vancomycin by overnight manuscripts archivist. Objective Vital Signs Date Time Temp Pulse Resp B/P (MAP) Pulse Ox O2 Delivery O2 Flow Rate FiO2 12/12/17 02:00 76 12/12/17 00:00 97.9 19 90/56 (67) 99 12/11/17 21:28 Nasal Cannula 4.00 Result Diagram: 12/12/17 0240 12/12/17 0240 Imaging Last Impressions Abdomen/Pelvis CT 12/11/17 0000 Signed Impressions: CONCLUSION: 1. Cirrhosis of the liver without evidence of concerning mass. No evidence of ascites. 2. Fluid identified within the sigmoid colon without evidence of adjacent wall thickening or inflammatory change. There is a radiopaque 1.6 cm ovoid object i dentified within the fluid-filled rectosigmoid colon which may represent a supp ository. Similar appearing tablet is identified within the transverse colon. Objective Remarks GENERAL: 67-year-old female resting in bed in no acute distress SKIN: Warm and dry. There are multiple ecchymosis on the dorsum of her forearms and along wish her left jackson. Excoriation to the coccyx HEAD: Atraumatic. Normocephalic. EYES: Pupils equal and round, 2 mm and reactive bilaterally. No scleral icterus. No injection or drainage. ENT: Edentulous. No nasal bleeding or discharge. Mucous membranes pink and moist. NECK: Trachea midline. No JVD. CARDIOVASCULAR: RRR. S1, S2 no S 4. Without murmurs, clicks, gallops or rubs.. No murmurs rubs or gallops appreciated. RESPIRATORY: Diminished breath sounds bilaterally appreciated. No wheezing GASTROINTESTINAL: Abdomen soft, non-tender, nondistended. Hypoactive bowel sounds present. MUSCULOSKELETAL: Extremities without significant peripheral edema. She is wearing a right knee immobilizer. Steri-Strips overlying her right knee. Multiple ecchymoses along her left jackson. NEUROLOGICAL: Awake and alert. No obvious cranial nerve deficits. Strength 5 out of 5 in bilateral upper extremities and left lower extremities. Sensation appears intact bilaterally. Gait was not assessed. Normal speech. Urinary Catheter: No Assessment to: Continue Vascular Central Line Catheter: No Assessment to: Continue A/P Assessment and Plan NEURO/PSYCH: History of seizure 5 years ago on chronic antiepileptic medication Depression disorder NOS Insomnia Daily EtOH use Currently on levetiracetam 500 mg by mouth twice daily. Continue Melatonin 6 mg p.o. nightly for sleep switch to 5 mg daily per hospital pharmacy protocol Continue bupropion 150 mg p.o. twice daily/home medication for depression Continue mirtazapine 15 mg p.o. nightly Acetaminophen 650 mg by mouth every 6 hours as needed fever Hydrocodone/acetaminophen 5/325 1 tablet every 4 hours as needed pain 1 through 5 Morphine sulfate 2 mg IV every 2 hours as needed pain 6 or 10 Thiamine 100 mg IV daily 3 days. Monitor for DTs RESP: Acute respiratory insufficiency Nasal cannula to maintain saturations greater than or equal to 92%. Currently on 4 L Incentive spirometry every hour while awake Albuterol/ipratropium aerosols every 6 hours with albuterol aerosols every 2 hours as needed dyspnea Follow-up chest x-ray this a.m. revealed no acute cardiopulmonary findings CV: Hypertension/essential Hyperlipidemia Atrial fibrillation -currently normal sinus rhythm Right upper lobe pulmonary embolus 11/25 Mild TR Monitor hemodynamics Hold metoprolol tartrate 12.5 mill grams p.o. twice daily for now. Holding diltiazem extended release 120 mg po daily with borderline blood pressures in hospital acute bleeding Digoxin level 1.1. Continue digoxin 0.125 mg p.o. daily/home medication Hyperlipidemia continue atorvastatin 40 mg p.o. nightly 2D echo 11/16/17 -EF 55-60%/mild TR. Normal LV function. Pulmonary arterial pressure 36 mmHg GI: GI bleeding GERD History of gastric bypass 2005 Cirrhotic features liver Chronic moderate protein energy malnutrition/hypoalbuminemia Elevated alkaline phosphatase Currently n.p.o. status Pantoprazole drip at 8 mg an hour. Serial hemoglobin with transfusion every 6 hours. No current indication for blood transfusion Gastro enterology consult appreciated. Plan for EGD/colonoscopy today. Receive magnesium citrate prep Holding apixaban. CT abdomen/pelvis revealed bilateral small pleural effusions, cirrhotic/nodular features liver, colonic thickening. Possibly retained suppository placed. FEN/RENAL: Monitor intake and output and creatinine. Monitor electrolytes and replace as indicated per ICU electrolyte replacement protocol. Currently on D5 one third normal saline at 84 cc an hour ID: C. difficile positive Placed on oral vancomycin 125 mg by mouth 4 times daily 10 day per new ISDA recommendations with white blood cell count less than 15,000 creatinine less than 1.5 Monitor for signs and symptoms of infection/alternate HEME/ONC: Anticoagulation with Eliquis Nonocclusive DVT right common femoral vein 11/11/17 Hold apixaban 5 mg twice daily. Serial hemoglobin every 6 hours and transfuse as indicated for hemoglobin less than 7 or hemodynamic changes. U/s 11/11/17 nonocclusive DVT right common femoral vein. Continue ferrous sulfate 325 mg po bid. ENDO: Hypothyroidism Hypoglycemia Continue levothyroxine 75 mcg by mouth daily. TSH 2.62. Currently D5 one third normal saline at 84 cc an hour due to admission with hypoglycemia. Accu-Cheks every 6 hours with Novulog/low regimen MSK: Osteoarthritis Recent right hip fracture status post ORIF Osteoporosis Appears she was no longer on calcitonin, so this has been held Cholecalciferol 1000 units daily to be resumed when clinically indicated PT/OT evaluate and treat Patient is on zinc sulfate 220 mg twice daily at home PROPH: SCDs for DVT prophylaxis. Hold Pharmacologic DVT prophylaxis due to active bleeding. Pantoprazole drip as per above. ACCESS: Peripheral IV providing adequate access at this time. Patient is stable from a critical care medicine standpoint. Assign care to hospitalist in a.m. 12/13/2017. Parmjit Freire MD Dec 12, 2017 05:43
--- NOTE | 2017-12-12 06:20 | RADRPT ---
EXAM DATE: 12/12/2017 6:16 AM EDT AGE/SEX: 67 years / Female INDICATIONS: Shortness of breath. CLINICAL DATA: This is the patient's initial encounter. Patient reports that signs and symptoms have been present for 1 day and indicates a pain score of Nonresponsive. MEDICAL/SURGICAL HISTORY: Cerebrovascular disease. Hypertension. Hiatal hernia. A-Fib Seizur es G-I bleed CABG. [place] [facility] [place]. . FINDINGS: The lungs are grossly clear bilaterally. There are chronic interstitial changes in both lung evans. The previously noted parenchymal consolidation the left lower lung has resolved. There are no pleural effusions or pulmonary edema. The heart size is within normal limits. The bony structures are stable . CONCLUSION: No acute pulmonary infiltrates. Electronically signed by: Bon White MD 12/12/2017 6:19 AM EDT
[2017-12-12] MEDS: LEVOTHYROXINE SODIUM 75 MCG TAB PO SCH (06:22)
[2017-12-12] MEDS ORDERED: DEXTROSE 5%-NACL 0.3% INJ 1,000 ML IV SCH (06:30)
[2017-12-12] MEDS ORDERED: DEXTROSE 50% IN WATER 50 ML VIAL(D50) IV PUSH PRN (07:15)
[2017-12-12] MEDS ORDERED: GLUCAGON 1 MG/ML VIAL OTHER PRN (07:15)
[2017-12-12] MEDS: DEXTROSE 5% IV SCH ×4 (08:00→22:38)
[2017-12-12] MEDS: SODIUM CHLORIDE IV SCH ×4 (08:00→22:38)
[2017-12-12] MEDS: WATE IV SCH ×4 (08:00→22:38)
[2017-12-12] MEDS: levETIRAcetam 500 MG TAB PO SCH ×2 (08:10→21:22)
[2017-12-12] MEDS: FERROUS SULFATE 325 MG (65 MG ELEMENTAL IRON) TAB PO SCH ×2 (08:10→17:24)
[2017-12-12] MEDS: CHOLECALCIFEROL (VIT D3) 1000 UNIT TAB PO SCH (08:10)
[2017-12-12] MEDS: MULTIVITAMIN TAB PO SCH (08:10)
[2017-12-12] MEDS: THIAMINE INJ 100 MG in SODIUM CHLORIDE 0.9% INJ 100 ML IV SCH (08:10)
[2017-12-12] MEDS: buPROPion HCL 75 MG TAB PO SCH ×2 (08:10→21:21)
[2017-12-12] MEDS: DIGOXIN 0.125 MG TAB PO SCH (08:10)
[2017-12-12] MEDS: SODIUM CHLORIDE 0.9% FLUSH 10 ML FLUSH IV FLUSH SCH ×2 (08:10→21:22)
[2017-12-12] MEDS: VANCOMYCIN 500 MG VIAL (FOR ORAL USE ONLY) PO SCH ×4 (08:11→21:22)
[2017-12-12] MEDS: RESP: ALBUTEROL 2.5 MG/IPRATROPIUM 0.5 MG NEB (SCH) NEB ×3 (08:29→19:36)
[2017-12-12] MEDS ORDERED: VANCOMYCIN 500 MG VIAL (FOR ORAL USE ONLY) PO SCH (09:00)
--- NOTE | 2017-12-12 09:46 | EKG ---
Date Performed: 12/11/2017 Time Performed: 13:51:48 PTAGE: 67 years EKG: Normal Sinus rhythm Left axis deviation Possible extensive infarct - age undetermined Low QRS voltages in precordial jermaine ds Compared to previous tracing anterolateral T wave changes have resolved Abnormal ECG PREVIOUS TRACING : 11/08/2017 11.01 DOCTOR: Ambrosio Phillips Interpretating Date/Time 12/12/2017 09:44:19
--- NOTE | 2017-12-12 10:45 | RADRPT ---
EXAM DATE: 12/12/2017 10:23 AM EDT AGE/SEX: 67 years / Female INDICATIONS: Bilateral leg swelling. CLINICAL DATA: This is the patient's subsequent encounter. Patient reports that signs and symptoms h ave been present for 1 day and indicates a pain score of 8/10. MEDICAL/SURGICAL HISTORY: Hypothyroidism. Stroke. Hypercholesterolemia. Glasses. Dentures. A trial fibrillation. Hiatal hernia. Kidney stones. Depression. Deep vein thrombosis. . Bilateral deena ract surgery. Hernia repair. COMPARISON: [facility] [place] BILATERAL VENOUS DOPPLER, 11/11/2017. . No external comparison. TECHNIQUE: Venous ultrasound of both lower extremities was performed from the inguinal ligament to t he proximal calf. Real-time, color Doppler and spectral tracing, compression and augmentation techni ques were used. FINDINGS: Right Leg: There is normal compressibility of the deep venous system from the inguinal region to the proximal calf. No echogenic clot is seen in the lumen of the common femoral, femoral, popliteal, an d posterior tibial veins. There is a normal response of the venous system to proximal and distal aug mentation and respiration. Left Leg: There is normal compressibility of the deep venous system from the inguinal region to the proximal calf. No echogenic clot is seen in the lumen of the common femoral, femoral, popliteal, and posterior tibial veins. There is a normal response of the venous system to proximal and distal augm entation and respiration. CONCLUSION: The study is negative for bilateral lower extremity deep venous thrombosis. Electronically signed by: Zaire Christensen MD 12/12/2017 10:44 AM EDT
[2017-12-12] MEDS ORDERED: PROPOFOL 200 MG/20 ML AMP IV ONE (12:00)
[2017-12-12] MEDS ORDERED: LIDOCAINE HCL 1% PF 5 ML SYRINGE OTHER ONE (12:00)
[2017-12-12] MEDS ORDERED: PHENYLEPH/NS 1000 MCG/10 ML SYR IV ONE (12:00)
[2017-12-12] MEDS: INSULIN NovoLIN REGULAR SUPPLEMENTAL SCALE SQ SCH ×2 (12:00→22:01)
--- NOTE | 2017-12-12 14:25 | GIPROC ---
[facility] [address] [facility]. [facility], [address] EGD PROCEDURE REPORT EXAM DATE: 12/12/2017 PATIENT NAME: Kiersten Carbone MR #: [id number] BIRTHDATE: 1950 ATTENDING: Terence Juan MD ORDER #: [id number] WOODS BOSS: Jair Nava and Natacha Ocasio STATUS: inpatient INDICATIONS: The patient is a 67 yr old female here for an EGD due to hematochezia PROCEDURE PERFORMED: EGD w/ biopsy MEDICATIONS: None and Per Anesthesia. TOPICAL ANESTHETIC: none CONSENT: The patient understands the risks and benefits of the procedure and understands that these risks include, but are not limited to: sedation, allergic reaction, infection, perforation and/or bleeding. Alternative means of evaluation and treatment include, among others: physical exam, x-rays, and/or surgical intervention. The patient elects to proceed with this endoscopic procedure. medical equipment was checked for proper function. Hand hygiene and appropriate measures for infection prevention was taken. After the risks, benefits and alternatives of the procedure were thoroughly explained, Informed consent was verified, confirmed and timeout was successfully executed by the treatment team. The patient was anesthetized with topical anesthesia and the EC-[id number] (Pedi C) endoscope was introduced through the mouth and advanced to the third portion of the duodenum. Retroflexion was not performed The gastroscope was then slowly withdrawn and removed. ESOPHAGUS: The mucosa of the esophagus appeared normal. STOMACH: A Severino -en-Y anastomosis was found. Ulceration was seen at the site. Multiple biopsies were performed using cold forceps. Sample sent for histology. DUODENUM: The duodenal mucosa appeared normal in the entire duodenum. ADVERSE EVENTS: There were no complications. IMPRESSIONS: 1. The esophagus appeared normal 2. Severino -en-Y anastomosis was found; multiple biopsies were performed 3. Normal duodenal mucosa in the entire duodenum 4. Retroflexion was not performed RECOMMENDATIONS: Await biopsy results. Biopsy results will not be ready for 7-10 days. If you don't hear from us in two weeks, call our office for biopsy results. PATIENT CONDITION: stable DISPOSITION: Observation REPEAT EXAM: NONE Terence Juan MD eSigned: Terence Juan MD 12/12/2017 2:24 PM cc: PATIENT NAME: Kiersten Carbone MR#: [id number]
--- NOTE | 2017-12-12 14:29 | GIPROC ---
[facility] [address] [facility]. [facility], [address] COLONOSCOPY PROCEDURE REPORT EXAM DATE: 12/12/2017 PATIENT NAME: Kiersten Carbone MR #: [id number] BIRTHDATE: 1950 ENDOSCOPIST: Terence Juan MD ORDER #: [id number] FORMING MACHINE UPKEEP MECHANIC: Jair Nava and Natacha Ocasio STATUS: inpatient INDICATIONS: The patient is a 67 yr old female here for a colonoscopy due to rectal bleeding PROCEDURE PERFORMED: Colonoscopy with biopsy MEDICATIONS: None and Per Anesthesia. PREP QUALITY: poor PREP TYPE:Magnesium Citrate ESTIMATED BLOOD LOSS: None CONSENT: The patient understands the risks and benefits of the procedure and understands that these risks include, but are not limited to: sedation, allergic reaction, infection, perforation and/or bleeding. Alternative means of evaluation and treatment include, among others: physical exam, x-rays, and/or surgical intervention. The patient elects to proceed with this endoscopic procedure. medical equipment was checked for proper function. Hand hygiene and appropriate measures for infection prevention was taken. After the risks, benefits and alternatives of the procedure were thoroughly explained, Informed consent was verified, confirmed and timeout was successfully executed by the treatment team. A digital exam revealed no abnormalities of the rectum The Pentax EC-[id number] endoscope was introduced through the anus and advanced to the cecum, which was identified by both the appendix and ileocecal valve. The instrument was then slowly withdrawn as the colon was fully examined. COLON FINDINGS: Multiple small non-bleeding non-bleeding, shallow and clean-based ulcers were found throughout the entire examined colon, at the cecum, and in the rectum. Biopsies were taken at edge of the ulcers, at the center of the ulcers and around the ulcers. Retroflexion was not performed due to a narrow rectal vault The scope was then completely withdrawn from the patient and the procedure terminated. PROCEDURE WITHDRAWAL TIME:9minutes ADVERSE EVENTS: There were no complications. IMPRESSIONS: 1. Multiple small non-bleeding ulcers were found throughout the entire examined colon, maily at the cecum, and in the rectum; biopsies were taken 2. Retroflexion was not performed due to a narrow rectal vault RECOMMENDATIONS: Await biopsy results. Biopsy results will not be ready for 7-10 days. If you don't hear from us in two weeks, call our office for results. RECALL: Return 1 year Colonoscopy Terence Juan MD eSigned: Terence Juan MD 12/12/2017 2:28 PM cc: PATIENT NAME: Kiersten Carbone MR#: [id number]
[2017-12-12] MEDS: MELATONIN 5 MG TAB PO SCH (21:21)
[2017-12-12] MEDS: MIRTAZAPINE 15 MG TAB PO SCH (21:21)
[2017-12-12] MEDS: ATORVASTATIN 40 MG TAB PO SCH (21:22)
[2017-12-13] VITALS (9 sets, daily range): BP systolic 95–131; BP diastolic 64–77; PULSE 80–101; RESP 12–24; TEMP 97.7–99.2; O2SAT 92–100
[2017-12-13] MEDS: PANTOPRAZOLE INJ 80 MG in SODIUM CHLORIDE 0.9% INJ 100 ML IV SCH (01:40)
[2017-12-13] MEDS: CHLORHEXIDINE GLUCONATE 2 % 1 PACK (2 CLOTHS) TOP SCH (02:16)
[2017-12-13] MEDS: INSULIN NovoLIN REGULAR SUPPLEMENTAL SCALE SQ SCH ×3 (05:49→17:51)
[2017-12-13] MEDS: LEVOTHYROXINE SODIUM 75 MCG TAB PO SCH (05:49)
[2017-12-13 06:21] LABS: AUTOMATED NEUTROPHIL # 5.6 TH/MM3 (1.8-7.7); BASOPHIL % 0.4 % (0.0-2.0); EOSINOPHIL # 0.2 TH/MM3 (0-0.4); HEMATOCRIT 32.4 % (35.0-46.0); HEMOGLOBIN 10.8 GM/DL (11.6-15.3); LYMPH % 23.6 % (9.0-44.0); LYMPHOCYTE # 1.9 TH/MM3 (1.0-4.8); MEAN CELL VOLUME 99.6 FL (80.0-100.0); MEAN CORPUSCULAR HEMOGLOBIN 33.2 PG (27.0-34.0); MEAN CORPUSCULAR HGB CONC 33.3 % (32.0-36.0); MEAN PLATELET VOLUME 9.6 FL (7.0-11.0); MONO % 4.8 % (0.0-8.0); MONOCYTE # 0.4 TH/MM3 (0-0.9); NEUT % 68.2 % (16.0-70.0); PLATELET COUNT 242 TH/MM3 (150-450); RED BLOOD COUNT 3.25 MIL/MM3 (4.00-5.30); RED CELL DISTRIBUTION WIDTH 15.3 % (11.6-17.2); WHITE BLOOD COUNT 8.2 TH/MM3 (4.0-11.0)
[2017-12-13 06:38] LABS: INTERNATIONAL NORMALIZED RATIO 1.3 RATIO; PROTHROMBIN TIME - PATIENT 12.9 SEC (9.8-11.6)
[2017-12-13 06:48] LABS: ALBUMIN 1.7 GM/DL (3.4-5.0); AST (GOT) 19 U/L (15-37); BICARBONATE 23.1 MEQ/L (21.0-32.0); BLOOD UREA NITROGEN 7 MG/DL (7-18); CALCIUM 8.1 MG/DL (8.5-10.1); CHLORIDE 110 MEQ/L (98-107); CREATININE 0.63 MG/DL (0.50-1.00); GLOMERULAR FILTRATION RATE 95 ML/MIN (>89); GLUCOSE,RANDOM 88 MG/DL (74-106); MAGNESIUM 2.2 MG/DL (1.5-2.5); SODIUM (NA) 143 MEQ/L (136-145)
[2017-12-13 06:52] LABS: ALKALINE PHOSPHATASE 230 U/L (45-117); ALT (GPT) 18 U/L (10-53); CHOLESTEROL 60 MG/DL (120-200); CHOLESTEROL/ HDL RATIO 1.24 RATIO; HDL CHOLESTEROL 48.2 MG/DL (40.0-60.0); PHOSPHORUS 3.2 MG/DL (2.5-4.9); TOTAL BILIRUBIN ADULT 0.4 MG/DL (0.2-1.0); TOTAL PROTEIN 3.9 GM/DL (6.4-8.2); TRIGLYCERIDES 64 MG/DL (42-150); TROPONIN I LESS THAN 0.02 NG/ML (0.02-0.05)
[2017-12-13 06:55] LABS: LDL CHOLESTEROL ND MG/DL (0-99)
[2017-12-13] MEDS: RESP: ALBUTEROL 2.5 MG/IPRATROPIUM 0.5 MG NEB (SCH) NEB ×3 (08:28→20:00)
[2017-12-13] MEDS: SODIUM CHLORIDE 0.9% FLUSH 10 ML FLUSH IV FLUSH SCH ×2 (09:00→20:32)
[2017-12-13] MEDS: VANCOMYCIN 500 MG VIAL (FOR ORAL USE ONLY) PO SCH ×4 (09:36→20:31)
[2017-12-13] MEDS: DIGOXIN 0.125 MG TAB PO SCH (09:36)
[2017-12-13] MEDS: levETIRAcetam 500 MG TAB PO SCH ×2 (09:36→20:31)
[2017-12-13] MEDS: CHOLECALCIFEROL (VIT D3) 1000 UNIT TAB PO SCH (09:36)
[2017-12-13] MEDS: MULTIVITAMIN TAB PO SCH (09:36)
[2017-12-13] MEDS: FERROUS SULFATE 325 MG (65 MG ELEMENTAL IRON) TAB PO SCH ×2 (09:36→17:50)
[2017-12-13] MEDS: THIAMINE INJ 100 MG in SODIUM CHLORIDE 0.9% INJ 100 ML IV SCH (09:37)
[2017-12-13] MEDS: buPROPion HCL 75 MG TAB PO SCH ×2 (09:37→20:31)
--- NOTE | 2017-12-13 11:23 | HHI.GIFU ---
Subjective Remarks Pt resting in bed States is having difficulty eating because she left her teeth at Rehab Denies abdominal pain No BM since GI procedures yesterday Denies nausea, vomiting (Yane Guevara) Objective Vitals I&O Vital Signs Date Time Temp Pulse Resp B/P (MAP) Pulse Ox O2 Delivery O2 Flow Rate FiO2 12/13/17 08:29 96 Nasal Cannula 2.00 12/13/17 08:00 97 Nasal Cannula 2.00 12/13/17 08:00 86 12/13/17 08:00 97.8 80 16 113/69 (84) 97 12/13/17 04:00 97.7 85 24 95/64 (74) 94 12/13/17 00:00 98.9 88 17 106/66 (79) 95 12/12/17 22:02 95 Nasal Cannula 4.00 12/12/17 20:00 98.7 90 17 105/67 (80) 96 12/12/17 20:00 82 12/12/17 19:36 93 21 12/12/17 16:00 89 12/12/17 16:00 98.6 82 19 102/61 (75) 95 12/12/17 14:00 88 12/12/17 12:00 93 12/12/17 12:00 98.3 91 20 97/63 (74) 92 I/O 12/12/17 12/12/17 12/12/17 12/13/17 12/13/17 12/13/17 07:00 15:00 23:00 07:00 15:00 23:00 Intake Total 1320 ml 300 ml 120 ml 1307 ml Output Total 400 ml Balance 1320 ml 300 ml 120 ml -400 ml 1307 ml Intake Oral 120 ml 120 ml IV Total 1320 ml 1187 ml Other 300 ml Output Urine Total 400 ml # Voids 5 5 4 # Bowel Movements 4 2 1 Laboratory Laboratory Tests Test 12/13/17 05:54 White Blood Count 8.2 Red Blood Count 3.25 Hemoglobin 10.8 Hematocrit 32.4 Mean Corpuscular Volume 99.6 Mean Corpuscular Hemoglobin 33.2 Mean Corpuscular Hemoglobin Concent 33.3 Red Cell Distribution Width 15.3 Platelet Count 242 Mean Platelet Volume 9.6 Neutrophils (%) (Auto) 68.2 Lymphocytes (%) (Auto) 23.6 Monocytes (%) (Auto) 4.8 Eosinophils (%) (Auto) 3.0 Basophils (%) (Auto) 0.4 Neutrophils # (Auto) 5.6 Lymphocytes # (Auto) 1.9 Monocytes # (Auto) 0.4 Eosinophils # (Auto) 0.2 Basophils # (Auto) 0.0 CBC Comment DIFF FINAL Differential Comment Prothrombin Time 12.9 Prothromb Time International Ratio 1.3 Activated Partial Thromboplast Time 22.8 Fibrinogen 92 Blood Urea Nitrogen 7 Creatinine 0.63 Random Glucose 88 Total Protein 3.9 Albumin 1.7 Calcium Level 8.1 Phosphorus Level 3.2 Magnesium Level 2.2 Alkaline Phosphatase 230 Aspartate Amino Transf (AST/SGOT) 19 Alanine Aminotransferase (ALT/SGPT) 18 Total Bilirubin 0.4 Sodium Level 143 Potassium Level 3.6 Chloride Level 110 Carbon Dioxide Level 23.1 Anion Gap 10 Estimat Glomerular Filtration Rate 95 Lactic Acid Level 1.9 Total Creatine Kinase 36 Troponin I LESS THAN 0.02 Triglycerides Level 64 Cholesterol Level 60 LDL Cholesterol HDL Cholesterol 48.2 Cholesterol/HDL Ratio 1.24 Imaging Last Impressions Lower Extremity Ultrasound 12/12/17 0000 Signed Impressions: CONCLUSION: The study is negative for bilateral lower extremity deep venous thrombosis. Chest X-Ray 12/12/17 Signed Impressions: CONCLUSION: No acute pulmonary infiltrates. Abdomen/Pelvis CT 12/11/17 0000 Signed Impressions: CONCLUSION: 1. Cirrhosis of the liver without evidence of concerning mass. No evidence of ascites. 2. Fluid identified within the sigmoid colon without evidence of adjacent wall thickening or inflammatory change. There is a radiopaque 1.6 cm ovoid object i dentified within the fluid-filled rectosigmoid colon which may represent a supp ository. Similar appearing tablet is identified within the transverse colon. Physical Exam HEENT: Normocephalic; atraumatic CHEST: Even/unlabored CARDIAC: RRR ABDOMEN: Soft, nondistended, nontender; bowel sounds active SKIN: Pale SIZE MAKER: Alert and oriented times three. (Yane Guevara) Assessment and Plan Plan Assessment: - Rectal bleeding- began early this morning- sent from rehab for evaluation. Pt started on Eliquis in the beginning of November for DVT and PE after surgery for right femur fracture, last dose of Eliquis was yesterday. Pt unsure of color of stool but according to attending was maroon with clots. H/H currently stable, recheck ordered for 1pm Pt denies history of GIB. No ETOH in one month. Denies smoking. Denies NSAIDs. Last EGD was approx 10 years ago, states normal exam. Last colonoscopy was prior to gastric bypass in 2005 and she believes this was also a normal exam. Denies family history of colon cancer. CT abdomen and pelvis W IV contrast (12/11)--> Cirrhosis of the liver without evidence of concerning mass. No evidence of ascites. Fluid identified within the sigmoid colon without evidence of adjacent wall thickening or inflammatory change. There is a radiopaque 1.6 cm ovoid object identified within the fluid-filled rectosigmoid colon which may represent a suppository. Similar appearing tablet is identified within the transverse colon. (12/13) S/P EGD and colonoscopy yesterday. Pt reports no BMs over night, denies nausea, vomiting, abdominal pain. Have a hard time eating because she left her teeth at the rehab and can not chew. C. Diff is positive- she is unsure of history of this- on PO Vanco H/H stable over night EGD -->The esophagus appeared normal. Severino -en-Y anastomosis was found; multiple biopsies were performed. Normal duodenal mucosa in the entire duodenum Colonoscopy --> Multiple small non-bleeding ulcers were found throughout the entire examined colon, mainly at the cecum, and in the rectum; biopsies were taken Plan: Soft diet- does not have teeth EGD/colonoscopy biopsy pending Continue treatment for C. Diff Monitor H/H DC Protonix gtt GI will sign off, have pt follow up in the office regarding biopsy results Reconsult as needed Pt has been seen and examined by myself and Dr. Juan and this note is written on his behalf (Yane Guevara) Physician Comments As above, biopsies pending, please notify us if needed. (Terence Juan MD) Yane Guevara Dec 13, 2017 11:23 Terence Juan MD Dec 13, 2017 12:29
[2017-12-13] MEDS: SODIUM CHLORIDE IV SCH ×4 (11:58→19:45)
[2017-12-13] MEDS: WATE IV SCH ×4 (11:58→19:45)
[2017-12-13] MEDS: DEXTROSE 5% IV SCH ×4 (11:58→19:45)
--- NOTE | 2017-12-13 17:13 | HHI.PR ---
Subjective Remarks Resting comfortably in bed No event overnight Denied chest and or short of breath No fever or chills Objective Vitals Vital Signs Date Time Temp Pulse Resp B/P (MAP) Pulse Ox O2 Delivery O2 Flow Rate FiO2 12/13/17 12:00 98.2 96 12 110/69 (83) 95 12/13/17 11:47 93 21 12/13/17 08:29 96 Nasal Cannula 2.00 12/13/17 08:00 97 Nasal Cannula 2.00 12/13/17 08:00 86 12/13/17 08:00 97.8 80 16 113/69 (84) 97 12/13/17 04:00 97.7 85 24 95/64 (74) 94 12/13/17 00:00 98.9 88 17 106/66 (79) 95 12/12/17 22:02 95 Nasal Cannula 4.00 12/12/17 20:00 98.7 90 17 105/67 (80) 96 12/12/17 20:00 82 12/12/17 19:36 93 21 I/O 12/12/17 12/12/17 12/12/17 12/13/17 12/13/17 12/13/17 07:00 15:00 23:00 07:00 15:00 23:00 Intake Total 1320 ml 300 ml 120 ml 2407 ml Output Total 400 ml Balance 1320 ml 300 ml 120 ml -400 ml 2407 ml Intake Oral 120 ml 120 ml IV Total 1320 ml 2287 ml Other 300 ml Output Urine Total 400 ml # Voids 5 5 4 # Bowel Movements 4 2 1 Result Diagram: 12/13/17 0554 12/13/17 0554 Objective Remarks GENERAL: This is a well-nourished, well-developed patient, in no apparent distress. CARDIOVASCULAR: RRR, no gallops, or rubs. RESPIRATORY: Fair air entry bilaterally. No W, R, or R GASTROINTESTINAL: Abdomen soft, non-tender, nondistended. Positive bowel sounds MUSCULOSKELETAL: Extremities without clubbing, cyanosis, or edema. Pedal pulses appreciated NEUROLOGICAL: Awake and alert. Moves all extremity. Normal speech.no focal neurological deficit A/P Problem List: (1) GI bleed ICD Code: K92.2 - Gastrointestinal hemorrhage, unspecified Status: Acute (2) Anticoagulated by anticoagulation treatment ICD Code: Z79.01 - gambling broker (current) use of anticoagulants Status: Acute (3) HTN (hypertension) ICD Code: I10 - Essential (primary) hypertension Status: Chronic (4) Pulmonary embolism ICD Code: I26.99 - Other pulmonary embolism without acute cor pulmonale Status: Acute (5) DVT (deep venous thrombosis) ICD Code: I82.409 - Acute embolism and thrombosis of unspecified deep veins of unspecified lower extremity Status: Acute (6) Impaired mobility and activities of daily living ICD Code: Z74.09 - Other reduced mobility Status: Chronic Assessment and Plan 7 yo female who presents to [facility] from [facility] due to GI bleeding. She has a PMH of atrial fibrillation, hypertension, hyperlipidemia, GERD, hypothyroidism, prior gastric bypass in 2005 in [place].. She has decreased mobility at baseline and uses combination of walker/wheelchair/motorized scooter. She experienced a fall on 11/08 and had right femur fracture for which she underwent ORIF 11/09/[address] Gonzalez. She has not previously been anticoagulated for her long-standing history of atrial fibrillation, however she was started on Eliquis for treatment of DVT and RUL PE on 11/10 and her last dose was 12/10 at 9 PM. She has noted some increased bruising of her arms and legs over the last couple of weeks. Last night she had two bowel movements with dark bloody stool and clots. Her blood pressure at rehab was 96/58. Mean arterial pressure has been 73-78 in the emergency department. Heart rate is in the 60s-70s and she is on multiple AV lloyd blocking agents for atrial fibrillation. She denies any nausea, vomiting, abdominal pain, fever. There is some mention of chest pain on her EVAC run sheet however patient tells me she never had any chest pain or shortness of breath.. She denies prior issues with GI bleeding. She states her last EGD and colonoscopy were performed in 2005 prior to her gastric bypass and were normal. Denies NSAID use. In the ED she has received normal saline bolus 500 mL 2. Her hemoglobin is 12.1 SUBJECTIVE: 12/12: Currently on 4 L nasal cannula and acutely hypoxic yesterday. Received 1L normal saline in ED along with 1 L LR yesterday. Chest x-ray this a.m. reveals no acute pulmonary finding. Appears comfortable.. Diagnosed with C. difficile overnight. Started on oral vancomycin by overnight mortgage loan officer. 12/13: Continue current management IV fluid, monitor CBC, O2, vancomycin for C. difficile, GI following status post EGD: A EGD -->The esophagus appeared normal. Severino -en-Y anastomosis was found; multiple biopsies were performed. Normal duodenal mucosa in the entire duodenum Colonoscopy --> Multiple small non-bleeding ulcers were found throughout the entire examined colon, mainly at the cecum, and in the rectum; biopsies were taken DC Protonix drip, monitor clinical improvement for C. difficile colitis A/P system: History of seizure 5 years ago on chronic antiepileptic medication Depression disorder NOS Insomnia Daily EtOH use Currently on levetiracetam 500 mg by mouth twice daily. Continue Melatonin 6 mg p.o. nightly for sleep switch to 5 mg daily per hospital pharmacy protocol Continue bupropion 150 mg p.o. twice daily/home medication for depression Continue mirtazapine 15 mg p.o. nightly Acetaminophen 650 mg by mouth every 6 hours as needed fever Hydrocodone/acetaminophen 5/325 1 tablet every 4 hours as needed pain 1 through 5 Morphine sulfate 2 mg IV every 2 hours as needed pain 6 or 10 Thiamine 100 mg IV daily 3 days. Monitor for DTs RESP: Acute respiratory insufficiency Nasal cannula to maintain saturations greater than or equal to 92%. Currently on 4 L Incentive spirometry every hour while awake Albuterol/ipratropium aerosols every 6 hours with albuterol aerosols every 2 hours as needed dyspnea Follow-up chest x-ray this a.m. revealed no acute cardiopulmonary findings CV: Hypertension/essential Hyperlipidemia Atrial fibrillation -currently normal sinus rhythm Right upper lobe pulmonary embolus 11/25 Mild TR Monitor hemodynamics Hold metoprolol tartrate 12.5 mill grams p.o. twice daily for now. Holding diltiazem extended release 120 mg po daily with borderline blood pressures in hospital acute bleeding Digoxin level 1.1. Continue digoxin 0.125 mg p.o. daily/home medication Hyperlipidemia continue atorvastatin 40 mg p.o. nightly 2D echo 11/16/17 -EF 55-60%/mild TR. Normal LV function. Pulmonary arterial pressure 36 mmHg GI: GI bleeding GERD History of gastric bypass 2005 Cirrhotic features liver Chronic moderate protein energy malnutrition/hypoalbuminemia Elevated alkaline phosphatase Currently n.p.o. status Pantoprazole drip at 8 mg an hour. Serial hemoglobin with transfusion every 6 hours. No current indication for blood transfusion Gastro enterology consult appreciated. Plan for EGD/colonoscopy today. Receive magnesium citrate prep Holding apixaban. CT abdomen/pelvis revealed bilateral small pleural effusions, cirrhotic/nodular features liver, colonic thickening. Possibly retained suppository placed. FEN/RENAL: Monitor intake and output and creatinine. Monitor electrolytes and replace as indicated per ICU electrolyte replacement protocol. Currently on D5 one third normal saline at 84 cc an hour ID: C. difficile positive Placed on oral vancomycin 125 mg by mouth 4 times daily 10 day per new ISDA recommendations with white blood cell count less than 15,000 creatinine less than 1.5 Monitor for signs and symptoms of infection/alternate HEME/ONC: Anticoagulation with Eliquis Nonocclusive DVT right common femoral vein 11/11/17 Hold apixaban 5 mg twice daily. Serial hemoglobin every 6 hours and transfuse as indicated for hemoglobin less than 7 or hemodynamic changes. U/s 11/11/17 nonocclusive DVT right common femoral vein. Continue ferrous sulfate 325 mg po bid. ENDO: Hypothyroidism Hypoglycemia Continue levothyroxine 75 mcg by mouth daily. TSH 2.62. Currently D5 one third normal saline at 84 cc an hour due to admission with hypoglycemia. Accu-Cheks every 6 hours with Novulog/low regimen MSK: Osteoarthritis Recent right hip fracture status post ORIF Osteoporosis Appears she was no longer on calcitonin, so this has been held Cholecalciferol 1000 units daily to be resumed when clinically indicated PT/OT evaluate and treat Patient is on zinc sulfate 220 mg twice daily at home PROPH: SCDs for DVT prophylaxis. Hold Pharmacologic DVT prophylaxis due to active bleeding. Pantoprazole drip as per above. ACCESS: Peripheral IV providing adequate access at this time. Problem Qualifiers (1) Pulmonary embolism: (2) DVT (deep venous thrombosis): Qualified Codes: I82.411 - Acute embolism and thrombosis of right femoral vein La Ag MD Dec 13, 2017 17:13
[2017-12-13] MEDS: ATORVASTATIN 40 MG TAB PO SCH (20:31)
[2017-12-13] MEDS: MELATONIN 5 MG TAB PO SCH (20:31)
[2017-12-13] MEDS: MIRTAZAPINE 15 MG TAB PO SCH (20:31)
[2017-12-14] VITALS: BP 99/62; PULSE 94; RESP 18; TEMP 97.8; O2SAT 91
[2017-12-14] MEDS: SODIUM CHLORIDE IV SCH ×2 (00:11)
[2017-12-14] MEDS: DEXTROSE 5% IV SCH ×2 (00:11)
[2017-12-14] MEDS: WATE IV SCH ×2 (00:11)
[2017-12-14 04:00] VITALS: BP 110/58; PULSE 91; RESP 18; TEMP 98.1; O2SAT 92
[2017-12-14] MEDS: CHLORHEXIDINE GLUCONATE 2 % 1 PACK (2 CLOTHS) TOP SCH (04:00)
[2017-12-14] MEDS: INSULIN NovoLIN REGULAR SUPPLEMENTAL SCALE SQ SCH ×3 (06:00→11:50)
[2017-12-14] MEDS: LEVOTHYROXINE SODIUM 75 MCG TAB PO SCH (06:18)
[2017-12-14 07:14] LABS: AUTOMATED NEUTROPHIL # 8.7 TH/MM3 (1.8-7.7); BASOPHIL % 0.3 % (0.0-2.0); EOSINOPHIL # 0.3 TH/MM3 (0-0.4); EOSINOPHIL % 2.5 % (0.0-4.0); HEMOGLOBIN 11.4 GM/DL (11.6-15.3); LYMPH % 15.7 % (9.0-44.0); LYMPHOCYTE # 1.8 TH/MM3 (1.0-4.8); MEAN CELL VOLUME 100.4 FL (80.0-100.0); MEAN CORPUSCULAR HEMOGLOBIN 32.7 PG (27.0-34.0); MEAN CORPUSCULAR HGB CONC 32.6 % (32.0-36.0); MEAN PLATELET VOLUME 9.6 FL (7.0-11.0); MONO % 5.1 % (0.0-8.0); MONOCYTE # 0.6 TH/MM3 (0-0.9); NEUT % 76.4 % (16.0-70.0); PLATELET COUNT 249 TH/MM3 (150-450); RED BLOOD COUNT 3.49 MIL/MM3 (4.00-5.30); RED CELL DISTRIBUTION WIDTH 15.2 % (11.6-17.2); WHITE BLOOD COUNT 11.4 TH/MM3 (4.0-11.0)
[2017-12-14 08:00] VITALS: BP 115/64; PULSE 88; RESP 18; TEMP 98.3; O2SAT 95
[2017-12-14] MEDS: THIAMINE INJ 100 MG in SODIUM CHLORIDE 0.9% INJ 100 ML IV SCH (08:23)
[2017-12-14] MEDS: buPROPion HCL 75 MG TAB PO SCH (08:24)
[2017-12-14] MEDS: levETIRAcetam 500 MG TAB PO SCH (08:25)
[2017-12-14] MEDS: MULTIVITAMIN TAB PO SCH (08:25)
[2017-12-14] MEDS: CHOLECALCIFEROL (VIT D3) 1000 UNIT TAB PO SCH (08:25)
[2017-12-14] MEDS: DIGOXIN 0.125 MG TAB PO SCH (08:25)
[2017-12-14] MEDS: VANCOMYCIN 500 MG VIAL (FOR ORAL USE ONLY) PO SCH ×2 (08:25→12:12)
[2017-12-14] MEDS: FERROUS SULFATE 325 MG (65 MG ELEMENTAL IRON) TAB PO SCH (08:25)
[2017-12-14] MEDS: SODIUM CHLORIDE 0.9% FLUSH 10 ML FLUSH IV FLUSH SCH (08:26)
[2017-12-14 08:48] VITALS: O2SAT 93
[2017-12-14] MEDS: RESP: ALBUTEROL 2.5 MG/IPRATROPIUM 0.5 MG NEB (SCH) NEB ×2 (08:48→12:34)
[2017-12-14] MEDS ORDERED: PANTOPRAZOLE SOD 40 MG DELAYED RELEASE TAB PO SCH (09:00)
--- NOTE | 2017-12-14 09:43 | HHI.PR ---
Subjective Remarks in no acute distress. denies abdominal pain, nausea. no diarrhea. afebrile. no new complaints. Objective Vitals Vital Signs Date Time Temp Pulse Resp B/P (MAP) Pulse Ox O2 Delivery O2 Flow Rate FiO2 12/14/17 08:48 93 21 12/14/17 04:00 98.1 91 18 110/58 (75) 92 12/14/17 00:00 97.8 94 18 99/62 (74) 91 12/13/17 22:46 98.2 98 18 122/66 (84) 96 12/13/17 20:00 Room Air 12/13/17 20:00 99 12/13/17 20:00 99.2 100 15 131/77 (95) 100 12/13/17 19:42 19 12/13/17 16:00 98.2 101 18 107/66 (80) 92 12/13/17 12:00 98.2 96 12 110/69 (83) 95 12/13/17 12:00 Room Air 12/13/17 11:47 93 21 I/O 12/13/17 12/13/17 12/13/17 12/14/17 12/14/17 12/14/17 07:00 15:00 23:00 07:00 15:00 23:00 Intake Total 2407 ml 600 ml 1501 ml Output Total 400 ml 300 ml Balance -400 ml 2407 ml 300 ml 1501 ml Intake Oral 120 ml 600 ml IV Total 2287 ml 1501 ml Output Urine Total 400 ml 300 ml # Voids 4 # Bowel Movements 1 0 Result Diagram: 12/14/17 0634 12/13/17 0554 Imaging Last Impressions Lower Extremity Ultrasound 12/12/17 0000 Signed Impressions: CONCLUSION: The study is negative for bilateral lower extremity deep venous thrombosis. Chest X-Ray 12/12/17 0000 Signed Impressions: CONCLUSION: No acute pulmonary infiltrates. Abdomen/Pelvis CT 12/11/17 0000 Signed Impressions: CONCLUSION: 1. Cirrhosis of the liver without evidence of concerning mass. No evidence of ascites. 2. Fluid identified within the sigmoid colon without evidence of adjacent wall thickening or inflammatory change. There is a radiopaque 1.6 cm ovoid object i dentified within the fluid-filled rectosigmoid colon which may represent a supp ository. Similar appearing tablet is identified within the transverse colon. Objective Remarks GENERAL: This is a well-nourished, well-developed patient, in no apparent distress. CARDIOVASCULAR: Regular rate and regular rhythm without murmurs, gallops, or rubs. RESPIRATORY: Clear to auscultation. Breath sounds equal bilaterally. No wheezes , rales, or rhonchi. GASTROINTESTINAL: Abdomen soft, non-tender, nondistended. Normal, active bowel sounds MUSCULOSKELETAL: Extremities without clubbing, cyanosis, or edema. NEURO: Alert & Oriented x4 to person, place, time, situation. Moves all ext x4 Procedures EGD/ colonoscopy. Medications and IVs Inpatient Medications Acetaminophen/ Hydrocodone Bitart ([place] 5-325 Mg) 1 tab Q4H PRN PO PAIN SCALE 1 TO 5 Last administered on 12/13/17at 18:42; Start 12/11/17 at 08:30 Albuterol Sulfate (Albuterol Neb) 2.5 mg Q2HR NEB PRN INH SOB/WHEEZING; Start 12/11/17 at 08:30 Albuterol/ Ipratropium (Duoneb Neb) 1 ampule Q6HR WHILE AWAKE NEB NEB Last administered on 12/14/17at 08:48; Start 12/12/17 at 08:00 Atorvastatin Calcium (Lipitor) 40 mg HS PO Last administered on 12/13/17at 20:31 ; Start 12/11/17 at 21:00 Bupropion HCl (Wellbutrin) 150 mg BID PO Last administered on 12/14/17at 08:24; Start 12/11/17 at 11:00 Chlorhexidine Gluconate (Chlorhexidine 2% Cloth) 3 pack UNSCH PRN TOP HYGIENIC CARE; Start 12/11/17 at 08:30 Cholecalciferol (Vitamin D3) 1,000 units DAILY PO Last administered on at 08:25; Start 12/11/17 at 09:00 Dextrose (D50w (Vial) Inj) 50 ml UNSCH PRN IV PUSH HYPOGLYCEMIA-SEE COMMENTS; Start 12/12/17 at 07:15 Dextrose/Sodium Chloride 1,000 ml @ 84 mls/hr [id number] IV Last administered on 12/12/17at 06:30; Start 12/12/17 at 06:30; Stop 12/12/17 at 07:31; Status DC Digoxin (Lanoxin) 0.125 mg DAILY PO Last administered on 12/14/17at 08:25; Start 12/11/17 at 10:00 Diltiazem HCl (Cardizem Cd) 120 mg DAILY PO ; Start 12/11/17 at 15:30; Status Future Hold Ferrous Sulfate (Ferrous Sulfate) 325 mg BIDPC PO Last administered on at 08:25; Start 12/11/17 at 10:00 Glucagon (Glucagon Inj) 1 mg UNSCH PRN OTHER HYPOGLYCEMIA-SEE COMMENTS; Start 12/12/17 at 07:15 Insulin Human Regular (NovoLIN R SUPPLEMENTAL SCALE) 1 Q6HR SQ ; Start 12/12/17 at 12:00 Lactated Ringer's 1,000 ml @ 999 mls/hr BOLUS ONCE IV Last administered on 12/11/17at 17:40; Start 12/11/17 at 16:15; Stop 12/11/17 at 17:15; Status DC Levetriacetam (Keppra) 500 mg BID PO Last administered on 12/14/17at 08:25; Start 12/11/17 at 10:00 Levothyroxine Sodium (Synthroid) 75 mcg DAILY@0600 PO Last administered on at 06:18; Start 12/12/17 at 06:00 Magnesium Citrate (Citroma Liq) 300 ml ONCE ONCE PO Last administered on at 18:00; Start 12/11/17 at 18:00; Stop 12/11/17 at 18:01; Status DC Magnesium Oxide (Mag-Ox) 800 mg UNSCH PRN PO For Magnesium 1.2 - 1.6 mg/dL; Start 12/11/17 at 09:15 Magnesium Sulfate 2 gm/Sodium Chloride 100 ml @ 50 mls/hr UNSCH PRN IV For Magnesium 1.2 - 1.6 mg/dL; Start 12/11/17 at 09:15 Magnesium Sulfate 4 gm/Sodium Chloride 100 ml @ 50 mls/hr UNSCH PRN IV For Magnesium 0.9 - 1.1 mg/dL; Start 12/11/17 at 09:15 Melatonin (Melatonin) 5 mg HS PO Last administered on 12/13/17at 20:31; Start 12/11/17 at 21:00 Metoclopramide HCl (Reglan Inj) 5 mg Q8H PRN IV PUSH NAUSEA Last administered on 12/13/17 11:58; Start 12/11/17 at 08:45 Mirtazapine (Remeron) 15 mg HS PO Last administered on 12/13/17 20:31; Start at 21:00 Miscellaneous Information ([facility]) 1 [id number] Last administered on 12/11/17 10:08; Start 12/11/17 at 08:30 Multivitamins (Theragran) 1 tab DAILY PO Last administered on 12/14/17 08:25; Start 12/11/17 at 10:00 Pantoprazole Sodium (Protonix) 40 mg DAILY PO Last administered on 12/14/17 08: 25; Start 12/14/17 at 09:00 Pantoprazole Sodium 80 mg/ Sodium Chloride 100 ml @ 10 mls/hr Q10H IV Last administered on 12/13/17 01:40; Start 12/11/17 at 09:40; Stop 12/13/17 at 11:25; Status DC Phytonadione 10 mg/Sodium Chloride 51 ml @ 102 mls/hr ONCE ONCE IV Last administered on 12/11/17 18:00; Start 12/11/17 at 18:00; Stop 12/11/17 at 18:29; Status DC Potassium Phosphate (K-Phos) 2,000 mg UNSCH PRN PO/TUBE SEE LABEL COMMENTS; Start 12/11/17 at 09:15 Potassium Phosphate 30 mmol/ Sodium Chloride 260 ml @ 42 mls/hr UNSCH PRN IV SEE LABEL COMMENTS; Start 12/11/17 at 09:15 Potassium Bicarb/ Potassium Chloride (K-Lyte Cl Eff) 50 meq UNSCH PRN PO For Potassium 3.3 - 3.5 mEq/L; Start 12/11/17 at 09:15 Potassium Chloride 100 ml @ 50 mls/hr Q2H PRN IV For Potassium 3.3 - 3.5 mEq/L ; Start 12/11/17 at 09:15 Prothrombin Complex Concent (Human) 2500 units/Syringe / Bag 100 ml @ 360 mls/ hr ONCE ONCE IV ; Start 12/11/17 at 06:45; Stop 12/11/17 at 06:45; Status DC Sodium Chloride (NS Flush) 2 ml BID IV FLUSH Last administered on 6/4/18at 21: 22; Start 12/11/17 at 09:00 Sodium Chloride 51.3 meq/Dextrose 1,000 ml @ 84 mls/hr [id number] IV Last administered on 12/14/17at 00:11; Start 12/12/17 at 08:00 Sodium Phosphate 30 mmol/Sodium Chloride 250 ml @ 42 mls/hr UNSCH PRN IV For Phosphorus < 2.5 mg/dL; Start 12/11/17 at 09:15 Thiamine HCl 100 mg/Sodium Chloride 101 ml @ 101 mls/hr DAILY IV Last administered on 12/14/17at 08:23; Start 12/12/17 at 09:00; Stop 12/15/17 at 08:59 Vancomycin HCl (VANCOMYCIN for oral use only) 125 mg QID PO Last administered on 12/14/17at 08:25; Start 12/12/17 at 09:00; Stop 12/22/17 at 08:59 A/P Problem List: (1) GI bleed ICD Code: K92.2 - Gastrointestinal hemorrhage, unspecified Status: Acute (2) Anticoagulated by anticoagulation treatment ICD Code: Z79.01 - terminal block assembler (current) use of anticoagulants Status: Acute (3) HTN (hypertension) ICD Code: I10 - Essential (primary) hypertension Status: Chronic (4) Pulmonary embolism ICD Code: I26.99 - Other pulmonary embolism without acute cor pulmonale Status: Acute (5) DVT (deep venous thrombosis) ICD Code: I82.409 - Acute embolism and thrombosis of unspecified deep veins of unspecified lower extremity Status: Acute (6) Impaired mobility and activities of daily living ICD Code: Z74.09 - Other reduced mobility Status: Chronic Assessment and Plan History of seizure 5 years ago on chronic antiepileptic medication Depression disorder NOS Insomnia Daily EtOH use Currently on levetiracetam 500 mg by mouth twice daily. Continue Melatonin 6 mg p.o. nightly for sleep switch to 5 mg daily per hospital pharmacy protocol Continue bupropion 150 mg p.o. twice daily/home medication for depression Continue mirtazapine 15 mg p.o. nightly Acetaminophen 650 mg by mouth every 6 hours as needed fever Hydrocodone/acetaminophen 5/325 1 tablet every 4 hours as needed pain 1 through 5 Acute respiratory insufficiency-resolved. Hypertension/essential Hyperlipidemia Atrial fibrillation -currently normal sinus rhythm Right upper lobe pulmonary embolus 11/25 Mild TR resume metoprolol at a lower dose- hold cardizem- resume eliquis ( ok with GI- d /w ). Digoxin level 1.1. Continue digoxin 0.125 mg p.o. daily/home medication Hyperlipidemia continue atorvastatin 40 mg p.o. nightly 2D echo 11/16/17 -EF 55-60%/mild TR. Normal LV function. Pulmonary arterial pressure 36 mmHg GI bleeding GERD History of gastric bypass 2005 Cirrhotic features liver Chronic moderate protein energy malnutrition/hypoalbuminemia Elevated alkaline phosphatase s/p EGD and colonoscopy; biopsies done and pending. EGD -->The esophagus appeared normal. Severino -en-Y anastomosis was found; multiple biopsies were performed. Normal duodenal mucosa in the entire duodenum Colonoscopy --> Multiple small non-bleeding ulcers were found throughout the entire examined colon, mainly at the cecum, and in the rectum; biopsies were taken resume apixaban; ok with GI. CT abdomen/pelvis revealed bilateral small pleural effusions, cirrhotic/nodular features liver, colonic thickening. Possibly retained suppository placed. C. difficile positive Placed on oral vancomycin 125 mg by mouth 4 times daily 10 day Anticoagulation with Eliquis Nonocclusive DVT right common femoral vein 11/11/17 resume eliquis U/s 11/11/17 nonocclusive DVT right common femoral vein. Continue ferrous sulfate 325 mg po bid. Hypothyroidism Hypoglycemia Continue levothyroxine 75 mcg by mouth daily. TSH 2.62. Osteoarthritis Recent right hip fracture status post ORIF Osteoporosis Cholecalciferol 1000 units daily to be resumed when clinically indicated PT/OT evaluate and treat Patient is on zinc sulfate 220 mg twice daily at home Discharge Planning dc to SNF. see med list. f/u; pcp and GI. d/w the patient. time spent 35 min. Problem Qualifiers (1) Pulmonary embolism: (2) DVT (deep venous thrombosis): Qualified Codes: I82.411 - Acute embolism and thrombosis of right femoral vein Laura Valentino MD Dec 14, 2017 09:43
[2017-12-14] MEDS ORDERED: VANC500I3 PO (09:47)
[2017-12-14] MEDS ORDERED: HYDR-3516 PO (09:47)
[2017-12-14] MEDS ORDERED: PANT40TA3 PO (09:47)
--- NOTE | 2017-12-14 09:48 | HHI.DS ---
Discharge Summary Admission Date Dec 11, 2017 at 06:44 Discharge Date: Dec 14, 2017 Admitting Diagnosis GI BLEED w/ eliquis (1) GI bleed ICD Code: K92.2 - Gastrointestinal hemorrhage, unspecified Diagnosis: Principal Status: Acute (2) Anticoagulated by anticoagulation treatment ICD Code: Z79.01 - penitentiary (current) use of anticoagulants Diagnosis: Principal Status: Acute (3) HTN (hypertension) ICD Code: I10 - Essential (primary) hypertension Diagnosis: Secondary Status: Chronic (4) Pulmonary embolism ICD Code: I26.99 - Other pulmonary embolism without acute cor pulmonale Diagnosis: Secondary Status: Acute (5) DVT (deep venous thrombosis) ICD Code: I82.409 - Acute embolism and thrombosis of unspecified deep veins of unspecified lower extremity Diagnosis: Secondary Status: Acute (6) Impaired mobility and activities of daily living ICD Code: Z74.09 - Other reduced mobility Diagnosis: Secondary Status: Chronic Procedures EGD/ colonoscopy. Brief History - From Admission 67 yo female who presents to [facility] [place] from [facility] due to GI bleeding. She has a PMH of atrial fibrillation, hypertension, hyperlipidemia, GERD, hypothyroidism, prior gastric bypass in 2005 in [place].. She has decreased mobility at baseline and uses combination of walker/wheelchair/motorized scooter. She experienced a fall on 11/08 and had right femur fracture for which she underwent ORIF 11/09/[address] Gonzalez. She has not previously been anticoagulated for her long-standing history of atrial fibrillation, however she was started on Eliquis for treatment of DVT and RUL PE on 11/10 and her last dose was 12/10 at 9 PM. She has noted some increased bruising of her arms and legs over the last couple of weeks. Last night she had two bowel movements with dark bloody stool and clots. Her blood pressure at rehab was 96/58. Mean arterial pressure has been 73-78 in the emergency department. Heart rate is in the 60s-70s and she is on multiple AV lloyd blocking agents for atrial fibrillation. She denies any nausea, vomiting, abdominal pain, fever. There is some mention of chest pain on her EVAC run sheet however patient tells me she never had any chest pain or shortness of breath.. She denies prior issues with GI bleeding. She states her last EGD and colonoscopy were performed in 2005 prior to her gastric bypass and were normal. Denies NSAID use. In the ED she has received normal saline bolus 500 mL 2. Her hemoglobin is 12.1 CBC/BMP: 12/14/17 0634 12/13/17 0554 Significant Findings Laboratory Tests Test 12/11/17 10:05 12/11/17 10:54 12/11/17 13:10 12/11/17 16:16 Hemoglobin 11.1 GM/DL (11.6-15.3) 11.0 GM/DL (11.6-15.3) Hematocrit 33.1 % (35.0-46.0) 33.1 % (35.0-46.0) Alkaline Phosphatase 246 U/L (45-117) Troponin I LESS THAN 0.02 NG/ML LESS THAN 0.02 NG/ML Total Protein 4.5 GM/DL (6.4-8.2) Albumin 1.9 GM/DL (3.4-5.0) Stool C. difficile Toxin (PCR) POSITIVE (NEGATIVE) Test 12/11/17 18:00 12/11/17 22:39 12/12/17 02:40 12/13/17 05:54 Hemoglobin 10.8 GM/DL (11.6-15.3) 10.6 GM/DL (11.6-15.3) 11.4 GM/DL (11.6-15.3) 10.8 GM/DL (11.6-15.3) Hematocrit 33.1 % (35.0-46.0) 32.8 % (35.0-46.0) 33.9 % (35.0-46.0) 32.4 % (35.0-46.0) Red Blood Count 3.39 MIL/MM3 (4.00-5.30) 3.25 MIL/MM3 (4.00-5.30) Prothrombin Time 13.5 SEC (9.8-11.6) 12.9 SEC (9.8-11.6) Calcium Level 7.9 MG/DL (8.5-10.1) 8.1 MG/DL (8.5-10.1) Chloride Level 112 MEQ/L (98-107) 110 MEQ/L (98-107) Activated Partial Thromboplast Time 22.8 SEC (24.3-30.1) Fibrinogen 92 mg/dL (227-377) Total Protein 3.9 GM/DL (6.4-8.2) Albumin 1.7 GM/DL (3.4-5.0) Alkaline Phosphatase 230 U/L (45-117) Troponin I LESS THAN 0.02 NG/ML Cholesterol Level 60 MG/DL (120-200) Test 12/14/17 06:34 White Blood Count 11.4 TH/MM3 (4.0-11.0) Red Blood Count 3.49 MIL/MM3 (4.00-5.30) Hemoglobin 11.4 GM/DL (11.6-15.3) Mean Corpuscular Volume 100.4 FL (80.0-100.0) Neutrophils (%) (Auto) 76.4 % (16.0-70.0) Neutrophils # (Auto) 8.7 TH/MM3 (1.8-7.7) Imaging Last Impressions Lower Extremity Ultrasound 12/12/17 0000 Signed Impressions: CONCLUSION: The study is negative for bilateral lower extremity deep venous thrombosis. Chest X-Ray 12/12/17 0000 Signed Impressions: CONCLUSION: No acute pulmonary infiltrates. Abdomen/Pelvis CT 12/11/17 0000 Signed Impressions: CONCLUSION: 1. Cirrhosis of the liver without evidence of concerning mass. No evidence of ascites. 2. Fluid identified within the sigmoid colon without evidence of adjacent wall thickening or inflammatory change. There is a radiopaque 1.6 cm ovoid object i dentified within the fluid-filled rectosigmoid colon which may represent a supp ository. Similar appearing tablet is identified within the transverse colon. PE at Discharge GENERAL: This is a well-nourished, well-developed patient, in no apparent distress. CARDIOVASCULAR: Regular rate and regular rhythm without murmurs, gallops, or rubs. RESPIRATORY: Clear to auscultation. Breath sounds equal bilaterally. No wheezes , rales, or rhonchi. GASTROINTESTINAL: Abdomen soft, non-tender, nondistended. Normal, active bowel sounds MUSCULOSKELETAL: Extremities without clubbing, cyanosis, or edema. NEURO: Alert & Oriented x4 to person, place, time, situation. Moves all ext x4 Hospital Course History of seizure 5 years ago on chronic antiepileptic medication Depression disorder NOS Insomnia Daily EtOH use Currently on levetiracetam 500 mg by mouth twice daily. Continue Melatonin 6 mg p.o. nightly for sleep switch to 5 mg daily per hospital pharmacy protocol Continue bupropion 150 mg p.o. twice daily/home medication for depression Continue mirtazapine 15 mg p.o. nightly Acetaminophen 650 mg by mouth every 6 hours as needed fever Hydrocodone/acetaminophen 5/325 1 tablet every 4 hours as needed pain 1 through 5 Acute respiratory insufficiency-resolved. Hypertension/essential Hyperlipidemia Atrial fibrillation -currently normal sinus rhythm Right upper lobe pulmonary embolus 11/25 Mild TR resume metoprolol at a lower dose- hold cardizem- resume eliquis ( ok with GI- d /w ). Digoxin level 1.1. Continue digoxin 0.125 mg p.o. daily/home medication Hyperlipidemia continue atorvastatin 40 mg p.o. nightly 2D echo 11/16/17 -EF 55-60%/mild TR. Normal LV function. Pulmonary arterial pressure 36 mmHg GI bleeding GERD History of gastric bypass 2005 Cirrhotic features liver Chronic moderate protein energy malnutrition/hypoalbuminemia Elevated alkaline phosphatase s/p EGD and colonoscopy; biopsies done and pending. EGD -->The esophagus appeared normal. Severino -en-Y anastomosis was found; multiple biopsies were performed. Normal duodenal mucosa in the entire duodenum Colonoscopy --> Multiple small non-bleeding ulcers were found throughout the entire examined colon, mainly at the cecum, and in the rectum; biopsies were taken resume apixaban ; ok with GI. CT abdomen/pelvis revealed bilateral small pleural effusions, cirrhotic/nodular features liver, colonic thickening. Possibly retained suppository placed. C. difficile positive Placed on oral vancomycin 125 mg by mouth 4 times daily 10 day Anticoagulation with Eliquis Nonocclusive DVT right common femoral vein 11/11/17 resume eliquis U/s 11/11/17 nonocclusive DVT right common femoral vein. Continue ferrous sulfate 325 mg po bid. Hypothyroidism Hypoglycemia Continue levothyroxine 75 mcg by mouth daily. TSH 2.62. Osteoarthritis Recent right hip fracture status post ORIF Osteoporosis Cholecalciferol 1000 units daily to be resumed when clinically indicated PT/OT evaluate and treat Patient is on zinc sulfate 220 mg twice daily at home Pt Condition on Discharge: Stable Discharge Disposition: Discharge to SNF Discharge Time: > 30 minutes Discharge Instructions DIET: Follow Instructions for: Heart Healthy Diet Activities you can perform: Regular-No Restrictions Laura Valentino MD Dec 14, 2017 09:48
[2017-12-14] MEDS ORDERED: METO25TA3 PO (09:57)
[2017-12-14 12:00] VITALS: BP 120/75; PULSE 112; RESP 18; TEMP 99; O2SAT 94
== END 2017-12-14 16:59 | DRG 378 ==
LOC: NEPC 04:02 → NEDA 06:44 → N03A 08:52 → N05A 12-13 22:21
PROVIDERS: ADMIT Internal Medicine; ATTEND Internal Medicine
PROC: 0DB68ZX Excision of Stomach, Via Natural or Artificial Opening Endoscopic, Diagnostic (ICD-10-PCS; 2017-12-12)
PROC: 0DBH8ZX Excision of Cecum, Via Natural or Artificial Opening Endoscopic, Diagnostic (ICD-10-PCS; principal; 2017-12-12 13:41)
PROC: 0DBP8ZX Excision of Rectum, Via Natural or Artificial Opening Endoscopic, Diagnostic (ICD-10-PCS; 2017-12-12 13:41)
DX: K92.1 Melena (principal); A04.72 Enterocolitis due to Clostridium difficile, not specified as recurrent; K63.3 Ulcer of intestine; E44.0 Moderate protein-calorie malnutrition; I48.91 Unspecified atrial fibrillation; K74.60 Unspecified cirrhosis of liver; I10 Essential (primary) hypertension; K25.9 Gastric ulcer, unspecified as acute or chronic, without hemorrhage or perforation; F32.9 Major depressive disorder, single episode, unspecified; E03.9 Hypothyroidism, unspecified; E16.2 Hypoglycemia, unspecified; K76.0 Fatty (change of) liver, not elsewhere classified; Z86.73 Personal history of transient ischemic attack (TIA), and cerebral infarction without residual deficits; Z98.84 Bariatric surgery status; Z79.02 Long term (current) use of antithrombotics/antiplatelets; E78.5 Hyperlipidemia, unspecified; K21.9 Gastro-esophageal reflux disease without esophagitis; Z96.642 Presence of left artificial hip joint; Z86.711 Personal history of pulmonary embolism; Z86.718 Personal history of other venous thrombosis and embolism; R26.9 Unspecified abnormalities of gait and mobility; Z82.49 Family history of ischemic heart disease and other diseases of the circulatory system; G40.909 Epilepsy, unspecified, not intractable, without status epilepticus; G47.00 Insomnia, unspecified; Z79.899 Other long term (current) drug therapy; M19.90 Unspecified osteoarthritis, unspecified site; M81.0 Age-related osteoporosis without current pathological fracture; R09.02 Hypoxemia; R06.89 Other abnormalities of breathing
CPT/HCPCS: 71045; 74177; 76937; 80048; 80053; 80061; 80076; 80162; 82140; 82550; 82948; 83605; 83735; 84100; 84443; 84484; 85014; 85018; 85025; 85384; 85610; 85730; 86850; 86900; 86901; 86920; 87493; 87641; 88305; 93005; 93970; 94150; 94640; 94664; 94667; 99285; C9113; J2370; J2765; J3411; J3430; J7040; J7070; J7120; Q9967